=== PATIENT | female | born 1935 | race Caucasian/White ===

== ENCOUNTER 2017-01-27 17:41 | Inpatient (IN) | payer OTHER ==
[~2017-01-27] VITALS: Ht 152.4 cm; Wt 77.1 kg
[~2017-01-27 17:41] MED LIST: ASPI-435 PO; CHOL20009 PO; CLOP1TAB5 PO; DOXY100C76 PO; DULO60CA44 PO; FURO40TA3 PO; IMD/2 PO; INSU1INJ17 SC; ISOS120T5 PO; ISOS60TA25 PO; LEVO50TA6 PO; LISI-729 PO; LORA-741 PO; METO50TA7 PO; MORP1TAB13 PO; NITRSPR6; ONDA4TAB46 PO; OXGN; POLY335025 PO; RNXER500 PO; SENN-65 PO; ZNTT/150 PO
--- NOTE | 2017-01-27 17:53 | EMERGENCY ROOM VISIT NOTE ---
History Report prepared by Miles: Milton Batista Under the Supervision of: Dr. Crissy Bennett M.D. First contact with patient: 17:43 Stated Complaint: AB PAIN, FEVER, NAUSEA, VOMITING, WOUND History of Present Illness The patient is an 81 year old female who presents to the Emergency Room via EMS with complaints of worsening abdominal pain recently. She says that she has chronic pancreatitis, and has had two-thirds of it removed. The patient states that she has abdominal pain most of the time, but recently she has not been "able to handle the pain". She notes that she has been having intermittent episodes of vomiting, as well as intermittent urinary difficulties. Per the nursing staff, the patient was noted to have a fever of 103 prior to arrival. The patient adds that she has an infected wound, and her right leg is noted to be warm. Source of History: patient, nursing staff Onset: Recently Position: abdomen Quality: other (chronic pancreatitis) Timing: worsening Associated Symptoms: + fevers, + vomiting, + urinary symptoms Note: Associated symptoms: Infected wound. Warm right leg. Review of Systems See HPI for pertinent positives & negatives. A total of 10 systems reviewed and were otherwise negative. Past Medical & Surgical Medical Problems: (1) CAD (coronary artery disease) (2) Carotid stenosis (3) Chronic pancreatitis (4) DM2 (diabetes mellitus, type 2) (5) Hypothyroidism (6) Hypoxemia (7) Pacemaker (8) SSS (sick sinus syndrome) (9) Valvular disease Surgical Problems: (1) H/O splenectomy (2) H/O: hysterectomy (3) History of appendectomy (4) History of back surgery (5) History of pancreatic surgery (6) History of partial colectomy (7) Hx of CABG (8) S/P cholecystectomy Family History Patient reports no known family medical history. Social History Smoking Status: Never Smoker Drug Use: none Marital Status: Housing Status: senior care Occupation Status: retired Current/Historical Medications Scheduled Aspirin (Aspirin 81), 162 MG PO QAM Cholecalciferol (Vitamin D), 2,000 UNITS PO DAILY Clopidogrel Bisulfate (Plavix), 75 MG PO DAILY Diltiazem Hcl (Cardizem), 30 MG PO TID Duloxetine Hcl (Cymbalta), 60 MG PO DAILY Fenofibrate (Tricor ), 134 MG PO DAILY Furosemide (Lasix), 40 MG PO DAILY Home O2 Therapy (Oxygen), 2 LITERS NA PRN Insulin Isophane & Reg (Human) (Novolin 70/30 Relion), 64 UNIT(INT) SC QDB Insulin Isophane & Reg (Human) (Novolin 70/30 Relion), 50 UNITS SC QPM Isosorbide Mononitrate Ext Rel (Imdur Ext Rel), 120 MG PO QAM Levothyroxine Sodium (Levothyroxine Sodium), 100 MCG PO QAM Lisinopril (Zestril), 5 MG PO DAILY Metoprolol Succ (Toprol Xl) (Toprol-Xl ), 100 MG PO BID Morphine Sulfate (Morphine Sulfate Er), 60 MG PO BID Morphine Sulfate (Ayesha), 10 MG PO QAM Mupirocin (Bactroban 2% Oint), 1 APPLN EXT DAILY Polyethylene Glycol 3350 (Miralax), 1 DOSE PO DAILY Pregabalin (Lyrica), 25 MG PO BID Ranitidine (Zantac), 150 MG PO BID Ranolazine (Ranexa), 500 MG PO BID Senna/Docusate Sod (Senokot S), 4 TAB PO BID Zinc Oxide (Topical) (Desitin), 1 APPLN TOP DAILY Scheduled PRN Acetaminophen Tab (Tylenol), 650 MG PO Q4 PRN for Pain Loperamide Hcl (Imodium), 2 MG PO BID PRN Lorazepam (Ativan), 0.5 MG PO TID PRN Nitroglycerin (Nitroglycerin Lingual), 1 SPRAY PO Q5M PRN for Pain Ondansetron Hcl (Zofran), 4 MG PO DAILY PRN for Nausea Oxycodone Hcl (Oxycodone Hcl), 10 MG PO Q4H PRN for Pain Allergies Coded Allergies: Amitriptyline (Verified Allergy, Severe, 01/27/17) Codeine (Verified Allergy, Severe, 01/27/17) Cortisone (Verified Allergy, Severe, 01/27/17) Fluconazole (Verified Allergy, Severe, 01/27/17) Iodine (Verified Allergy, Severe, 01/27/17) Pentazocine (Verified Allergy, Severe, SHORTNESS OF BREATH, 01/27/17) Tromethamine (Verified Allergy, Severe, 01/27/17) Gabapentin (Verified Allergy, Mild, 01/27/17) Diflunisal (Verified Allergy, Unknown, unknown, 01/27/17) dayspring Ketorolac (Verified Allergy, Unknown, 01/27/17) Naloxone (Verified Allergy, Unknown, unknown, 01/27/17) dayspring Prochlorperazine (Verified Allergy, Unknown, 01/27/17) Sulfa Antibiotics (Verified Allergy, Unknown, EXTREMELY ITCHY, 01/27/17) Tetracycline (Verified Allergy, Unknown, unk, 01/27/17) gmg Phenothiazines (Verified Adverse Reaction, Intermediate, ANXIOUS, 01/27/17 ) Promethazine (Verified Adverse Reaction, Intermediate, ANXIOUS WITH DOSE ON 01/13/10, 01/27/17) Amlodipine (Verified Adverse Reaction, Unknown, weakness, 01/27/17) gmg Diazepam (Verified Adverse Reaction, Unknown, agitation, 01/27/17) gmg Physical Exam Vital Signs Date Time Temp Pulse Resp B/P (MAP) Pulse Ox O2 Delivery O2 Flow Rate FiO2 01/27/17 20:45 59 16 94 01/27/17 20:31 119/46 01/27/17 20:30 60 17 95 Nasal Cannula 3.0 01/27/17 20:15 60 18 95 01/27/17 20:01 123/46 01/27/17 20:00 60 15 92 Nasal Cannula 3.0 01/27/17 19:45 60 18 90 01/27/17 19:31 108/58 01/27/17 19:30 60 17 92 01/27/17 19:19 38.1 66 18 118/54 92 Nasal Cannula 3.0 01/27/17 18:00 24 87 Room Air 01/27/17 17:59 Room Air 01/27/17 17:54 39.3 70 24 141/58 93 Room Air 01/27/17 17:53 70 Physical Exam Vital signs reviewed. Noted to be febrile General: Elderly, chronically ill-appearing 81 year old female, in no significant distress. HEENT: No scleral icterus, PERRLA, neck supple. Atraumatic. Cardiovascular: Regular rate and rhythm, no extra sounds. Pulmonary: Clear to auscultation bilaterally, normal work of breathing. Abdomen: Obese abdomen. Soft, nontender, nondistended, positive bowel sounds. Musculoskeletal: Sacral decubitus ulcer with surrounding erythema, warm to touch , right lower extremity atrophy with distal erythema over lower extremity. No ulceration or lesion appreciated to lower extremities. Neurologic: Patient awake alert and oriented x 3 Skin: Warm, dry. Medical Decision & Procedures ER Provider Diagnostic Interpretation: X-ray results as stated below per interpretation by me and the radiologist: CHEST ONE VIEW PORTABLE CLINICAL HISTORY: Sepsis dyspnea COMPARISON STUDY: 1027 2] 16 FINDINGS: Mild stable cardiomegaly. Permanent bipolar cardiac pacemaker. Lungs are clear. Diaphragms smooth. IMPRESSION: Mild stable cardiomegaly. No acute process. The above report was generated using voice recognition software. It may contain grammatical, syntax or spelling errors. Electronically signed by: Mart Henson M.D. 01/27/2017 6:44 PM Dictated Date/Time: 01/27/2017 6:43 PM Laboratory Results Test 01/27/17 17:25 01/27/17 18:42 01/27/17 18:52 Prothrombin Time 11.7 SECONDS (9.0-12.0) Prothromb Time International Ratio 1.1 (0.9-1.1) Total Bilirubin 0.5 mg/dl (0.2-1) Aspartate Amino Transf (AST/SGOT) 23 U/L (15-37) Alanine Aminotransferase (ALT/SGPT) 13 U/L (12-78) Alkaline Phosphatase 88 U/L (45-117) Total Protein 7.9 gm/dl (6.4-8.2) Albumin 2.9 gm/dl (3.4-5.0) Globulin 5.0 gm/dl (2.5-4.0) Albumin/Globulin Ratio 0.6 (0.9-2) Lipase 62 U/L (73-393) D-Dimer 740 ug/L FEU (0-500) Bedside Lactic Acid Venous 1.84 mmol/L (0.90-1.70) Laboratory results per my review. Medications Administered Medications (Trade) Dose Ordered Sig/Robert Route Start Time Stop Time Status Last Admin Dose Admin Sodium Chloride 500 ml @ 999 mls/hr Q31M ONCE IV 01/27/17 17:56 01/27/17 18:26 DC 01/27/17 18:00 999 MLS/HR Acetaminophen (Tylenol Tab) 650 mg NOW STAT PO 01/27/17 17:56 01/27/17 17:59 DC 01/27/17 18:13 650 MG Piperacillin Sod/ Tazobactam Sod (Zosyn Iv) 4.5 gm NOW STAT IV 01/27/17 17:58 01/27/17 18:00 DC 01/27/17 19:18 4.5 GM ECG Indication: abdominal pain Rate (beats per minute): 64 Rhythm: other (atrial sensed, ventricularly paced) Findings: no ectopy, other (prolonged AV conduction) ED Course 1746: Past medical records reviewed. The patient was evaluated in room B8. A complete history and physical examination was performed. 1755: Ordered Tylenol Tab 650 mg PO, NSS 500 ml @ 999 mls/hr IV. 1757: Ordered Zosyn IV 4.5 gm. 1999: Ordered Vancomycin HCl 1900 mg/Sodium Chloride 538 ml @ 200 mls/hr IV. 2019: Upon reevaluation, the patient is resting comfortably. I discussed laboratory and radiographic results with her. She verbalized agreement of the treatment plan. The patient will be evaluated for further management and care. 2028: I reviewed the patient's case with Dr. Sayra Orellana intensive care unit registered nurse. He will evaluate the patient for further management. Medical Decision Differential diagnosis: Influenza, other viral illness, pneumonia, urinary tract infection, metabolic abnormality, medication effect, cellulitis, meningitis, intra-abdominal source. This patient was evaluated and appeared to be in no significant distress. Patient is noted to be febrile. She is a large area of erythema to the sacrum and multiple chronic skin changes secondary to surgeries. Patient also has an area of erythema to the right lower extremity that is more subtle without wound. Patient was hydrated with normal saline solution. Laboratory work reveals a marked leukocytosis. She was medicated with IV Zosyn and oral Tylenol. She does have multiple medication allergies. Blood cultures are pending. Patient's case was discussed with the hospitalist service will evaluate the patient for further management. Medication Reconcilliation Current Medication List: was personally reviewed by me Blood Pressure Screening Patient's blood pressure: Normal blood pressure Consults Time Called: 2021 Consulting Physician: Dr. Sayra Orellana intensive care unit registered nurse Returned Call: 2028 I reviewed the patient's case with Dr. Sayra Orellana intensive care unit registered nurse. He will evaluate the patient for further management. Impression Primary Impression: Cellulitis of sacral region Additional Impression: Fever Scribe Attestation The scribe's documentation has been prepared under my direction and personally reviewed by me in its entirety. I confirm that the note above accurately reflects all work, treatment, procedures, and medical decision making performed by me. Departure Information Dispostion Being Evaluated By Hospitalist Referrals Marina Mclaughlin M.D. (PCP) Problem Qualifiers
[2017-01-27 17:54] VITALS: Ht 152.4 cm; Wt 77.1 kg
[2017-01-27] MEDS ORDERED: ACETAMINOPHEN 325 MG TAB PO STA (17:56)
[2017-01-27] MEDS ORDERED: SODIUM CHLORIDE 0.9% 1000ML 500 ML IV ONE (17:56)
[2017-01-27] MEDS ORDERED: PIPERACILLIN/TAZOBACTAM 4.5 GM/100ML D5W IV STA (17:58)
[2017-01-27 18:21] LABS: BASO ABS # 0.01 K/uL (0-0.2); COMPLETE YES; EOS % 1.8 %; HEMATOCRIT 37.8 % (37-47); IG% 0.4 %; LYMPH % 10.8 %; LYMPH ABS # 2.36 K/uL (1.2-3.4); MEAN CELL VOLUME 95.9 fL (80-100); MEAN CORPUSCULAR HEMOGLOBIN 30.7 pg (25-34); MEAN PLATELET VOLUME 9.7 fL (7.4-10.4); PLATELET COUNT 416 K/uL (130-400); RED BLOOD COUNT 3.94 M/uL (4.2-5.4); WHITE BLOOD COUNT 21.83 K/uL (4.8-10.8)
[2017-01-27] MEDS ORDERED: ACET325T96 PO (18:21)
[2017-01-27] MEDS ORDERED: ZINC40OI13 TOP (18:21)
[2017-01-27] MEDS ORDERED: PREG1CAP36 PO (18:21)
[2017-01-27] MEDS ORDERED: OXYC-164 PO (18:21)
[2017-01-27] MEDS ORDERED: FENO134C2 PO (18:21)
[2017-01-27] MEDS ORDERED: BCTROWC EXT (18:21)
[2017-01-27] MEDS ORDERED: METO100T44 PO (18:21)
[2017-01-27] MEDS ORDERED: DILT30TA PO (18:21)
[2017-01-27] MEDS ORDERED: MORP1CAP PO (18:21)
[2017-01-27] MEDS ORDERED: NITR0.1S PO (18:21)
[2017-01-27 18:29] LABS: INR 1.1 (0.9-1.1); PROTHROMBIN TIME (PATIENT) 11.7 SECONDS (9.0-12.0)
[2017-01-27 18:34] LABS: BUN/CREATININE RATIO 19.9 (10-20); CALCIUM 8.6 mg/dl (8.5-10.1); CREATININE 1.1 mg/dl (0.60-1.20)
[2017-01-27 18:37] LABS: ALB/GLOB RATIO 0.6 (0.9-2)
--- NOTE | 2017-01-27 18:45 | DIAGNOSTIC IMAGING REPORT ---
CHEST ONE VIEW PORTABLE CLINICAL HISTORY: Sepsis dyspnea COMPARISON STUDY: 1027 2] 16 FINDINGS: Mild stable cardiomegaly. Permanent bipolar cardiac pacemaker. Lungs are clear. Diaphragms smooth. IMPRESSION: Mild stable cardiomegaly. No acute process. The above report was generated using voice recognition software. It may contain grammatical, syntax or spelling errors. Electronically signed by: Mart Henson M.D. 01/27/2017 6:44 PM Dictated Date/Time: 01/27/2017 6:43 PM
[2017-01-27] MEDS ORDERED: VANCOMYCIN INJ 1,900 MG in SODIUM CHLORIDE 0.9% 500ML 500 ML IV SCH (20:00)
[2017-01-27 21:10] LABS: MAGNESIUM 1.6 mg/dl (1.8-2.4)
[2017-01-27] MEDS ORDERED: METRONIDAZOLE 500MG / 100ML NSS IV STA (21:34)
[2017-01-27] MEDS ORDERED: GLUCOSE 40% GEL 15 GM TUBE PO PRN (21:45)
[2017-01-27] MEDS ORDERED: ACETAMINOPHEN 325 MG TAB PO PRN (21:45)
[2017-01-27] MEDS ORDERED: DEXTROSE 50% 50 ML SYR IV PRN (21:45)
[2017-01-27] MEDS ORDERED: HYDROmorphone INJ 0.5 MG/0.5 ML SYR IV PRN (21:45)
[2017-01-27] MEDS ORDERED: ONDANSETRON INJ 2 MG/ML 2 ML VIAL IV PRN (21:45)
[2017-01-27] MEDS ORDERED: GLUCOSE 10 TABS/TUBE PO PRN (21:45)
[2017-01-27] MEDS ORDERED: NITROGLYCERIN 0.4 MG SL PER TAB CHARGE SL PRN (21:45)
[2017-01-27] MEDS ORDERED: GLUCAGON FOR INJ 1 MG VIAL SQ PRN (21:45)
[2017-01-27] MEDS ORDERED: OXYCODONE HCL IR 5 MG TAB (IMMEDIATE RELEASE) PO PRN (21:45)
[2017-01-27 22:01] LABS: ALLEN TEST POS (POS); ARTERIAL BLOOD GAS BASE EXCESS 1.8 mEq/L (-9-1.8); ARTERIAL BLOOD GAS HCO3 27 mmol/L (19-24); ARTERIAL BLOOD GAS PO2 111 mm/Hg (80-95); ARTERIAL BLOOD GAS pH 7.39 (7.35-7.45); O2 ADMINISTRATION 3 LITERS
[2017-01-27 22:15] LABS: URINE APPEARANCE CLEAR (CLEAR); URINE COLOR DK YELLOW; URINE EPITHELIAL CELL AUTO >30 /lpf (0-5); URINE NITRITE NEG (NEG); URINE SPECIFIC GRAVITY 1.026 (1.000-1.030); UROBILINOGEN NEG (NEG); ZZURINE CULT IF INDIC CATH NO
[2017-01-27 22:21] LABS: MANUAL MICROSCOPIC REQUIRED? NO; REVIEW REQ? NO; URINE BILIRUBIN NEG (NEG)
[2017-01-27] MEDS ORDERED: MAGNESIUM SULFATE 1GM / D5W 1 GM BAG ONE (22:58)
[2017-01-27 23:35] VITALS: BP 97/30; PULSE 59; TEMP 36.6; O2SAT 100
[2017-01-27] MEDS ORDERED: INSULIN ASPART 100 UNITS/ML 3 ML PEN SC STA (23:47)
[2017-01-27] MEDS ORDERED: MAGNESIUM SULFATE 1GM / D5W 1 GM in PREMIXED IN D5W 100 ML IV STA (23:53)
[2017-01-27] MEDS ORDERED: SODIUM CHLORIDE 0.9% 1000ML 1,000 ML IV SCH (23:59)
[2017-01-28] VITALS (9 sets, daily range): BP systolic 109–145; BP diastolic 32–63; PULSE 59–61; TEMP 36.6–37.3; O2SAT 95–100
[2017-01-28] MEDS ORDERED: HEPARIN IV LOW DOSE NO BOLUS STA (00:13)
[2017-01-28] MEDS ORDERED: INSULIN GLARGINE SOLOSTAR 100 UNITS/ML 3 ML PEN SC ONE (00:13)
[2017-01-28] MEDS ORDERED: SODIUM CHLORIDE 0.9% 1000ML 1,000 ML IV ONE (00:15)
[2017-01-28] MEDS: HEPARIN 25,000 UNIT/500ML D5W 500 ML IV PRN ×2 (00:51→08:38)
[2017-01-28] MEDS ORDERED: CEFEPIME IV 2,000 MG in SYRINGE 7.5 ML IV SCH (01:00)
[2017-01-28] MEDS: LEVOTHYROXINE 50 MCG TAB PO SCH (05:46)
--- NOTE | 2017-01-28 06:36 | DIAGNOSTIC IMAGING REPORT ---
ABD/PELVIS NO IV OR ORAL CONT CT DOSE: 721.01 mGy.cm HISTORY: Pain L abd pain TECHNIQUE: Multiaxial CT images of the abdomen and pelvis were performed without contrast. A dose lowering technique was utilized adhering to the principles of ALARA. COMPARISON STUDY: 12/14/2012 FINDINGS: Mild left basilar atelectatic and basilar parenchymal infiltrative change. There is spleen and pancreas appear unremarkable. The kidneys are negative for hydronephrosis. Multiple renal vascular calcifications are present bilaterally. The appendix is surgically absent. There are multiple calcified soft tissue masses involving the posterior gluteal region, anterior to the proximal right and to lesser extent left femur, as well as along the left anterior abdominal wall best seen image 62. Given their course associated calcifications and multiplicity, possibility of a neoplastic process is perhaps less likely. Mild bladder wall thickening. Soft tissue prominence posterior to the rectum and anal verge. Soft tissue prominence medial to the right hip. IMPRESSION: 1. Bibasilar atelectatic and/or infiltrative change. 2. Prior cholecystectomy and appendectomy. 3. Nonobstructive bowel pattern. 4. Scattered soft tissue calcified masses throughout the anterior and posterior abdominal/pelvic region as well as in the region of the proximal right and to lesser extent left femur. 5. Additional soft tissue mass posterior to the anal verge. Given the multiplicity and calcification, the possibly of a entity such as as calcific myositis must be considered. Clinical correlation is suggested. 6. Note is made that the bulk of these calcified soft tissue masses were present on the prior study and do not appear to be progressive. This suggests a nonacute etiology. IMPRESSION: No significant abnormality identified within the abdomen or pelvis. The above report was generated using voice recognition software. It may contain grammatical, syntax or spelling errors. Electronically signed by: Mart Henson M.D. 01/28/2017 6:35 AM Dictated Date/Time: 01/28/2017 6:27 AM
--- NOTE | 2017-01-28 07:04 | DIAGNOSTIC IMAGING REPORT ---
VENOUS DOPPLER LWR EXT BILA HISTORY: Pain. Edema. PE COMPARISON STUDY: 12/26/2015 FINDINGS: There is normal compressibility, flow, and augmentation within the bilateral lower extremity deep venous systems. IMPRESSION: No DVT within the right or left lower extremity. The above report was generated using voice recognition software. It may contain grammatical, syntax or spelling errors. Electronically signed by: Mart Henson M.D. 01/28/2017 7:02 AM Dictated Date/Time: 01/28/2017 7:01 AM
[2017-01-28] MEDS: TRICOR~ORDER AWAITING ACTION SCH ×4 (07:20→23:48)
[2017-01-28 07:27] LABS: BASO % 0.1 %; BASO ABS # 0.03 K/uL (0-0.2); COMPLETE YES; EOS % 3.1 %; HEMATOCRIT 38.4 % (37-47); IG% 0.3 %; LYMPH % 9.9 %; MEAN CELL VOLUME 95.8 fL (80-100); MEAN CORPUSCULAR HEMOGLOBIN 30.4 pg (25-34); MEAN CORPUSCULAR HGB CONC 31.8 g/dl (32-36); MEAN PLATELET VOLUME 9.3 fL (7.4-10.4); MONO % 8.5 %; NEUT % 78.1 %; PLATELET COUNT 384 K/uL (130-400); RED BLOOD COUNT 4.01 M/uL (4.2-5.4); WHITE BLOOD COUNT 20.26 K/uL (4.8-10.8)
[2017-01-28 07:28] LABS: PARTIAL THROMBOPLASTIN RATIO 1.3
[2017-01-28 07:44] LABS: BUN/CREATININE RATIO 21.8 (10-20); CALCIUM 8.6 mg/dl (8.5-10.1); MAGNESIUM 2.1 mg/dl (1.8-2.4); POTASSIUM 3.8 mmol/L (3.5-5.1)
[2017-01-28] MEDS: INSULIN ASPART 100 UNITS/ML 3 ML PEN SC SCH ×4 (07:56→20:32)
[2017-01-28] MEDS ORDERED: HEPARIN IV BOLUS 4,000 UNIT in SYRINGE 0 ML IV ONE (08:00)
[2017-01-28] MEDS: LISINOPRIL 5 MG TAB PO SCH (08:17)
[2017-01-28] MEDS: ISOSORBIDE MONONITRATE 60 MG TABCR PO SCH (08:17)
[2017-01-28] MEDS: RANITIDINE HCL 150 MG TAB PO SCH ×2 (08:17→20:25)
[2017-01-28] MEDS: CLOPIDOGREL BISULFATE 75 MG TAB PO SCH (08:17)
[2017-01-28] MEDS: ASPIRIN 81 MG ECTAB PO SCH (08:18)
[2017-01-28] MEDS: DILTIAZEM HCL 30 MG TAB PO SCH ×3 (08:18→20:25)
[2017-01-28] MEDS: METOPROLOL SUCC 50MG EXT REL TAB PO SCH ×2 (08:19→20:27)
[2017-01-28] MEDS: DULOXETINE HCL 60 MG CAP PO SCH (08:19)
[2017-01-28] MEDS: METRONIDAZOLE / NSS 500 MG in PREMIXED NSS 100 ML IV SCH ×3 (08:20→23:49)
[2017-01-28] MEDS: RANOLAZINE 500 MG ER TAB PO SCH ×2 (08:20→20:26)
[2017-01-28] MEDS: PREGABALIN 25MG CAP PO SCH ×2 (08:28→20:38)
[2017-01-28] MEDS: MoRPHine SULFATE CR 15 MG TAB (MS CONTIN) PO SCH ×2 (08:28→20:24)
[2017-01-28] MEDS: INSULIN GLARGINE SOLOSTAR 100 UNITS/ML 3 ML PEN SC SCH ×2 (08:39→20:32)
[2017-01-28] MEDS ORDERED: OXYCODONE HCL IR 5 MG TAB (IMMEDIATE RELEASE) PO PRN (08:45)
[2017-01-28] MEDS ORDERED: VANCOMYCIN CONSULT ACTIVE PRN (08:45)
[2017-01-28] MEDS ORDERED: CEFEPIME CONSULT ACTIVE PRN ×2 (09:00)
[2017-01-28] MEDS ORDERED: ENOXAPARIN 40 MG/0.4 ML SYR SC SCH (09:00)
[2017-01-28] MEDS ORDERED: VANCOMYCIN INJ 1,750 MG in SODIUM CHLORIDE 0.9% 500ML 500 ML IV SCH (09:30)
--- NOTE | 2017-01-28 11:33 | HISTORY & PHYSICAL EXAMINATION ---
DATE OF ADMISSION: 01/27/2017 PRIMARY CARE DOCTOR: Marina JUARES MD. Patient is a [facility] resident. CHIEF COMPLAINT: Shortness of breath, abdominal pain. HISTORY OF PRESENT ILLNESS: History obtained from patient and records. Medical history significant for CAD status post CABG, sick sinus syndrome pacemaker, HTN, DM 2 insulin requiring; hypertension, PVD, chronic pain on narcotics, chronic pancreatitis as per records. Recent confinement last November 2015 for chest pain. Today patient noted to have worsening abdominal pain on the left, achy, loose stools, non- bloody, some nausea, vomiting. No chest pain, admits of some shortness of breath. No cough symptoms. As per nursing staff temperature was noted to be 103. At the Emergency Room, the patient received Zosyn for sepsis. Reddened sacral decubitus with some drainage. MEDICAL HISTORY: As above. SURGERIES: She has had CABG, cholecystectomy, partial colectomy, pancreatic surgery, back surgery, appendectomy, hysterectomy, splenectomy. HOME MEDICATIONS: Include MiraLax, Lyrica, nitroglycerin, Zofran, oxycodone, Imodium, Ayesha mupirocin, Bactroban, Topral XL, Novolin, Imdur ER, levothyroxine, Ativan, Zestril, Cymbalta, Lasix, Tricor, sleep apnea on home O2 at night as per patient, Novolin, aspirin, Tylenol, vitamin D, Plavix, Cardizem. ALLERGIES: AMITRIPTYLINE, CODEINE, CORTISONE, DIAZEPAM, IODINE, NALOXONE, PENTAZOCINE , PROMETHAZINE, TETRACYCLINE, TROMETHAMINE, TORADOL, AMLODIPINE, FLUCONAZOLE, GABAPENTIN, PHENOTHIAZINE, SULFA. FAMILY HISTORY: Hypertension. PERSONAL AND SOCIAL HISTORY: Nonsmoker, no chronic intake of alcoholic beverages. 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 REVIEW OF SYSTEMS: As per HPI, all 10 systems reviewed. All other ROS negative. PHYSICAL EXAMINATION: VITAL SIGNS: Blood pressure was noted to be 130/86, pulse rate 60, RR 15, temperature 38.1, sats 87 on room air, later 92 on 3 liters. GENERAL: Obese, slightly uncomfortable, no respiratory distress. SKIN: Normal color. Warm. HEENT: [place] palpable conjunctivae. No ptosis. Dry buccal mucosa. NECK: Short neck. No tenderness. LUNGS: Decreased breath sounds. No tenderness. CV: Regular rate and rhythm, palpable LE pulses. ABDOMEN: left-sided abdominal tenderness, some distention. BACK : Ulcerated wound, sacrum with surrounding induration on the with minimal yellow drainage. EXTREMITIES: Minimal LE edema, no tenderness, no gross deformities. NEUROLOGIC: Coherent. No gross focality. LABORATORY DATA: Hemoglobin 12.1, hematocrit 37.8, white blood cell count 21, platelets 416. Sodium noted to be 136, potassium 4, chloride 101, CO2 27, BUN 20, creatinine 1.1, glucose 128. D-dimer was abnormal. trop 0 Hemoglobin A1c October 2016 was 7.4. Chest x-ray cardiomegaly. UA, small wbc est positive. EKG as per my interpretation, paced rhythm. ASSESSMENT: 1. Acute hypoxemic respiratory failure rule out pulmonary embolism. 2. Sepsis possible sources : UTI diarrhea, rule out Clostridium difficile decubitus wound. 3. Abdominal pain Rule out colitis 4. hx chronic pancreatis as per records 5. Sick sinus syndrome status post pacemaker. 6. DM2 insulin requiring, reasonable control as of recent outpatient hemoglobin A1c . 7. Coronary artery disease sp CABG 8. Peripheral vascular disease as per records. 9. Chronic pain on narcotics. Occasional myoclonic jerks noted on exam. PLAN: PCU supplemental O2 baseline ABG. PE workup (VQ scan due to IV CT contrast dye allergy, LE Dopplers) IV heparin until PE ruled out CT abdomen and pelvis RE abdominal pain. Cultures, stool C. difficile Cefepime for possible UTI. Flagyl for presumptive C. dif in light of sepsis criteria. Discontinue Flagyl if stool C. diff negative. Vancomycin, cefepime for infected decubitus wound. May need ID consultation. Wound care nurse consult for wound care. Further management pending workup results. Basal insulin, ISS BG goal 140-180. DVT prophylaxis. Heparin DNR. MTDD
--- NOTE | 2017-01-28 12:45 | DIAGNOSTIC IMAGING REPORT ---
LUNG IMAGING VQ CLINICAL HISTORY: 81 years-old Female presenting with shortness of breath and hypoxemia. TECHNIQUE: Immediately following the inhalation of 33.2 mCi of technetium 99 M DTPA for the ventilation scan and the intravenous administration of 5.6 mCi of technetium 99 M MAA for the perfusion scan, anterior, oblique, lateral, and posterior views of the chest were obtained. Modified PIOPED II criteria were utilized for assessment. COMPARISON: Chest x-ray performed on 01/27/2017. FINDINGS: Photopenic defect on both perfusion and ventilation imaging corresponds with the right subclavian pacer. Cardiomegaly also accounts for the relative increased photopenic defect of the lingula on both ventilation and perfusion. No mismatched defects are identified on this examination. Perfusion and ventilation to both lungs is preserved. Radiotracer accumulation in the region of the hypopharynx/larynx likely from incomplete inspiration or swallowing. Reference: Modified PIOPED II criteria Normal: No perfusion defects. Very low likelihood ratio: Nonsegmental, perfusion defect < chest x-ray lesion, 1-3 small segmental defects, solitary triple matched defect (< or = 1 segment) in mid or upper lung, stripe sign, solitary large pleural effusion, > or = to 2 matched defects with regionally normal chest x-ray. High likelihood ratio: > or = 2 large mismatch segmental defects. Nondiagnostic: All other findings. IMPRESSION: Normal. Electronically signed by: Abimael Ruiz M.D. 01/28/2017 12:43 PM Dictated Date/Time: 01/28/2017 12:38 PM
--- NOTE | 2017-01-28 13:55 | Pharmacy Progress Note ---
Pharmacy Antibiotic Consult Date of Service: Jan 28, 2017. Pharmacy Dosing Scope Pharmacy is consulted to initiate cefepime and vancomycin IV dosing therapy, order appropriate labs and adjust drug dose/frequency. Subjective The patient is a 81 year old female admitted on Jan 27, 2017 at 20:46. History of DM, complicated UTI, infected sacral wound. Objective Height (Feet): 5 Height (Inches): 0 Weight (Kilograms): 75.700 Lab Results (24hrs): Test 01/27/17 17:25 01/27/17 18:42 01/27/17 18:52 01/27/17 21:15 White Blood Count 21.83 K/uL (4.8-10.8) Red Blood Count 3.94 M/uL (4.2-5.4) Hemoglobin 12.1 g/dL (12.0-16.0) Hematocrit 37.8 % (37-47) Mean Corpuscular Volume 95.9 fL (80-100) Mean Corpuscular Hemoglobin 30.7 pg (25-34) Mean Corpuscular Hemoglobin Concent 32.0 g/dl (32-36) Platelet Count 416 K/uL (130-400) Mean Platelet Volume 9.7 fL (7.4-10.4) Neutrophils (%) (Auto) 79.0 % Lymphocytes (%) (Auto) 10.8 % Monocytes (%) (Auto) 8.0 % Eosinophils (%) (Auto) 1.8 % Basophils (%) (Auto) 0.0 % Neutrophils # (Auto) 17.24 K/uL (1.4-6.5) Lymphocytes # (Auto) 2.36 K/uL (1.2-3.4) Monocytes # (Auto) 1.75 K/uL (0.11-0.59) Eosinophils # (Auto) 0.39 K/uL (0-0.5) Basophils # (Auto) 0.01 K/uL (0-0.2) RDW Standard Deviation 55.5 fL (36.4-46.3) RDW Coefficient of Variation 15.9 % (11.5-14.5) Immature Granulocyte % (Auto) 0.4 % Immature Granulocyte # (Auto) 0.08 K/uL (0.00-0.02) Prothrombin Time 11.7 SECONDS (9.0-12.0) Prothromb Time International Ratio 1.1 (0.9-1.1) Activated Partial Thromboplast Time 26.8 SECONDS (21.0-31.0) Partial Thromboplastin Ratio 1.0 Sodium Level 136 mmol/L (136-145) Potassium Level 4.0 mmol/L (3.5-5.1) Chloride Level 101 mmol/L (98-107) Carbon Dioxide Level 27 mmol/L (21-32) Anion Gap 7.0 mmol/L (3-11) Blood Urea Nitrogen 22 mg/dl (7-18) Creatinine 1.10 mg/dl (0.60-1.20) Est Creatinine Clear Calc Drug Dose 35.8 ml/min Estimated GFR () 54.1 Estimated GFR (Non- 46.7 BUN/Creatinine Ratio 19.9 (10-20) Random Glucose 128 mg/dl (70-99) Calcium Level 8.6 mg/dl (8.5-10.1) Magnesium Level 1.6 mg/dl (1.8-2.4) Total Bilirubin 0.5 mg/dl (0.2-1) Aspartate Amino Transf (AST/SGOT) 23 U/L (15-37) Alanine Aminotransferase (ALT/SGPT) 13 U/L (12-78) Alkaline Phosphatase 88 U/L (45-117) Total Protein 7.9 gm/dl (6.4-8.2) Albumin 2.9 gm/dl (3.4-5.0) Globulin 5.0 gm/dl (2.5-4.0) Albumin/Globulin Ratio 0.6 (0.9-2) Lipase 62 U/L (73-393) D-Dimer 740 ug/L FEU (0-500) Bedside Lactic Acid Venous 1.84 mmol/L (0.90-1.70) Urine Color DK YELLOW Urine Appearance CLEAR (CLEAR) Urine pH 5.0 (4.5-7.5) Urine Specific Howell 1.026 (1.000-1.030) Urine Protein NEG (NEG) Urine Glucose (UA) NEG (NEG) Urine Ketones NEG (NEG) Urine Occult Blood NEG (NEG) Urine Nitrite NEG (NEG) Urine Bilirubin NEG (NEG) Urine Urobilinogen NEG (NEG) Urine Leukocyte Esterase SMALL (NEG) Urine WBC (Auto) 1-5 /hpf (0-5) Urine RBC (Auto) 5-10 /hpf (0-4) Urine Hyaline Casts (Auto) 1-5 /lpf (0-5) Urine Epithelial Cells (Auto) >30 /lpf (0-5) Urine Bacteria (Auto) NEG (NEG) Test 01/27/17 21:48 01/28/17 07:10 01/28/17 07:22 01/28/17 10:57 Arterial Blood pH 7.39 (7.35-7.45) Arterial Blood Partial Pressure CO2 46 mmHg (35-46) Arterial Blood Partial Pressure O2 111 mm/Hg (80-95) Arterial Blood HCO3 27 mmol/L (19-24) Arterial Blood Oxygen Saturation 98.0 % (90-95) Arterial Blood Base Excess 1.8 mEq/L (-9-1.8) Arterial Blood Gas Delivery 3 LITERS Ace Test POS (POS) Lactic Acid Level 1.2 mmol/L (0.4-2.0) White Blood Count 20.26 K/uL (4.8-10.8) Red Blood Count 4.01 M/uL (4.2-5.4) Hemoglobin 12.2 g/dL (12.0-16.0) Hematocrit 38.4 % (37-47) Mean Corpuscular Volume 95.8 fL (80-100) Mean Corpuscular Hemoglobin 30.4 pg (25-34) Mean Corpuscular Hemoglobin Concent 31.8 g/dl (32-36) Platelet Count 384 K/uL (130-400) Mean Platelet Volume 9.3 fL (7.4-10.4) Neutrophils (%) (Auto) 78.1 % Lymphocytes (%) (Auto) 9.9 % Monocytes (%) (Auto) 8.5 % Eosinophils (%) (Auto) 3.1 % Basophils (%) (Auto) 0.1 % Neutrophils # (Auto) 15.81 K/uL (1.4-6.5) Lymphocytes # (Auto) 2.00 K/uL (1.2-3.4) Monocytes # (Auto) 1.73 K/uL (0.11-0.59) Eosinophils # (Auto) 0.62 K/uL (0-0.5) Basophils # (Auto) 0.03 K/uL (0-0.2) RDW Standard Deviation 55.9 fL (36.4-46.3) RDW Coefficient of Variation 16.0 % (11.5-14.5) Immature Granulocyte % (Auto) 0.3 % Immature Granulocyte # (Auto) 0.07 K/uL (0.00-0.02) Activated Partial Thromboplast Time 32.8 SECONDS (21.0-31.0) Partial Thromboplastin Ratio 1.3 Sodium Level 139 mmol/L (136-145) Potassium Level 3.8 mmol/L (3.5-5.1) Chloride Level 104 mmol/L (98-107) Carbon Dioxide Level 26 mmol/L (21-32) Anion Gap 9.0 mmol/L (3-11) Blood Urea Nitrogen 22 mg/dl (7-18) Creatinine 1.00 mg/dl (0.60-1.20) Est Creatinine Clear Calc Drug Dose 39.4 ml/min Estimated GFR () 60.8 Estimated GFR (Non- 52.4 BUN/Creatinine Ratio 21.8 (10-20) Random Glucose 110 mg/dl (70-99) Calcium Level 8.6 mg/dl (8.5-10.1) Magnesium Level 2.1 mg/dl (1.8-2.4) Troponin I 0.072 ng/ml (0-0.045) Bedside Glucose 100 mg/dl (70-90) 156 mg/dl (70-90) Micro Results: 01/27 blood x2 pending 01/27 clean catch urine pendiing 01/27 nasal swab (+) MRSA 01/28 drainage surface back- rare GPC, ID and sens. pending Recent Pertinent Medications Item Value Date Time Vancomycin HCl 275 ml @ 125 mls/hr 01/29/17 0600 1250 mg/Sodium Q20H/IV Chloride Cefepime HCl 2000 20 ml @ 5 mls/min 01/29/17 0000 mg/Syringe DAILY@0000/IV Vancomycin HCl 535 ml @ 200 mls/hr 01/28/17 0930 1750 mg/Sodium TODAY@0930/IV 01/28/17 1022 Chloride Metronidazole 500 100 ml @ 100 mls/hr 01/28/17 0800 mg/Prmx Q8H/IV 01/28/17 0820 Cefepime HCl 2000 20 ml @ 5 mls/min 01/28/17 0100 mg/Syringe TODAY@0100/IV 01/28/17 0041 Piperacillin Sod/ 4.5 gm 01/27/17 1758 Tazobactam Sod NOW STAT/IV 01/27/17 191 (Zosyn Iv) Assessment & Plan Loading dose: vancomycin 1750 mg IV X 1 dose then: 1250 mg IV every 20 hours. Goal trough level estimate: between 15-20 mcg/mL. Trough has been ordered for: 01/30/17 before 0200 dose. May not be quite steady- state but prefer to check sooner than later in elderly patient. Loading dose cefepime 2 Gm x1, then target dose 2 Gm q12h for complicated UTI, decrease to 2 Gm q24h for CrCl 30-60 ml/min. Pharmacy will continue to follow and will adjust dose/frequency as necessary. Thank you
[2017-01-28] MEDS: LORAZEPAM 0.5 MG TAB PO PRN (20:24)
--- NOTE | 2017-01-28 20:33 | Progress Note ---
Internal Med Progress Note Date of Service: Jan 28, 2017. Provider Documentation: SUBJECTIVE: feels much better today has minimum cough , no fever or chills OBJECTIVE: Vital Signs-as noted below Exam: General-elderly female , no sign of distress Eyes-sclera non icteric ENT-normal oropharynx, moist oral mucosa Neck-no thyromegaly, trachea midline Lungs-diminished breath sound , no wheeze or rales Heart-regular S1/S2 Abdomen-soft ,non tender , bowel sound active Extremities-trace bilateral edema Neuro-no focal deficit Lab data as noted below. ASSESSMENT & PLAN: ABDOMINAL PAIN /NAUSEA /VOMITING DIARRHEA symptom has resolved, diet advanced CT abdomen /pelvis : No significant abnormality identified within the abdomen or pelvis. has episodes water diarrhea at [place] ordered stool for Cdiff on Flagyl empirically ACUTE HYPOXEMIC RESPIRATORY FAILURE : spo2 was 87 % in RA , tachypnea symptom improved on nasal canula adequate oxygenation lower ext Doppler , negative for DVT V/q scan negative for PE Iv heparin D/kirby No evidence of sepsis or pneumonia follow cultures on empiric Abx on Cefepime , Vanco /Flagyl will adjust abx once culture report is obtained SACRAL DECUBITUS /PRESSURE WOUND : Present on admission appreciate input form Wound care unstagable wound , no active infection noted cont local wound care HX OF SICK SINUS SYNDROME S/P Pacemaker placement TYPE 2 DM Cont insulin SSI DVT PROPHYLAXIS sub q heparin DISPOSITION was at [place] for SNF return to when medically stable Social service consulted for discharge planning Vital Signs: Date Time Temp Pulse Resp B/P (MAP) Pulse Ox O2 Delivery O2 Flow Rate FiO2 01/29/17 16:00 95 Room Air 01/29/17 15:41 36.5 60 22 155/53 (87) 95 Room Air 01/29/17 14:00 61 153/59 (90) 90 Room Air 01/29/17 12:00 Room Air 01/29/17 11:39 36.9 60 20 151/63 (92) 92 Room Air 01/29/17 08:00 Room Air 01/29/17 07:15 37.2 67 20 166/67 (100) 98 Nasal Cannula 3.0 01/29/17 04:00 Nasal Cannula 3.0 01/29/17 03:30 37.2 64 18 153/61 (91) 99 Nasal Cannula 3.0 01/28/17 23:59 Nasal Cannula 3.0 01/28/17 23:35 37.3 59 18 145/48 (80) 95 Room Air 01/28/17 20:00 95 Room Air 01/28/17 18:41 36.8 61 18 120/63 (82) 96 Room Air Lab Results: Results Past 24 Hours Test 01/28/17 20:03 01/29/17 04:22 01/29/17 06:07 01/29/17 06:34 Range/Units Bedside Glucose 234 156 166 70-90 mg/dl White Blood Count 15.25 4.8-10.8 K/uL Red Blood Count 3.74 4.2-5.4 M/uL Hemoglobin 11.6 12.0-16.0 g/dL Hematocrit 36.0 37-47 % Mean Corpuscular Volume 96.3 80-100 fL Mean Corpuscular Hemoglobin 31.0 25-34 pg Mean Corpuscular Hemoglobin Concent 32.2 32-36 g/dl Platelet Count 368 130-400 K/uL Mean Platelet Volume 9.7 7.4-10.4 fL Neutrophils (%) (Auto) 61.3 % Lymphocytes (%) (Auto) 21.0 % Monocytes (%) (Auto) 13.5 % Eosinophils (%) (Auto) 3.5 % Basophils (%) (Auto) 0.3 % Neutrophils # (Auto) 9.36 1.4-6.5 K/uL Lymphocytes # (Auto) 3.20 1.2-3.4 K/uL Monocytes # (Auto) 2.06 0.11-0.59 K/uL Eosinophils # (Auto) 0.53 0-0.5 K/uL Basophils # (Auto) 0.04 0-0.2 K/uL RDW Standard Deviation 58.0 36.4-46.3 fL RDW Coefficient of Variation 16.5 11.5-14.5 % Immature Granulocyte % (Auto) 0.4 % Immature Granulocyte # (Auto) 0.06 0.00-0.02 K/uL Test 01/29/17 11:23 01/29/17 16:20 Range/Units Bedside Glucose 164 276 70-90 mg/dl
[2017-01-29] VITALS (8 sets, daily range): BP systolic 148–166; BP diastolic 53–70; PULSE 60–67; TEMP 36.5–37.2; O2SAT 90–99
[2017-01-29] MEDS ORDERED: CEFEPIME IV 2,000 MG in SYRINGE 7.5 ML IV SCH
[2017-01-29] MEDS ORDERED: INSULIN GLARGINE SOLOSTAR 100 UNITS/ML 3 ML PEN SC ONE (03:57)
[2017-01-29] MEDS ORDERED: NURSING VERBAL MED ORDER ONE (04:15)
[2017-01-29] MEDS ORDERED: VANCOMYCIN INJ 1,250 MG in SODIUM CHLORIDE 0.9% 250ML 250 ML IV SCH (06:00)
[2017-01-29] MEDS: LEVOTHYROXINE 50 MCG TAB PO SCH (06:38)
[2017-01-29 06:50] LABS: BASO % 0.3 %; BASO ABS # 0.04 K/uL (0-0.2); COMPLETE YES; EOS % 3.5 %; IG% 0.4 %; MEAN CELL VOLUME 96.3 fL (80-100); MEAN CORPUSCULAR HGB CONC 32.2 g/dl (32-36); MEAN PLATELET VOLUME 9.7 fL (7.4-10.4); MONO % 13.5 %; NEUT % 61.3 %; PLATELET COUNT 368 K/uL (130-400); RED BLOOD COUNT 3.74 M/uL (4.2-5.4); WHITE BLOOD COUNT 15.25 K/uL (4.8-10.8)
[2017-01-29] MEDS: RANITIDINE HCL 150 MG TAB PO SCH ×2 (07:43→20:29)
[2017-01-29] MEDS: LISINOPRIL 5 MG TAB PO SCH (07:43)
[2017-01-29] MEDS: METOPROLOL SUCC 50MG EXT REL TAB PO SCH ×2 (07:44→20:29)
[2017-01-29] MEDS: RANOLAZINE 500 MG ER TAB PO SCH ×2 (07:44→20:29)
[2017-01-29] MEDS: DULOXETINE HCL 60 MG CAP PO SCH (07:45)
[2017-01-29] MEDS: ASPIRIN 81 MG ECTAB PO SCH (07:45)
[2017-01-29] MEDS: ISOSORBIDE MONONITRATE 60 MG TABCR PO SCH (07:45)
[2017-01-29] MEDS: INSULIN ASPART 100 UNITS/ML 3 ML PEN SC SCH ×4 (07:45→20:33)
[2017-01-29] MEDS: CLOPIDOGREL BISULFATE 75 MG TAB PO SCH (07:45)
[2017-01-29] MEDS: DILTIAZEM HCL 30 MG TAB PO SCH ×3 (07:45→20:29)
[2017-01-29] MEDS: METRONIDAZOLE / NSS 500 MG in PREMIXED NSS 100 ML IV SCH ×2 (07:47→16:20)
[2017-01-29] MEDS: TRICOR~ORDER AWAITING ACTION SCH ×2 (07:47→16:00)
[2017-01-29] MEDS: MoRPHine SULFATE CR 15 MG TAB (MS CONTIN) PO SCH ×2 (07:57→20:29)
[2017-01-29] MEDS: PREGABALIN 25MG CAP PO SCH ×2 (07:57→20:29)
--- NOTE | 2017-01-29 18:17 | Progress Note ---
Internal Med Progress Note Date of Service: Jan 29, 2017. Provider Documentation: SUBJECTIVE: awake and alert , sitting up on chair , no complain of hypoxia on room air finishing her dinner , no complain of abdominal pain , no nausea no further episode of loose bowel movement feels like her self wants to return back to [facility] no cough or SOB OBJECTIVE: Vital Signs-as noted below Exam: General-elderly female , no sign of distress Eyes-sclera non icteric ENT-normal oropharynx, moist oral mucosa Neck-no thyromegaly, trachea midline Lungs-diminished breath sound , no wheeze or rales Heart-regular S1/S2 Abdomen-soft ,non tender , bowel sound active Extremities-trace bilateral edema Neuro-no focal deficit Lab data as noted below. ASSESSMENT & PLAN: ABDOMINAL PAIN /NAUSEA /VOMITING DIARRHEA symptom has resolved, diet advanced -tolerating well CT abdomen /pelvis : No significant abnormality identified within the abdomen or pelvis. no diarrhea or loose bowel movement ordered stool for C diff -no sample obtained as pt did not had any bowel movement D/C Flagyl ACUTE HYPOXEMIC RESPIRATORY FAILURE : spo2 was 87 % in RA , tachypnea symptom improved on nasal canula adequate oxygenation lower ext Doppler , negative for DVT V/q scan negative for PE Iv heparin D/kirby No evidence of sepsis or pneumonia cultures negative D/c ABx Abx on Cefepime , Vanco /Flagyl SACRAL DECUBITUS /PRESSURE WOUND : Present on admission appreciate input form Wound care unstagable wound , no active infection noted cont local wound care HX OF SICK SINUS SYNDROME S/P Pacemaker placement TYPE 2 DM Cont insulin SSI DVT PROPHYLAXIS sub q heparin DISPOSITION was at [place] for SNF return to [facility] tomorrow will need arrangements for transport Social service consulted for discharge planning Vital Signs: Date Time Temp Pulse Resp B/P (MAP) Pulse Ox O2 Delivery O2 Flow Rate FiO2 01/29/17 16:00 95 Room Air 01/29/17 15:41 36.5 60 22 155/53 (87) 95 Room Air 01/29/17 14:00 61 153/59 (90) 90 Room Air 01/29/17 12:00 Room Air 01/29/17 11:39 36.9 60 20 151/63 (92) 92 Room Air 01/29/17 08:00 Room Air 01/29/17 07:15 37.2 67 20 166/67 (100) 98 Nasal Cannula 3.0 01/29/17 04:00 Nasal Cannula 3.0 01/29/17 03:30 37.2 64 18 153/61 (91) 99 Nasal Cannula 3.0 01/28/17 23:59 Nasal Cannula 3.0 01/28/17 23:35 37.3 59 18 145/48 (80) 95 Room Air 01/28/17 20:00 95 Room Air 01/28/17 18:41 36.8 61 18 120/63 (82) 96 Room Air Lab Results: Results Past 24 Hours Test 01/28/17 20:03 01/29/17 04:22 01/29/17 06:07 01/29/17 06:34 Range/Units Bedside Glucose 234 156 166 70-90 mg/dl White Blood Count 15.25 4.8-10.8 K/uL Red Blood Count 3.74 4.2-5.4 M/uL Hemoglobin 11.6 12.0-16.0 g/dL Hematocrit 36.0 37-47 % Mean Corpuscular Volume 96.3 80-100 fL Mean Corpuscular Hemoglobin 31.0 25-34 pg Mean Corpuscular Hemoglobin Concent 32.2 32-36 g/dl Platelet Count 368 130-400 K/uL Mean Platelet Volume 9.7 7.4-10.4 fL Neutrophils (%) (Auto) 61.3 % Lymphocytes (%) (Auto) 21.0 % Monocytes (%) (Auto) 13.5 % Eosinophils (%) (Auto) 3.5 % Basophils (%) (Auto) 0.3 % Neutrophils # (Auto) 9.36 1.4-6.5 K/uL Lymphocytes # (Auto) 3.20 1.2-3.4 K/uL Monocytes # (Auto) 2.06 0.11-0.59 K/uL Eosinophils # (Auto) 0.53 0-0.5 K/uL Basophils # (Auto) 0.04 0-0.2 K/uL RDW Standard Deviation 58.0 36.4-46.3 fL RDW Coefficient of Variation 16.5 11.5-14.5 % Immature Granulocyte % (Auto) 0.4 % Immature Granulocyte # (Auto) 0.06 0.00-0.02 K/uL Test 01/29/17 11:23 01/29/17 16:20 Range/Units Bedside Glucose 164 276 70-90 mg/dl
[2017-01-29] MEDS: LORAZEPAM 0.5 MG TAB PO PRN (18:22)
--- NOTE | 2017-01-29 18:23 | Discharge Instructions ---
Discharge Instructions Date of Service Jan 29, 2017. Admission Reason for Admission: Hypoxemia Discharge Discharge Diagnosis / Problem: ABDOMINAL PAIN /DIARRHEA -RESOLVED, SOB / HYPOXIA -RESOLVED Discharge Goals Goal(s): Improve function, Increase independence, Improve disease control, Diagnostic testing, Therapeutic intervention Activity Recommendations Activity Level: Assistance Required Therapies: Physical Therapy, Occupational Therapy . Additional Information Patient informed of condition: Yes Advance Directives: Yes DNR: Yes Level of Care: Skilled Communicable Disease: No Prognosis: Stable Retana Catheter: No Instructions / Follow-Up Instructions / Follow-Up FOLLOW UP WITH PHYSICIAN AT [facility] Diet Patient's current hospital diet: Diabetes Type 2 Diet, Low Lactose Diet Discharge Diet Recommended Diet: Diabetes Type 2 Diet, Low Lactose Diet Pending Studies Studies pending at discharge: no Medical Emergencies . Who to Call and When: Medical Emergencies: If at any time you feel your situation is an emergency, please call 911 immediately. . Non-Emergent Contact Non-Emergency issues call your: Primary Care Provider . . "Provider Documentation" section prepared by Candi Abreu. . Core Measure Problem Core Measures: None
[2017-01-29] MEDS: INSULIN GLARGINE SOLOSTAR 100 UNITS/ML 3 ML PEN SC SCH (20:34)
[2017-01-30] MEDS ORDERED: VANCOMYCIN TROUGH ONE (01:30)
[2017-01-30] MEDS: LEVOTHYROXINE 50 MCG TAB PO SCH (05:36)
[2017-01-30 05:39] VITALS: O2SAT 96
[2017-01-30 07:18] VITALS: BP 179/80; PULSE 64; TEMP 36.7; O2SAT 96
[2017-01-30 07:46] LABS: BASO % 0.2 %; BASO ABS # 0.03 K/uL (0-0.2); COMPLETE YES; EOS % 2.5 %; IG% 0.4 %; LYMPH % 17.3 %; LYMPH ABS # 2.37 K/uL (1.2-3.4); MEAN CELL VOLUME 94.8 fL (80-100); MEAN CORPUSCULAR HEMOGLOBIN 30.9 pg (25-34); MEAN CORPUSCULAR HGB CONC 32.6 g/dl (32-36); MEAN PLATELET VOLUME 9.9 fL (7.4-10.4); MONO % 12.4 %; NEUT % 67.2 %; PLATELET COUNT 410 K/uL (130-400); RED BLOOD COUNT 4.01 M/uL (4.2-5.4); WHITE BLOOD COUNT 13.67 K/uL (4.8-10.8)
[2017-01-30] MEDS: TRICOR~ORDER AWAITING ACTION SCH ×2 (07:55)
[2017-01-30] MEDS: PREGABALIN 25MG CAP PO SCH (07:59)
[2017-01-30] MEDS: DULOXETINE HCL 60 MG CAP PO SCH (07:59)
[2017-01-30] MEDS: CLOPIDOGREL BISULFATE 75 MG TAB PO SCH (07:59)
[2017-01-30] MEDS: RANOLAZINE 500 MG ER TAB PO SCH (07:59)
[2017-01-30] MEDS: DILTIAZEM HCL 30 MG TAB PO SCH (07:59)
[2017-01-30] MEDS: ASPIRIN 81 MG ECTAB PO SCH (07:59)
[2017-01-30] MEDS: ISOSORBIDE MONONITRATE 60 MG TABCR PO SCH (07:59)
[2017-01-30] MEDS: MoRPHine SULFATE CR 15 MG TAB (MS CONTIN) PO SCH (07:59)
[2017-01-30] MEDS: LORAZEPAM 0.5 MG TAB PO PRN (08:00)
[2017-01-30] MEDS: RANITIDINE HCL 150 MG TAB PO SCH (08:00)
[2017-01-30] MEDS: METOPROLOL SUCC 50MG EXT REL TAB PO SCH (08:00)
[2017-01-30] MEDS: LISINOPRIL 5 MG TAB PO SCH (08:00)
[2017-01-30] MEDS: INSULIN ASPART 100 UNITS/ML 3 ML PEN SC SCH ×2 (08:09→12:10)
[2017-01-30] MEDS: INSULIN GLARGINE SOLOSTAR 100 UNITS/ML 3 ML PEN SC SCH (08:10)
[2017-01-30 08:31] LABS: CREATININE 0.8 mg/dl (0.60-1.20)
[2017-01-30] MEDS ORDERED: MORP1CAP PO (09:44)
[2017-01-30] MEDS ORDERED: MORP1TAB13 PO (09:44)
[2017-01-30] MEDS ORDERED: LORA-741 PO (09:44)
[2017-01-30] MEDS ORDERED: OXYC-164 PO (09:44)
--- NOTE | 2017-01-30 09:48 | Discharge Summary ---
Discharge Summary Date of Service Jan 30, 2017. Discharge Summary Admission Date: Jan 27, 2017 at 20:46 Discharge Date: Jan 30, 2017 Discharge Disposition: [facility] facility ([facility] ) Principal Diagnosis: ABDOMINAL PAIN /DIARRHEA -RESOLVED, SOB /HYPOXIA -RESOLVED Procedures: LOWER EXTREMITY DOPPLER : IMPRESSION: No DVT within the right or left lower extremity. LUNG SCAN V/Q: normal study CT ABDOMEN/PELVIS: IMPRESSION: 1. Bibasilar atelectatic and/or infiltrative change. 2. Prior cholecystectomy and appendectomy. 3. Nonobstructive bowel pattern. 4. Scattered soft tissue calcified masses throughout the anterior and posterior abdominal/pelvic region as well as in the region of the proximal right and to lesser extent left femur. 5. Additional soft tissue mass posterior to the anal verge. Given the multiplicity and calcification, the possibly of a entity such as as calcific myositis must be considered. Clinical correlation is suggested. 6. Note is made that the bulk of these calcified soft tissue masses were present on the prior study and do not appear to be progressive. This suggests a nonacute etiology. IMPRESSION: No significant abnormality identified within the abdomen or pelvis. Medication Reconciliation Continued Medications: Acetaminophen Tab (Tylenol) 325 Mg Tab 650 MG PO Q4 PRN for Pain, TAB Aspirin (Aspirin 81) 81 Mg Tab 162 MG PO QAM Cholecalciferol (Vitamin D) 2,000 Unit Tab 2000 UNITS PO DAILY Clopidogrel Bisulfate (Plavix) 75 Mg Tab 75 MG PO DAILY, TAB Diltiazem Hcl (Cardizem) 30 Mg Tab 30 MG PO TID, TAB Duloxetine Hcl (Cymbalta) 60 Mg Cap 60 MG PO DAILY, CAP Fenofibrate (Tricor ) 134 Mg Cap 134 MG PO DAILY, CAP Furosemide (Lasix) 40 Mg Tab 40 MG PO DAILY Home O2 Therapy (Oxygen) Gas 2 LITERS NA PRN Insulin Isophane & Reg (Human) (Novolin 70/30 Relion) 1 Inj Inj 64 UNIT(INT) SC QDB Insulin Isophane & Reg (Human) (Novolin 70/30 Relion) 1 Inj Inj 50 UNITS SC QPM Isosorbide Mononitrate Ext Rel (Imdur Ext Rel) 120 Mg Ertab 120 MG PO QAM, TAB Levothyroxine Sodium (Levothyroxine Sodium) 50 Mcg Tab 100 MCG PO QAM Lisinopril (Zestril) 5 Mg Tab 5 MG PO DAILY, TAB Loperamide Hcl (Imodium) 2 Mg Cap 2 MG PO BID PRN, CAP Lorazepam (Ativan) 0.5 Mg Tab 0.5 MG PO TID PRN, #10 TAB (This prescription has been renewed) Metoprolol Succ (Toprol Xl) (Toprol-Xl ) 100 Mg Tabcr 100 MG PO BID, TAB Morphine Sulfate (Morphine Sulfate Er) 60 Mg Tab 60 MG PO BID, #10 (This prescription has been renewed) Morphine Sulfate (Ayesha) 10 Mg Cap 10 MG PO QAM, #10 (This prescription has been renewed) TAKES WITH 60MG QAM TO EQUAL 70MG Mupirocin (Bactroban 2% Oint) 66 Appln/22 Gm Oint 1 APPLN EXT DAILY, TUBE Nitroglycerin (Nitroglycerin Lingual) 0.4 Mg/Malone Spr 1 SPRAY PO Q5M PRN for Pain Ondansetron Hcl (Zofran) 4 Mg Tab 4 MG PO DAILY PRN for Nausea, TAB Oxycodone Hcl (Oxycodone Hcl) 10 Mg Tab 10 MG PO Q4H PRN for Pain, #10 (This prescription has been renewed) Polyethylene Glycol 3350 (Miralax) 1 Pow Pow 1 DOSE PO DAILY Pregabalin (Lyrica) 25 Mg Cap 25 MG PO BID, CAP Ranitidine (Zantac) 150 Mg Tab 150 MG PO BID, TAB Ranolazine (Ranexa) 500 Mg Tabcr 500 MG PO BID, #60 2 Refills Senna/Docusate Sod (Senokot S) 1 Tab Tab 4 TAB PO BID, TAB Zinc Oxide (Topical) (Desitin) 40 % Oin 1 APPLN TOP DAILY Admission Information HPI (per Admitting provider): DATE OF ADMISSION: 01/27/2017 PRIMARY CARE DOCTOR: Marina MCLAUGHLIN MD. The patient is a [facility] resident. CHIEF COMPLAINT: Shortness of breath, abdominal pain. HISTORY OF PRESENT ILLNESS: History obtained from patient records. Medical history significant for sick sinus syndrome, status post pacemaker placement, CAD status post CABG, sick sinus syndrome pacemaker, diabetes type 2 insulin requiring; hypertension, PVD, chronic pain on narcotics, chronic pancreatitis as per records. Recent confinement last November 2015 for chest pain, yesterday patient noted to have worsening abdominal pain on the left, achy, loose stools, some nausea, vomiting, no chest pain, admits of some shortness of breath. As per nursing staff temperature was noted to be 103. At the Emergency Room, the patient received Zosyn for sepsis. Note of reddened sacral decubitus with some drainage. MEDICAL HISTORY: As above. SURGERIES: She has had CABG, cholecystectomy, partial colectomy, pancreatic surgery, back surgery, appendectomy, hysterectomy, splenectomy. HOME MEDICATIONS: Include MiraLax, Lyrica, nitroglycerin, Zofran, oxycodone, Imodium, Ayesha mupirocin, Bactroban, Topral XL, Novolin, Imdur ER, levothyroxine, Ativan, Zestril, Cymbalta, Lasix, Tricor, sleep apnea on home O2 at night as per patient, Novolin, aspirin, Tylenol, vitamin D, Plavix, Cardizem. ALLERGIES: AMITRIPTYLINE, CODEINE, CORTISONE, DIAZEPAM, IODINE, NALOXONE, PROMETHAZINE, TETRACYCLINE, TROMETHAMINE, TORADOL, AMLODIPINE, FLUCONAZOLE, GABAPENTIN, PHENOTHIAZINE, SULFA. FAMILY HISTORY: Hypertension. PERSONAL AND SOCIAL HISTORY: Nonsmoker, no chronic intake of alcoholic beverages. 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 REVIEW OF SYSTEMS: As per HPI, all 10 systems reviewed. All other ROS negative. Physical Exam (per Admitting): PHYSICAL EXAMINATION: VITAL SIGNS: Blood pressure was noted to be 130/86, pulse rate 60, RR 15, temperature 38.1, sats 87 on room air, later 92 on 3 liters. GENERAL: Obese, slightly uncomfortable, no respiratory distress. SKIN: Normal color. Warm. HEENT: [place] palpable conjunctivae. No ptosis. Dry buccal mucosa. NECK: Short neck. No tenderness. LUNGS: Decreased breath sounds. No tenderness. HEART: Regular rate and rhythm, palpable LE pulses. ABDOMEN: Some left-sided abdominal tenderness, some distention. EXTREMITIES: Minimal edema, no tenderness, no gross deformities. Back exam, induration on the sacrum with an ulcer with minimal yellow drainage. NEUROLOGIC: Coherent. No gross focality. Hospital Course ABDOMINAL PAIN /NAUSEA /VOMITING DIARRHEA possible viral gastroenteritis symptom has resolved, tolerating diet well CT abdomen /pelvis : No significant abnormality identified within the abdomen or pelvis. no diarrhea or loose bowel movement ordered stool for C diff -no sample obtained as pt did not had any bowel movement D/C Flagyl ACUTE HYPOXEMIC RESPIRATORY FAILURE : resolved spo2 was 87 % in RA , tachypnea on room air, She wears supplemental oxygen at night (3L NC). Chest xray : IMPRESSION: Mild stable cardiomegaly. No acute process. lower ext Doppler , negative for DVT V/q scan negative for PE Iv heparin D/kirby No evidence of sepsis or pneumonia cultures negative D/c ABx Cefepime , Vanco /Flagyl SACRAL DECUBITUS /PRESSURE WOUND : Present on admission appreciate input form Wound care unstagable wound , no active infection noted cont local wound care HX OF SICK SINUS SYNDROME S/P Pacemaker placement TYPE 2 DM Cont insulin SSI DVT PROPHYLAXIS sub q heparin DISPOSITION was at [place] for SNF [facility] today for continued rehab Total time spent on discharge = 35mins This includes examination of the patient, discharge planning, medication reconciliation, and communication with other providers. Discharge Instructions Discharge Instructions Date of Service Jan 29, 2017. Admission Reason for Admission: Hypoxemia Discharge Discharge Diagnosis / Problem: ABDOMINAL PAIN /DIARRHEA -RESOLVED, SOB / HYPOXIA -RESOLVED Discharge Goals Goal(s): Improve function, Increase independence, Improve disease control, Diagnostic testing, Therapeutic intervention Activity Recommendations Activity Level: Assistance Required Therapies: Physical Therapy, Occupational Therapy . Additional Information Patient informed of condition: Yes Advance Directives: Yes DNR: Yes Level of Care: Skilled Communicable Disease: No Prognosis: Stable Retana Catheter: No Instructions / Follow-Up Instructions / Follow-Up FOLLOW UP WITH PHYSICIAN AT [facility] Diet Patient's current hospital diet: Diabetes Type 2 Diet, Low Lactose Diet Discharge Diet Recommended Diet: Diabetes Type 2 Diet, Low Lactose Diet Pending Studies Studies pending at discharge: no Medical Emergencies . Who to Call and When: Medical Emergencies: If at any time you feel your situation is an emergency, please call 911 immediately. . Non-Emergent Contact Non-Emergency issues call your: Primary Care Provider . . "Provider Documentation" section prepared by Candi Abreu. . Core Measure Problem Core Measures: None Additional Copies To Marina Mclaughlin M.D.
[2017-01-30 09:51] VITALS: BP 179/80; PULSE 64; TEMP 36.7; O2SAT 96
[2017-01-31] MEDS ORDERED: SULF800T23 PO (11:32)
== END 2017-01-30 13:03 | DRG 391 ==
LOC: EDBD 17:41 → C.EDB 17:42 → C.2E 20:46 → ENRESERV 21:21 → EDBEDREQ 01-29 17:03 → ENRESERV 01-29 17:23 → C.MS4W 01-29 18:09
PROVIDERS: ADMIT Hospitalist; ATTEND Hospitalist
DX: A08.4 Viral intestinal infection, unspecified (principal); J96.01 Acute respiratory failure with hypoxia; L03.312 Cellulitis of back [any part except buttock and flank]; K86.1 Other chronic pancreatitis; I25.10 Atherosclerotic heart disease of native coronary artery without angina pectoris; E11.9 Type 2 diabetes mellitus without complications; L89.159 Pressure ulcer of sacral region, unspecified stage; E03.9 Hypothyroidism, unspecified; Z95.0 Presence of cardiac pacemaker; Z95.1 Presence of aortocoronary bypass graft; Z79.4 Long term (current) use of insulin; Z88.2 Allergy status to sulfonamides; Z82.49 Family history of ischemic heart disease and other diseases of the circulatory system; I73.9 Peripheral vascular disease, unspecified; Z79.899 Other long term (current) drug therapy; B95.62 Methicillin resistant Staphylococcus aureus infection as the cause of diseases classified elsewhere

== ENCOUNTER 2017-02-18 10:37 | Inpatient (IN) | payer OTHER ==
[~2017-02-18] VITALS: Ht 152.4 cm; Wt 70.3 kg
[~2017-02-18 10:37] MED LIST changes: +ACET325T96 PO; +BCTROWC EXT; +DILT30TA PO; -DOXY100C76 PO; +FENO134C2 PO; -ISOS60TA25 PO; +METO100T44 PO; -METO50TA7 PO; +MORP1CAP PO; +NITR0.1S PO; -NITRSPR6; +OXYC-164 PO; +PREG1CAP36 PO; +ZINC40OI13 TOP
[2017-02-18] MEDS ORDERED: PIPERACILLIN/TAZOBACTAM 4.5 GM/100ML D5W IV STA (11:12)
[2017-02-18] MEDS ORDERED: SODIUM CHLORIDE 0.9% 1000ML 1,000 ML IV STA (11:12)
[2017-02-18 11:25] LABS: BASO % 0.3 %; BASO ABS # 0.04 K/uL (0-0.2); COMPLETE YES; EOS % 2.9 %; HEMATOCRIT 44.2 % (37-47); IG% 0.5 %; LYMPH % 7.3 %; LYMPH ABS # 1.11 K/uL (1.2-3.4); MEAN CELL VOLUME 95.5 fL (80-100); MEAN CORPUSCULAR HEMOGLOBIN 31.3 pg (25-34); MEAN CORPUSCULAR HGB CONC 32.8 g/dl (32-36); MONO % 7.1 %; NEUT % 81.9 %; PLATELET COUNT 546 K/uL (130-400); RED BLOOD COUNT 4.63 M/uL (4.2-5.4); WHITE BLOOD COUNT 15.26 K/uL (4.8-10.8)
[2017-02-18 11:30] LABS: PROTHROMBIN TIME (PATIENT) 10.8 SECONDS (9.0-12.0)
[2017-02-18 11:35] LABS: CREATININE 1.66 mg/dl (0.60-1.20); MAGNESIUM 1.5 mg/dl (1.8-2.4); POTASSIUM 4.8 mmol/L (3.5-5.1)
[2017-02-18] MEDS ORDERED: SODIUM CHLORIDE 0.9% 1000ML 1,000 ML IV ONE (11:39)
[2017-02-18] MEDS ORDERED: INSULIN IV INFUSION PROTOCOL STA (11:39)
[2017-02-18 11:40] LABS: CKMB/CK RATIO 6.2 (0-3.0)
[2017-02-18 11:48] LABS: BETA-HYDROXYBUTYRATE 1.43 mg/dL (0.2-2.81)
[2017-02-18] MEDS ORDERED: GLUCOSE 10 TABS/TUBE PO PRN ×2 (12:15→15:45)
[2017-02-18] MEDS ORDERED: GLUCAGON FOR INJ 1 MG VIAL SQ PRN ×2 (12:15→15:45)
[2017-02-18] MEDS ORDERED: GLUCOSE 40% GEL 15 GM TUBE PO PRN ×2 (12:15→15:45)
[2017-02-18] MEDS ORDERED: DEXTROSE 50% 50 ML SYR IV PRN ×2 (12:15→15:45)
[2017-02-18 12:19] LABS: ISTAT CREATININE 1.3 mg/dl (0.6-1.3); ISTAT IONIZED CALCIUM 1.22 mmol/l (1.12-1.32)
[2017-02-18] MEDS ORDERED: INSULIN REGULAR 250 UNITS in SODIUM CHLORIDE 0.9% 250ML 250 ML IV SCH (12:30)
[2017-02-18] MEDS ORDERED: INSULIN HUMAN REGULAR IV BOLUS 4 UNIT in SYRINGE 0 ML IV SCH (12:30)
[2017-02-18] MEDS ORDERED: MOML PO (12:43)
--- NOTE | 2017-02-18 12:43 | DIAGNOSTIC IMAGING REPORT ---
CHEST ONE VIEW PORTABLE CLINICAL HISTORY: fever COMPARISON STUDY: 01/27/2017 FINDINGS: The cardiac and mediastinal contours remain stable. There are postsurgical changes of a midline sternotomy. There is a right subclavian dual-chamber central venous pacemaker present. There is no lobar consolidation. There is mild chronic interstitial thickening. Bibasilar opacities are likely atelectatic.[ IMPRESSION: Mild cardiomegaly and mild chronic interstitial thickening. Bibasilar opacities, likely atelectatic. Electronically signed by: Jordan Rose M.D. 02/18/2017 12:42 PM Dictated Date/Time: 02/18/2017 12:40 PM
[2017-02-18] MEDS ORDERED: RANO500T PO (12:49)
--- NOTE | 2017-02-18 13:36 | DIAGNOSTIC IMAGING REPORT ---
ABDOMEN AND PELVIS CT WITHOUT CONTRAST CT DOSE: 612.63 mGy.cm HISTORY: Acute generalized abdominal pain abd pain TECHNIQUE: Multiaxial CT images of the abdomen and pelvis were performed without contrast. A dose lowering technique was utilized adhering to the principles of ALARA. COMPARISON STUDY: CT abdomen and pelvis 01/27/2017 FINDINGS: Patchy multifocal consolidative and alveolar opacities of the lung bases, left greater than right. Inferior cardiac chambers are enlarged with pacer leads noted. Coronary arterial disease. No pneumatosis or pneumoperitoneum. Evaluation of the solid abdominal organs is limited without the use of contrast. Prior cholecystectomy. Liver is unremarkable. No intrahepatic biliary ductal dilation. The spleen is absent. Severe diffuse pancreatic atrophy. Mild thickening of the left adrenal gland. The right adrenal gland is unremarkable. Nonspecific bilateral perinephric stranding. Kidneys are otherwise unremarkable. Ureters are unremarkable. Mild wall thickening of the urinary bladder. Prior hysterectomy. No adnexal mass lesions identified. Extensive atherosclerosis of the aorta with diffuse vascular calcifications. Stent of the superior mesenteric artery. No bulky retroperitoneal adenopathy identified. Mildly enlarged right inguinal lymph node, 1.9 x 1.0 cm. No bowel obstruction. Mild rectal wall thickening. Ill-defined soft tissue prominence is noted near the anal sphincter which appears unchanged from prior. Mild colonic diverticulosis without diverticulitis. Prior ventral abdominal wall herniorrhaphy. Heterogeneous partially calcified soft tissue masses are noted within the bilateral proximal thighs and gluteal regions and to lesser extent along the anterior abdominal wall. These appear unchanged from comparison. Prior laminectomy at L4-L5 and L5-S1. Multilevel degenerative changes of the spine. Partially imaged spinal stimulator leads are seen within the soft tissues posterior to the midthoracic spine. IMPRESSION: 1. Patchy multifocal consolidative and groundglass opacities of the lung bases, left greater the right suggests pneumonia. 2. Mild rectal wall thickening with ill-defined soft tissue prominence within the region of the anal sphincter. Correlate with patient history and clinical exam. No bowel obstruction. 3. Mild wall thickening of the urinary bladder may reflect mild cystitis. 4. Prior cholecystectomy and hysterectomy. 5. Unchanged heterogeneous areas of soft tissue and calcification are again seen within the proximal thighs, bilateral gluteal distribution and lower anterior abdominal wall, Some of which are within the subcutaneous fat and other foci likely intramuscular. These findings are likely benign and may reflect injection granulomas. Electronically signed by: Branden Tolentino M.D. 02/18/2017 1:35 PM Dictated Date/Time: 02/18/2017 1:08 PM
[2017-02-18] MEDS ORDERED: ONDANSETRON INJ 2 MG/ML 2 ML VIAL IV PRN (15:00)
[2017-02-18] MEDS ORDERED: ACETAMINOPHEN 325 MG TAB PO PRN (15:00)
[2017-02-18] MEDS ORDERED: CONSULT PHARMACY STA (15:12)
--- NOTE | 2017-02-18 15:12 | EMERGENCY ROOM VISIT NOTE ---
History Report prepared by Scribe: Cata Davila Under the Supervision of: Nasrin DiorO. First contact with patient: 11:00 Chief Complaint: ILLNESS Stated Complaint: ILLNESS History of Present Illness The patient is an 81 year old female who presents to the Emergency Room with complaints of intermittent chest pain that started last night. She was brought to the ED via ALS from [facility], where she resides. She rates her discomfort as a 5/10 in severity. She also complains of shortness of breath. She wears Oxygen at night and as needed. She admits to anxiety because of the upcoming holidays and believes that is causing her chest pain and shortness of breath. She has also been nauseous, vomiting and has had diarrhea for the past 2 weeks. She has not eaten since 1600 yesterday. She complains of abdominal pain that feels similar to her typical pancreatitis pain. She no longer has her gallbladder or appendix. The patient denies any headache, change in vision, fevers, pain with urination, and melena or hematochezia. She is currently taking antibiotics for pneumonia, but is unsure which one. Source of History: patient Onset: last night Position: chest Symptom Intensity: 5/10 Timing: intermittent Associated Symptoms: + SOB, + nausea, + vomiting, + abdominal pain, + diarrhea, No fevers, No headache, No melena, No hematochezia, No urinary symptoms Review of Systems See HPI for pertinent positives & negatives. A total of 10 systems reviewed and were otherwise negative. Past Medical & Surgical Medical Problems: (1) CAD (coronary artery disease) (2) Carotid stenosis (3) Chronic pancreatitis (4) DM2 (diabetes mellitus, type 2) (5) Hypothyroidism (6) Hypoxemia (7) Pacemaker (8) Sepsis (9) SSS (sick sinus syndrome) (10) Valvular disease Surgical Problems: (1) H/O splenectomy (2) H/O: hysterectomy (3) History of appendectomy (4) History of back surgery (5) History of pancreatic surgery (6) History of partial colectomy (7) Hx of CABG (8) S/P cholecystectomy Family History Patient reports no known family medical history. Social History Smoking Status: Unknown if Ever Smoked Drug Use: none Marital Status: Housing Status: residential Occupation Status: retired Current/Historical Medications Scheduled Aspirin (Aspirin 81), 162 MG PO QAM Cholecalciferol (Vitamin D), 2,000 UNITS PO DAILY Clopidogrel Bisulfate (Plavix), 75 MG PO DAILY Diltiazem Hcl (Cardizem), 30 MG PO TID Duloxetine Hcl (Cymbalta), 60 MG PO DAILY Fenofibrate (Tricor ), 134 MG PO DAILYBB Furosemide (Lasix), 40 MG PO DAILY Home O2 Therapy (Oxygen), 2 LITERS NA PRN Insulin Isophane & Reg (Human) (Novolin 70/30 Relion), 64 UNIT(INT) SC QDB Insulin Isophane & Reg (Human) (Novolin 70/30 Relion), 50 UNITS SC QPM Isosorbide Mononitrate Ext Rel (Imdur Ext Rel), 120 MG PO QAM Levothyroxine Sodium (Levothyroxine Sodium), 100 MCG PO QAM Lisinopril (Zestril), 5 MG PO DAILY Metoprolol Succ (Toprol Xl) (Toprol-Xl ), 100 MG PO BID Morphine Sulfate (Morphine Sulfate Er), 60 MG PO BID Morphine Sulfate (Ayesha), 10 MG PO QAM Polyethylene Glycol 3350 (Miralax), 1 DOSE PO DAILY Pregabalin (Lyrica), 25 MG PO BID Ranitidine (Zantac), 150 MG PO BID Ranolazine (Ranexa), 500 MG PO BID Senna/Docusate Sod (Senokot S), 4 TAB PO BID Zinc Oxide (Topical) (Desitin), 1 APPLN TOP DAILY Scheduled PRN Acetaminophen Tab (Tylenol), 650 MG PO Q4 PRN for Pain Lorazepam (Ativan), 0.5 MG PO TID PRN Magnesium Hydroxide (Milk Of Magnesia), 30 ML PO DAILY PRN for Constipation Nitroglycerin (Nitroglycerin Lingual), 1 SPRAY PO Q5M PRN for Pain Ondansetron Hcl (Zofran), 4 MG PO DAILY PRN for Nausea Oxycodone Hcl (Oxycodone Hcl), 10 MG PO Q4H PRN for Pain Allergies Coded Allergies: Amitriptyline (Verified Allergy, Severe, 02/18/17) Codeine (Verified Allergy, Severe, 02/18/17) Cortisone (Verified Allergy, Severe, 02/18/17) Fluconazole (Verified Allergy, Severe, 02/18/17) Iodine (Verified Allergy, Severe, 02/18/17) Pentazocine (Verified Allergy, Severe, SHORTNESS OF BREATH, 02/18/17) Tromethamine (Verified Allergy, Severe, 02/18/17) Gabapentin (Verified Allergy, Mild, 02/18/17) Diflunisal (Verified Allergy, Unknown, unknown, 02/18/17) dayspring Ketorolac (Verified Allergy, Unknown, 02/18/17) Naloxone (Verified Allergy, Unknown, unknown, 02/18/17) dayspring Prochlorperazine (Verified Allergy, Unknown, 02/18/17) Sulfa Antibiotics (Verified Allergy, Unknown, EXTREMELY ITCHY, 02/18/17) Tetracycline (Verified Allergy, Unknown, unk, 02/18/17) gmg Phenothiazines (Verified Adverse Reaction, Intermediate, ANXIOUS, 02/18/17 ) Promethazine (Verified Adverse Reaction, Intermediate, ANXIOUS WITH DOSE ON 01/13/10, 02/18/17) Amlodipine (Verified Adverse Reaction, Unknown, weakness, 02/18/17) gmg Diazepam (Verified Adverse Reaction, Unknown, agitation, 02/18/17) gmg Physical Exam Vital Signs Date Time Temp Pulse Resp B/P (MAP) Pulse Ox O2 Delivery O2 Flow Rate FiO2 02/18/17 14:00 92 119/78 93 Room Air 02/18/17 13:25 90 02/18/17 12:42 99 20 92 02/18/17 12:31 164/122 02/18/17 12:12 96 19 93 02/18/17 12:07 81 20 88 02/18/17 11:43 136/74 02/18/17 11:07 106 19 95 02/18/17 11:02 96 Nasal Cannula 2.0 02/18/17 11:01 96 Nasal Cannula 2.0 02/18/17 10:57 104 02/18/17 10:48 37.9 103 20 139/64 93 Room Air 02/18/17 10:45 149/82 Physical Exam GENERAL: Sitting up in bed, slightly ill appearing, non-toxic, in no acute distress EYE EXAM: normal conjunctiva. PERRL and EOM's grossly intact. OROPHARYNX: no exudate, no erythema, lips, buccal mucosa, and tongue normal and mucous membranes are moist NECK: supple, no nuchal rigidity, no adenopathy, non-tender LUNGS: Rhonchi at the bilateral bases. Normal chest wall mechanics HEART: Tachycardic heart rate, no murmurs, S1 normal and S2 normal BACK: Multiple old midline incisions ABDOMEN: abdomen soft, minimal tenderness in the left lower quadrant, normo- active bowel sounds, no masses, no rebound or guarding. BACK: Back is symmetrical on inspection and there is no deformity, no midline tenderness, no CVA tenderness. SKIN: no rashes and no bruising UPPER EXTREMITIES: upper extremities are grossly normal. LOWER EXTREMITIES: No pitting edema. NEURO EXAM: Normal sensorium, cranial nerves II-XII grossly intact, normal speech, no gross weakness of arms, no gross weakness of legs. Gross sensation intact. Medical Decision & Procedures ER Provider Diagnostic Interpretation: Radiology results as stated below per my review and the radiologist's interpretation: ABDOMEN AND PELVIS CT WITHOUT CONTRAST CT DOSE: 612.63 mGy.cm HISTORY: Acute generalized abdominal pain abd pain TECHNIQUE: Multiaxial CT images of the abdomen and pelvis were performed without contrast. A dose lowering technique was utilized adhering to the principles of ALARA. COMPARISON STUDY: CT abdomen and pelvis 01/27/2017 FINDINGS: Patchy multifocal consolidative and alveolar opacities of the lung bases, left greater than right. Inferior cardiac chambers are enlarged with pacer leads noted. Coronary arterial disease. No pneumatosis or pneumoperitoneum. Evaluation of the solid abdominal organs is limited without the use of contrast. Prior cholecystectomy. Liver is unremarkable. No intrahepatic biliary ductal dilation. The spleen is absent. Severe diffuse pancreatic atrophy. Mild thickening of the left adrenal gland. The right adrenal gland is unremarkable. Nonspecific bilateral perinephric stranding. Kidneys are otherwise unremarkable. Ureters are unremarkable. Mild wall thickening of the urinary bladder. Prior hysterectomy. No adnexal mass lesions identified. Extensive atherosclerosis of the aorta with diffuse vascular calcifications. Stent of the superior mesenteric artery. No bulky retroperitoneal adenopathy identified. Mildly enlarged right inguinal lymph node, 1.9 x 1.0 cm. No bowel obstruction. Mild rectal wall thickening. Ill-defined soft tissue prominence is noted near the anal sphincter which appears unchanged from prior. Mild colonic diverticulosis without diverticulitis. Prior ventral abdominal wall herniorrhaphy. Heterogeneous partially calcified soft tissue masses are noted within the bilateral proximal thighs and gluteal regions and to lesser extent along the anterior abdominal wall. These appear unchanged from comparison. Prior laminectomy at L4-L5 and L5-S1. Multilevel degenerative changes of the spine. Partially imaged spinal stimulator leads are seen within the soft tissues posterior to the midthoracic spine. IMPRESSION: 1. Patchy multifocal consolidative and groundglass opacities of the lung bases, left greater the right suggests pneumonia. 2. Mild rectal wall thickening with ill-defined soft tissue prominence within the region of the anal sphincter. Correlate with patient history and clinical exam. No bowel obstruction. 3. Mild wall thickening of the urinary bladder may reflect mild cystitis. 4. Prior cholecystectomy and hysterectomy. 5. Unchanged heterogeneous areas of soft tissue and calcification are again seen within the proximal thighs, bilateral gluteal distribution and lower anterior abdominal wall, Some of which are within the subcutaneous fat and other foci likely intramuscular. These findings are likely benign and may reflect injection granulomas. Electronically signed by: Branden Tolentino M.D. 02/18/2017 1:35 PM CHEST ONE VIEW PORTABLE CLINICAL HISTORY: fever COMPARISON STUDY: 01/27/2017 FINDINGS: The cardiac and mediastinal contours remain stable. There are postsurgical changes of a midline sternotomy. There is a right subclavian dual-chamber central venous pacemaker present. There is no lobar consolidation. There is mild chronic interstitial thickening. Bibasilar opacities are likely atelectatic. IMPRESSION: Mild cardiomegaly and mild chronic interstitial thickening. Bibasilar opacities, likely atelectatic. Electronically signed by: Jordan Rose M.D. 02/18/2017 12:42 PM Laboratory Results 02/18/17 10:50 Red Blood Count 4.63, Mean Corpuscular Volume 95.5, Mean Corpuscular Hemoglobin 31.3, Mean Corpuscular Hemoglobin Concent 32.8, Mean Platelet Volume 10.0, Neutrophils (%) (Auto) 81.9, Lymphocytes (%) (Auto) 7.3, Monocytes (%) (Auto) 7.1, Eosinophils (%) (Auto) 2.9, Basophils (%) (Auto) 0.3, Neutrophils # (Auto) 12.51, Lymphocytes # (Auto) 1.11, Monocytes # (Auto) 1.09, Eosinophils # (Auto) 0.44, Basophils # (Auto) 0.04 02/18/17 10:50 Test 02/18/17 10:50 02/18/17 11:11 02/18/17 12:02 02/18/17 12:06 White Blood Count 15.26 K/uL (4.8-10.8) Red Blood Count 4.63 M/uL (4.2-5.4) Hemoglobin 14.5 g/dL (12.0-16.0) Hematocrit 44.2 % (37-47) Mean Corpuscular Volume 95.5 fL (80-100) Mean Corpuscular Hemoglobin 31.3 pg (25-34) Mean Corpuscular Hemoglobin Concent 32.8 g/dl (32-36) Platelet Count 546 K/uL (130-400) Mean Platelet Volume 10.0 fL (7.4-10.4) Neutrophils (%) (Auto) 81.9 % Lymphocytes (%) (Auto) 7.3 % Monocytes (%) (Auto) 7.1 % Eosinophils (%) (Auto) 2.9 % Basophils (%) (Auto) 0.3 % Neutrophils # (Auto) 12.51 K/uL (1.4-6.5) Lymphocytes # (Auto) 1.11 K/uL (1.2-3.4) Monocytes # (Auto) 1.09 K/uL (0.11-0.59) Eosinophils # (Auto) 0.44 K/uL (0-0.5) Basophils # (Auto) 0.04 K/uL (0-0.2) RDW Standard Deviation 54.7 fL (36.4-46.3) RDW Coefficient of Variation 15.8 % (11.5-14.5) Immature Granulocyte % (Auto) 0.5 % Immature Granulocyte # (Auto) 0.07 K/uL (0.00-0.02) Prothrombin Time 10.8 SECONDS (9.0-12.0) Prothromb Time International Ratio 1.0 (0.9-1.1) Est Creatinine Clear Calc Drug Dose 20.4 ml/min Estimated GFR () 32.9 Estimated GFR (Non- 28.4 BUN/Creatinine Ratio 28.0 (10-20) Calcium Level 9.0 mg/dl (8.5-10.1) Magnesium Level 1.5 mg/dl (1.8-2.4) Total Bilirubin 0.4 mg/dl (0.2-1) Direct Bilirubin 0.2 mg/dl (0-0.2) Aspartate Amino Transf (AST/SGOT) 16 U/L (15-37) Alanine Aminotransferase (ALT/SGPT) 12 U/L (12-78) Alkaline Phosphatase 86 U/L (45-117) Total Creatine Kinase 61 U/L (26-192) Creatine Kinase MB 3.8 ng/ml (0.5-3.6) Creatine Kinase MB Ratio 6.2 (0-3.0) Troponin I 0.285 ng/ml (0-0.045) Total Protein 8.2 gm/dl (6.4-8.2) Albumin 2.7 gm/dl (3.4-5.0) Beta-Hydroxybutyric Acid 1.43 mg/dL (0.2-2.81) Bedside Lactic Acid Venous 2.09 mmol/L (0.90-1.70) Bedside Hemoglobin 15.0 g/dl (12.0-16.0) Bedside Hematocrit 44 % (37-47) Bedside Sodium 137 mEq/L (135-144) Bedside Potassium 4.5 mEq/L (3.3-5.0) Bedside Chloride 103 mEq/L (101-112) Bedside Total CO2 22 mEq/l (24-31) Anion Gap 18.0 mmol/L (16-25) Bedside Blood Urea Nitrogen 42 mg/dl (7-18) Bedside Creatinine 1.3 mg/dl (0.6-1.3) Bedside Glucose (other) 355 mg/dl (70-99) Bedside Ionized Calcium (Juli) 1.22 mmol/l (1.12-1.32) Test 02/18/17 14:00 02/18/17 14:35 Bedside Glucose 279 mg/dl (70-90) Laboratory results per my review. Medications Administered Medications (Trade) Dose Ordered Sig/Robert Route Start Time Stop Time Status Last Admin Dose Admin Sodium Chloride 1,000 ml @ 999 mls/hr Q1H1M STAT IV 02/18/17 11:12 02/18/17 12:12 DC 02/18/17 11:12 999 MLS/HR Piperacillin Sod/ Tazobactam Sod (Zosyn Iv) 4.5 gm NOW STAT IV 02/18/17 11:12 02/18/17 11:13 DC 02/18/17 11:12 4.5 GM Sodium Chloride 1,000 ml @ 0 mls/hr Q0M ONCE IV 02/18/17 11:39 02/18/17 11:41 DC 02/18/17 11:39 200 MLS/HR ECG Indication: chest pain Rhythm: other (ventricular paced) Findings: left axis deviation ED Course ED COURSE: Vital signs were reviewed and showed the patient is febrile, hypertensive and tachycardic. The patients medical record was reviewed The above diagnostic studies were performed and reviewed. ED treatments and interventions as stated above. 1105: The patient was evaluated in room C9. A complete history and physical examination was performed. 1112: Zosyn 4.5 gm IV, NSS 1000 ml @ 999 mls/hr IV. 1139: NSS 1000 ml @ 0 mls/hr IV. 1215: Dextrose 50% of 50 ml Syringe IV, Glucose 4-8 tablets PO, Glucose 15-30 g PO. 1230: Insulin Human Regular 250 units/NSS 252.2 ml @ 0 mls/hr IV, Insulin Human Regular 4 ml @ 1 mls/min IV. 1354: I discussed the patients case with Lauren Myers PA-C, [facility] Hospitalist. The patient will be further evaluated. 1400: Upon reevaluation, the patient is resting comfortably. I discussed my findings with the patient and she understands and agrees with the treatment plan. Based on the patients age, coexisting illnesses, exam and lab findings the decision to treat as an inpatient was made. The patient remained stable while under my care. The patient will be evaluated for further management. Medical Decision Differential diagnosis includes etiologies such as sepsis, UTI, pneumonia, metabolic, electrolyte abnormalities, cardiac sources, intracerebral event, toxicologic, neurologic, as well as others were entertained. Patient is an 81-year-old female who presents to ER for this pain associated with shortness of breath along with nausea vomiting diarrhea. She notes that this feels like her pancreatitis. On exam she is febrile and tachycardic. Chest x-ray supports a pneumonia which confirmed by CT abdomen and pelvis. Labs show a leukocytosis of 15,000. PA she was elevated at 453. Trended down to 280. Sodium slightly low at 130. Troponin was elevated at 0.285. EKG was paced. Patient was given broad-spectrum antibiotics. She is monitored closely with her elevated troponin, tachycardia and fever. Patient was admitted to internal medicine with sepsis secondary to pneumonia. Medication Reconcilliation Current Medication List: was personally reviewed by me Blood Pressure Screening Patient's blood pressure: Elevated blood pressure Blood pressure disposition: Referred to PCP Consults Time Called: 1350 Consulting Physician: Lauren Myers PA-C, [facility] Hospitalist Returned Call: [phone] I discussed the patients case with Lauren Myers PA-C, [facility]. The patient will be further evaluated. Impression Primary Impression: Sepsis Additional Impression: Pneumonia Scribe Attestation The scribe's documentation has been prepared under my direction and personally reviewed by me in its entirety. I confirm that the note above accurately reflects all work, treatment, procedures, and medical decision making performed by me. Departure Information Dispostion Being Evaluated By Hospitalist Marina Pascal M.D. (PCP) Patient Instructions My [facility] Problem Qualifiers Primary Impression: Sepsis Sepsis type: sepsis due to unspecified organism Qualified Codes: A41.9 - Sepsis, unspecified organism Additional Impression: Pneumonia Pneumonia type: due to unspecified organism Laterality: unspecified laterality Lung location: unspecified part of lung Qualified Codes: J18.9 - Pneumonia, unspecified organism
[2017-02-18] MEDS ORDERED: VANCOMYCIN CONSULT ACTIVE PRN (15:30)
[2017-02-18] MEDS ORDERED: GLGKIT (15:30)
[2017-02-18] MEDS ORDERED: DEXT40GE20 (15:30)
[2017-02-18] MEDS ORDERED: PIPERACILL/TAZOBAC CONSULT ACTIVE PRN (15:30)
[2017-02-18] MEDS ORDERED: LACTCHW3 PO (15:30)
[2017-02-18] MEDS ORDERED: LEVO100T7 PO (15:30)
[2017-02-18] MEDS ORDERED: IMD/2 PO (15:30)
[2017-02-18 15:57] LABS: INFLUENZA A PCR Neg for Influ A (NEG); INFLUENZA B PCR Neg for Influ B (NEG)
[2017-02-18] MEDS ORDERED: OXYCODONE HCL IR 5 MG TAB (IMMEDIATE RELEASE) PO PRN (16:00)
[2017-02-18] MEDS ORDERED: PHARMACY GLYCEMIC MGMT CONSULT PRN (16:12)
[2017-02-18] MEDS ORDERED: VANCOMYCIN INJ 1,500 MG in SODIUM CHLORIDE 0.9% 500ML 500 ML IV ONE (16:30)
--- NOTE | 2017-02-18 16:42 | Pharmacy Progress Note ---
Pharmacy Abx Dose Short Note Date of Service Feb 18, 2017. Assessment & Plan Assessment 81 year old female - [facility] - recent hospital admission - recent antibiotics for MRSA cellulitis Ordered empiric vanc + zosyn IV for treatment of sepsis, pneumonia. Cefepime will be utilized in place of zosyn. Plan Vancomycin * Loading dose: 1500 mg (27 mg/kg) * Maintenance dose: 1000 mg IV q24h * Dosing based on the assumption that renal function will continue to improve over the next 24 hours (1.66 -> 1.3, baseline ~1.0 mg/dl). Clinical Pharmacist will adjust dose if this is not the case. * Goal trough level for sepsis/pnx : 15 to 20 mcg/mL * Trough level ordered for: 02/21/17 Cefepime * 2g IV every 24 hours for crcl 11-29 ml/min Pharmacy will continue to follow and will adjust dose/frequency as necessary. Thank you.
[2017-02-18] MEDS ORDERED: INSULIN GLARGINE SOLOSTAR 100 UNITS/ML 3 ML PEN SC ONE (16:45)
--- NOTE | 2017-02-18 16:50 | Pharmacy Progress Note ---
Glycemic Control Intl Consult Date of Service Feb 18, 2017. Scope Glycemic Pharmacist consulted by ALEXANDER Valdez on 02/18/17 for glycemic control and to write orders per [facility] inpatient glycemic control protocol Objective Weight (Kilograms): 55.300 Accuchecks BSG (last 24hrs): Test 02/18/17 10:50 02/18/17 12:37 02/18/17 13:16 02/18/17 14:00 Random Glucose 453 mg/dl (70-99) Bedside Glucose 287 mg/dl (70-90) 286 mg/dl (70-90) 279 mg/dl (70-90) Laboratory Data (last 24hrs) Test 02/18/17 10:50 02/18/17 12:06 Anion Gap 8.0 mmol/L 18.0 mmol/L BUN/Creatinine Ratio 28.0 Blood Urea Nitrogen 46 mg/dl Creatinine 1.66 mg/dl Potassium Level 4.8 mmol/L Sodium Level 130 mmol/L White Blood Count 15.26 K/uL Red Blood Count 4.63 M/uL Hemoglobin 14.5 g/dL Hematocrit 44.2 % Mean Corpuscular Volume 95.5 fL Mean Corpuscular Hemoglobin 31.3 pg Mean Corpuscular Hemoglobin Concent 32.8 g/dl Platelet Count 546 K/uL Mean Platelet Volume 10.0 fL Neutrophils (%) (Auto) 81.9 % Lymphocytes (%) (Auto) 7.3 % Monocytes (%) (Auto) 7.1 % Eosinophils (%) (Auto) 2.9 % Basophils (%) (Auto) 0.3 % Neutrophils # (Auto) 12.51 K/uL Lymphocytes # (Auto) 1.11 K/uL Monocytes # (Auto) 1.09 K/uL Eosinophils # (Auto) 0.44 K/uL Basophils # (Auto) 0.04 K/uL Recent Pertinent Medications Outpatient Anti-diabetic Regimen: * Novolin 70/30 60 u QAM + 46 u QPM - per med red - not verified with patient * A1c = 8.3 % 11/2015 Assessment & Plan ASSESSMENT: * 81 yo diabetic female known to glycemic service from prior admission, presenting today with BSGs ~500 mg/dL * Plan per ER pharmacist was to start drip but BSGs responded to fluid therapy only, came down to upper 200's and drip was never started * Now patient admitted to the floor and will initiated SQ basal bolus regimen * Note - pt's wt has changed significantly since past admission and pt has JOSÉ MIGUEL PLAN FOR INPATIENT GLYCEMIC CONTROL: * Hold outpatient regimen * Mixed insulins not used inpatient due to hypo risk * Basal insulin with LANTUS 30 units SQ X 1 * Place order for 20 units daily starting tomorrow AM - subject to change based on BSG trend * Correctional Insulin with NOVOLOG per scale ACHS or Q6hrs while NPO * Goal Range: Low 110 mg/dL - High 150 mg/dL * Correction Factor: 30 mg/dL/unit * Nutritional / Prandial insulin per carb ratio of 1 unit per 10 grams CHO consumed * New A1c ordered * Please note that the plan above was derived based on current level of insulin resistance and hospital stress. These recommendations are appropriate for inpatient admission only. Plan of care upon discharge will need to be reassessed to avoid potential outpatient hypo/hyperglycemia. Thank you.
[2017-02-18] MEDS ORDERED: CEFEPIME CONSULT ACTIVE PRN ×2 (17:00)
[2017-02-18] MEDS: SODIUM CHLORIDE 0.9% 1000ML 1,000 ML IV SCH (17:13)
[2017-02-18] MEDS: INSULIN ASPART 100 UNITS/ML 3 ML PEN SC SCH ×2 (17:17→21:08)
[2017-02-18] MEDS: CEFEPIME IV 2,000 MG in SYRINGE 7.5 ML IV SCH (17:33)
[2017-02-18 18:00] VITALS: BP 145/77; PULSE 89; TEMP 36.9; O2SAT 92; Ht 152.4 cm; Wt 70.3 kg
[2017-02-18] MEDS ORDERED: CEFEPIME IV 2,000 MG in SYRINGE 7.5 ML IV SCH (18:00)
[2017-02-18 19:36] VITALS: BP 162/82; PULSE 79; TEMP 37.3; O2SAT 99
[2017-02-18] MEDS ORDERED: ATORVASTATIN 40 MG TAB PO SCH (19:45)
--- NOTE | 2017-02-18 19:45 | History and Physical ---
History & Physical Date & Time of Service: Feb 18, 2017 ~ 14:30 Chief Complaint: Fever, Altered Mental Status Primary Care Physician: Marina Mclaughlin M.D. History of Present Illness 81 year old female who was sent to the ED from [facility] for evaluation of fever and altered mental status. Patient was recently admitted to [facility] 01/27 - 01/30 for nausea, vomiting, and diarrhea that was felt to be due to viral gastroenteritis. Patient also had a sacral wound that was cultured and grew MRSA. Patient was treated with Bactrim for 7 days. This morning at the intermediate, patient had increasing confusion and had a fever of 103 with chills and rigors. Patient was then transferred to the ED for further evaluation. At the time of my exam, patient is lethargic at times and I would consider her a poor historian, she is unable to give details about her illness today. She reports that she woke up feeling "rotten". She reports a cough without sputum production. She reports intermittent episodes of left sided chest pain that she describes as pressure. She reports it came and resolved quickly. She is unable to give any further details regarding associated symptoms. She has had diarrhea for 2 days. She describes it as watery. She denies abdominal pain, nausea, or vomiting. No urinary symptoms. In the ED, patient had a low grade fever and mild tachycardia. WBC is 15K. Glucose os 453 which improved with IVF administration. CT abd/pelvis was obtained which was negative for acute abdominal findings however did show patchy multifocal consolidative and groundglass opacities of the lung bases, left greater the right suggests pneumonia. Initial troponin was 0.285 and EKG demonstrated a paced rhythm. Patient was given IVF and IV Zosyn. Past Medical/Surgical History Medical Problems: (1) CAD (coronary artery disease) Permanent Comment: 05/2006 - inferior wall PA; cath at that time - demonstrated multivessel CAD with a 100% circumflex stenosis, 90% RCA stenosis, 50% left main stenosis, and a 50% LAD stenosis. Status post CABG, receiving a DARLING to the LAD and SVG to the diagonal. Status: Chronic (2) Carotid stenosis Permanent Comment: 04/2016 US - Right carotid artery duplex examination indicates evidence of <50% stenosis of the internal carotid artery. Left carotid artery duplex examination indicates evidence of 50-69% stenosis of the internal carotid artery Status: Chronic (3) Chronic pancreatitis Status: Chronic (4) DM2 (diabetes mellitus, type 2) Status: Chronic (5) Hypothyroidism Status: Chronic (6) Pacemaker Status: Chronic (7) SMA stenosis Permanent Comment: SMA stent on 07/24/12 Status: Chronic (8) SSS (sick sinus syndrome) Status: Chronic (9) Systolic and diastolic CHF, chronic Permanent Comment: echo 11/2015 - EF 45-50%, grade II diastolic dysfunction Status: Chronic (10) TIA (transient ischemic attack) Status: Chronic (11) Valvular disease Permanent Comment: right SFA, popliteal, and AT balloon angioplasty on 03/10/16 Status: Chronic Surgical Problems: (1) H/O splenectomy Status: Chronic (2) H/O: hysterectomy Status: Chronic (3) History of appendectomy Status: Chronic (4) History of back surgery Status: Chronic (5) History of pancreatic surgery Status: Chronic (6) History of partial colectomy Status: Chronic (7) Hx of CABG Status: Chronic (8) S/P cholecystectomy Status: Chronic Family History non contributory due to patient's age Social History Smoking Status: Never Smoker Alcohol Use: none Housing status: intermediate Immunizations History of Influenza Vaccine: Yes Influenza Vaccine Date: Sep 29, 2016 Multi-Drug Resistant Organisms History of MDRO: Yes Type of MDRO: MRSA Allergies Coded Allergies: Amitriptyline (Verified Allergy, Severe, 02/18/17) Codeine (Verified Allergy, Severe, 02/18/17) Cortisone (Verified Allergy, Severe, 02/18/17) Fluconazole (Verified Allergy, Severe, 02/18/17) Iodine (Verified Allergy, Severe, 02/18/17) Pentazocine (Verified Allergy, Severe, SHORTNESS OF BREATH, 02/18/17) Tromethamine (Verified Allergy, Severe, 02/18/17) Gabapentin (Verified Allergy, Mild, 02/18/17) Diflunisal (Verified Allergy, Unknown, unknown, 02/18/17) dayspring Ketorolac (Verified Allergy, Unknown, 02/18/17) Naloxone (Verified Allergy, Unknown, unknown, 02/18/17) dayspring Prochlorperazine (Verified Allergy, Unknown, 02/18/17) Sulfa Antibiotics (Verified Allergy, Unknown, EXTREMELY ITCHY, 02/18/17) Tetracycline (Verified Allergy, Unknown, unk, 02/18/17) gmg Phenothiazines (Verified Adverse Reaction, Intermediate, ANXIOUS, 02/18/17 ) Promethazine (Verified Adverse Reaction, Intermediate, ANXIOUS WITH DOSE ON 01/13/10, 02/18/17) Amlodipine (Verified Adverse Reaction, Unknown, weakness, 02/18/17) gmg Diazepam (Verified Adverse Reaction, Unknown, agitation, 02/18/17) gmg Home Medications Scheduled Aspirin (Aspirin 81), 162 MG PO QAM Cholecalciferol (Vitamin D), 2,000 UNITS PO DAILY Clopidogrel Bisulfate (Plavix), 75 MG PO DAILY Diltiazem Hcl (Cardizem), 30 MG PO TID Duloxetine Hcl (Cymbalta), 60 MG PO DAILY Fenofibrate (Tricor ), 134 MG PO DAILYBB Furosemide (Lasix), 40 MG PO DAILY Home O2 Therapy (Oxygen), 2 LITERS NA PRN Insulin Isophane & Reg (Human) (Novolin 70/30 Relion), 60 UNIT(INT) SC QDB Insulin Isophane & Reg (Human) (Novolin 70/30 Relion), 46 UNITS SC QPM Isosorbide Mononitrate Ext Rel (Imdur Ext Rel), 120 MG PO QAM Lactobacillus (Lactinex), 1 TAB PO BID Levothyroxine Sodium (Levothyroxine Sodium), 1 TAB PO DAILY Lisinopril (Zestril), 5 MG PO DAILY Metoprolol Succ (Toprol Xl) (Toprol-Xl ), 100 MG PO BID Morphine Sulfate (Morphine Sulfate Er), 60 MG PO BID Morphine Sulfate (Ayesha), 10 MG PO QAM Polyethylene Glycol 3350 (Miralax), 1 DOSE PO DAILY Pregabalin (Lyrica), 25 MG PO BID Ranitidine (Zantac), 150 MG PO BID Ranolazine (Ranexa), 500 MG PO BID Senna/Docusate Sod (Senokot S), 4 TAB PO BID Zinc Oxide (Topical) (Desitin), 1 APPLN TOP DAILY Scheduled PRN Acetaminophen Tab (Tylenol), 650 MG PO Q4 PRN for Pain Loperamide Hcl (Imodium), 2 MG PO BID PRN for Diarrhea Lorazepam (Ativan), 0.5 MG PO TID PRN Nitroglycerin (Nitroglycerin Lingual), 1 SPRAY PO Q5M PRN for Pain Ondansetron Hcl (Zofran), 4 MG PO DAILY PRN for Nausea Oxycodone Hcl (Oxycodone Hcl), 10 MG PO Q4H PRN for Pain Miscellaneous Medications Dextrose (Diabetic Use) (Glucose) Glucagon (Glucagon Emergency Kit) Review of Systems 10 point ROS completed with patient however I would consider her a poor historian Physical Exam Vital Signs Date Time Temp Pulse Resp B/P (MAP) Pulse Ox O2 Delivery O2 Flow Rate FiO2 02/18/17 15:54 88 122/60 95 02/18/17 14:00 92 119/78 93 Room Air 02/18/17 13:25 90 02/18/17 12:42 99 20 92 02/18/17 12:31 164/122 02/18/17 12:12 96 19 93 02/18/17 12:07 81 20 88 02/18/17 11:43 136/74 02/18/17 11:07 106 19 95 02/18/17 11:02 96 Nasal Cannula 2.0 02/18/17 11:01 96 Nasal Cannula 2.0 02/18/17 10:57 104 02/18/17 10:48 37.9 103 20 139/64 93 Room Air 02/18/17 10:45 149/82 General Appearance: WD/WN, no apparent distress Head: normocephalic, atraumatic Eyes: normal inspection, EOMI, sclerae normal ENT: hearing grossly normal, + pertinent finding (mucous membranes dry) Neck: supple, no JVD, trachea midline Respiratory/Chest: no respiratory distress, + decreased breath sounds Cardiovascular: no edema, normal peripheral pulses, + tachycardia (HR in the 90s, regular rhythm) Abdomen/GI: normal bowel sounds, non tender, soft, no organomegaly Extremities/Musculoskelatal: normal inspection, no calf tenderness, normal capillary refill Neurologic/Psych: oriented x 3, + pertinent finding (patient arouses to verbal stimuli easily however falls asleep quickly during exam, answers questions appropriately at times) Skin: + pertinent finding (sacral decubitus ulcer noted with surrounding redness that is blanchable, no significant drainage; small ulcer noted to the plantar surface of the right foot that is healing well without drainage or surrounding redness) Diagnostics Laboratory Results Results Past 24 Hours Test 12/21/17 10:50 02/18/17 11:11 02/18/17 12:02 02/18/17 12:06 Range/Units White Blood Count 15.26 4.8-10.8 K/uL Red Blood Count 4.63 4.2-5.4 M/uL Hemoglobin 14.5 12.0-16.0 g/dL Hematocrit 44.2 37-47 % Mean Corpuscular Volume 95.5 80-100 fL Mean Corpuscular Hemoglobin 31.3 25-34 pg Mean Corpuscular Hemoglobin Concent 32.8 32-36 g/dl Platelet Count 546 130-400 K/uL Mean Platelet Volume 10.0 7.4-10.4 fL Neutrophils (%) (Auto) 81.9 % Lymphocytes (%) (Auto) 7.3 % Monocytes (%) (Auto) 7.1 % Eosinophils (%) (Auto) 2.9 % Basophils (%) (Auto) 0.3 % Neutrophils # (Auto) 12.51 1.4-6.5 K/uL Lymphocytes # (Auto) 1.11 1.2-3.4 K/uL Monocytes # (Auto) 1.09 0.11-0.59 K/uL Eosinophils # (Auto) 0.44 0-0.5 K/uL Basophils # (Auto) 0.04 0-0.2 K/uL RDW Standard Deviation 54.7 36.4-46.3 fL RDW Coefficient of Variation 15.8 11.5-14.5 % Immature Granulocyte % (Auto) 0.5 % Immature Granulocyte # (Auto) 0.07 0.00-0.02 K/uL Prothrombin Time 10.8 9.0-12.0 SECONDS Prothromb Time International Ratio 1.0 0.9-1.1 Sodium Level 130 136-145 mmol/L Potassium Level 4.8 3.5-5.1 mmol/L Chloride Level 97 98-107 mmol/L Carbon Dioxide Level 25 21-32 mmol/L Anion Gap 8.0 18.0 16-25 mmol/L Blood Urea Nitrogen 46 7-18 mg/dl Creatinine 1.66 0.60-1.20 mg/dl Est Creatinine Clear Calc Drug Dose 20.4 ml/min Estimated GFR () 32.9 Estimated GFR (Non- 28.4 BUN/Creatinine Ratio 28.0 10-20 Random Glucose 453 70-99 mg/dl Calcium Level 9.0 8.5-10.1 mg/dl Magnesium Level 1.5 1.8-2.4 mg/dl Total Bilirubin 0.4 0.2-1 mg/dl Direct Bilirubin 0.2 0-0.2 mg/dl Aspartate Amino Transf (AST/SGOT) 16 15-37 U/L Alanine Aminotransferase (ALT/SGPT) 12 12-78 U/L Alkaline Phosphatase 86 45-117 U/L Total Creatine Kinase 61 26-192 U/L Creatine Kinase MB 3.8 0.5-3.6 ng/ml Creatine Kinase MB Ratio 6.2 0-3.0 Troponin I 0.285 0-0.045 ng/ml Total Protein 8.2 6.4-8.2 gm/dl Albumin 2.7 3.4-5.0 gm/dl Beta-Hydroxybutyric Acid 1.43 0.2-2.81 mg/dL Bedside Lactic Acid Venous 2.09 0.90-1.70 mmol/L Bedside Hemoglobin 15.0 12.0-16.0 g/dl Bedside Hematocrit 44 37-47 % Bedside Sodium 137 135-144 mEq/L Bedside Potassium 4.5 3.3-5.0 mEq/L Bedside Chloride 103 101-112 mEq/L Bedside Total CO2 22 24-31 mEq/l Bedside Blood Urea Nitrogen 42 7-18 mg/dl Bedside Creatinine 1.3 0.6-1.3 mg/dl Bedside Glucose (other) 355 70-99 mg/dl Bedside Ionized Calcium (Juli) 1.22 1.12-1.32 mmol/l Test 02/18/17 12:37 02/18/17 13:16 02/18/17 14:00 02/18/17 14:35 Range/Units Bedside Glucose 287 286 279 70-90 mg/dl Influenza Type A (RT-PCR) Neg for Influ A NEG Influenza Type B (RT-PCR) Neg for Influ B NEG Test 02/18/17 15:56 02/18/17 16:46 02/18/17 17:31 Range/Units Lactic Acid Level 1.4 0.4-2.0 mmol/L Creatine Kinase MB 10.4 0.5-3.6 ng/ml Creatine Kinase MB Ratio 0-3.0 Troponin I 6.050 0-0.045 ng/ml Bedside Glucose 255 70-90 mg/dl Microbiology Results 02/18/17 Blood Culture, Received Pending 02/18/17 Blood Culture, Received Pending 02/18/17 MRSA DNA Surveillance Screen, Ordered Pending 02/18/17 C.difficile Toxin B Gene (PCR), Ordered Pending 02/18/17 Shiga Toxin Test, Ordered Pending 02/18/17 Stool Culture, Ordered Pending 02/18/17 Gram Stain, Ordered Pending 02/18/17 Sputum Culture, Ordered Pending Diagnostic Radiology CXR IMPRESSION: Mild cardiomegaly and mild chronic interstitial thickening. Bibasilar opacities, likely atelectatic. CT ABD/PELVIS IMPRESSION: 1. Patchy multifocal consolidative and groundglass opacities of the lung bases, left greater the right suggests pneumonia. 2. Mild rectal wall thickening with ill-defined soft tissue prominence within the region of the anal sphincter. Correlate with patient history and clinical exam. No bowel obstruction. 3. Mild wall thickening of the urinary bladder may reflect mild cystitis. 4. Prior cholecystectomy and hysterectomy. 5. Unchanged heterogeneous areas of soft tissue and calcification are again seen within the proximal thighs, bilateral gluteal distribution and lower anterior abdominal wall, Some of which are within the subcutaneous fat and other foci likely intramuscular. These findings are likely benign and may reflect injection granulomas. Impression Assessment and Plan SEPSIS, LIKELY DUE TO HCAP - admit to tele - patient presenting from [facility] with reports of fever and altered mental status - on arrival: low grade temp, WBC 15K, tachycardia (HR in the 90s), and mildly elevated POC lactic acid (2.04) - CT abd/pelvis obtained that was negative for acute abdominal findings however did show patchy multifocal consolidative and groundglass opacities of the lung bases, left greater the right suggests pneumonia - s/p Vanco and Zosyn in the ED; will continue with Vanco and Cefepime for now - patient is also immunocompromised given her history of splenectomy - blood and sputum cultures - flu PCR negative - repeat serum lactic acid 1.4 - continue IVF - patient also reporting diarrhea - stool studies ordered - has a sacral decubitus ulcer however does not appear infected; recent culture grew MRSA and patient completed Bactrim course - also has right plantar foot ulcer that does not appear infected - check U/A and culture (noted obtained after antibiotics) NSTEMI HX CAD; SSS S/P PACEMAKER - initial troponin 0.285; repeat elevated at 6.05 - patient did report chest pain this morning however details are difficult to obtained (patient with long standing history of angina induced by anxiety) - given significant elevation in second troponin, will start IV heparin - patient on medical therapy including: ASA, Plavix, fenofibrate, metoprolol, isosorbide, diltiazem, and Ranexa; holding Lisinopril due to JOSÉ MIGUEL - currently not on statin therapy, intolerant in the past per outpatient notes however is considering to re-trial - will start atorvastatin 40mg JOSÉ MIGUEL - prerenal due to sepsis - baseline creat ~ 0.8, up to 1.6 today - IVF, continue to monitor renal functions CHRONIC SYSTOLIC AND DIASTOLIC CHF - holding ACEi and furosemide due to JOSÉ MIGUEL - continue beta wallace - echo 11/2015 - EF 45-50%, grade II diastolic dysfunction DM - hgb7.4 10/2016 - managed on 30 as an outpatient - will utilize Lantus + SSI while hospitalized PVD, SMA STENOSIS S/P STENTING - continue ASA and Plavix HX TIA - continue ASA and Plavix SACRAL DECUBITUS ULCER; RIGHT PLANTAR FOOT ULCER - present on admission - no signs if infection - wound care consult HYPOTHYROIDISM - continue levothyroxine DVT PROPHYLAXIS - on IV heparin CODE STATUS - Patient is a DNR as per my discussion with her. DISPO - In my clinical judgment this beneficiary meets acute admission criteria, established by [facility], that includes being hospitalized through two midnights. - PT/OT, case management consults; expect d/c back to [facility] once medically stable Attending addendum: The patient was seen and examined Admitted with weakness ,fever and confusion Non specific complaints of Chest pain ,no palpitation or SOB Noted to have Bibasilar opacity,high WCC and increase Troponin Admitted to Telemetry on ongoing care O/E Minimal distress at rest Drowsy ,has weakness but denies any other symptoms Blood pressure on Lower side otherwise hemodynamically stable Chest-decreased breath sound at the bases with occasional crackles Heart-regular Abdomen-benign Extremities-tarce edema bilaterally Labs and Imaging studies were reviewed Has Pneumonia,Sepsis,NSTEMI and other medical condition as mentioned abobe Agree with the assessment and plan. Dr Orly Clay VTE Prophylaxis VTE Risk Assessment Done? Y/N: Yes Risk Level: Moderate
[2017-02-18] MEDS: HEPARIN 25,000 UNIT/500ML D5W 500 ML IV PRN (19:46)
[2017-02-18 20:00] VITALS: O2SAT 99
[2017-02-18] MEDS: PREGABALIN 25MG CAP PO SCH (20:59)
[2017-02-18] MEDS: MoRPHine SULFATE CR 60 MG TAB (MS CONTIN) PO SCH (20:59)
[2017-02-18] MEDS: RANOLAZINE 500 MG ER TAB PO SCH (21:00)
[2017-02-18] MEDS: METOPROLOL SUCC 50MG EXT REL TAB PO SCH (21:00)
[2017-02-18] MEDS: RANITIDINE HCL 150 MG TAB PO SCH (21:00)
[2017-02-18] MEDS: DILTIAZEM HCL 30 MG TAB PO SCH (21:01)
[2017-02-18] MEDS: LACTOBACILLUS ACIDOPHILUS (FLORANEX) TAB PO SCH (21:01)
[2017-02-18] MEDS: ATORVASTATIN 40 MG TAB PO SCH (21:20)
[2017-02-18] MEDS ORDERED: HEPARIN SOD 5000 UNIT/0.5 ML CARP SQ SCH (22:00)
[2017-02-18 23:41] VITALS: BP 123/75; PULSE 68; TEMP 36.9; O2SAT 97
[2017-02-19] MEDS: INSULIN ASPART 100 UNITS/ML 3 ML PEN SC SCH ×6 (01:02→20:43)
[2017-02-19 02:16] LABS: PARTIAL THROMBOPLASTIN RATIO 1.4
[2017-02-19 03:45] VITALS: BP 140/60; PULSE 60; TEMP 37; O2SAT 92
[2017-02-19] MEDS ORDERED: HEPARIN IV BOLUS 4,000 UNIT in SYRINGE 0 ML IV ONE (04:15)
[2017-02-19] MEDS: LEVOTHYROXINE 100 MCG TAB PO SCH (05:58)
[2017-02-19] MEDS: SODIUM CHLORIDE 0.9% 1000ML 1,000 ML IV SCH ×2 (05:59→16:35)
[2017-02-19 07:18] LABS: HEMATOCRIT 37.7 % (37-47); MEAN CORPUSCULAR HEMOGLOBIN 30.7 pg (25-34); MEAN CORPUSCULAR HGB CONC 32.4 g/dl (32-36); MEAN PLATELET VOLUME 9.6 fL (7.4-10.4); PLATELET COUNT 440 K/uL (130-400); RED BLOOD COUNT 3.97 M/uL (4.2-5.4)
[2017-02-19 07:33] LABS: BLOOD UREA NITROGEN 31 mg/dl (7-18); CALCIUM 8.5 mg/dl (8.5-10.1); CARBON DIOXIDE 26 mmol/L (21-32); CHLORIDE 107 mmol/L (98-107); CREATININE 0.98 mg/dl (0.60-1.20); GLUCOSE 133 mg/dl (70-99); POTASSIUM 3.8 mmol/L (3.5-5.1); SODIUM 138 mmol/L (136-145)
[2017-02-19 08:05] VITALS: BP 155/74; PULSE 75; TEMP 36.5; O2SAT 100
[2017-02-19 08:25] LABS: ESTIMATED AVERAGE GLUCOSE 177 mg/dl; HA1C FLAG Normal (Normal)
[2017-02-19] MEDS: DILTIAZEM HCL 30 MG TAB PO SCH ×3 (08:35→20:33)
[2017-02-19] MEDS: DULOXETINE HCL 60 MG CAP PO SCH (08:35)
[2017-02-19] MEDS: ASPIRIN 81 MG ECTAB PO SCH (08:35)
[2017-02-19] MEDS: ATORVASTATIN 40 MG TAB PO SCH (08:36)
[2017-02-19] MEDS: ISOSORBIDE MONONITRATE 60 MG TABCR PO SCH (08:36)
[2017-02-19] MEDS: LACTOBACILLUS ACIDOPHILUS (FLORANEX) TAB PO SCH ×2 (08:36→20:33)
[2017-02-19] MEDS: METOPROLOL SUCC 50MG EXT REL TAB PO SCH ×2 (08:37→20:33)
[2017-02-19] MEDS: RANOLAZINE 500 MG ER TAB PO SCH ×2 (08:37→20:34)
[2017-02-19] MEDS: CLOPIDOGREL BISULFATE 75 MG TAB PO SCH (08:37)
[2017-02-19] MEDS: RANITIDINE HCL 150 MG TAB PO SCH ×2 (08:37→20:34)
[2017-02-19] MEDS: CHOLECALCIFEROL 1000 INTER.UNIT TAB PO SCH (08:37)
[2017-02-19] MEDS: MoRPHine SULFATE CR 60 MG TAB (MS CONTIN) PO SCH ×2 (08:43→20:38)
[2017-02-19] MEDS: PREGABALIN 25MG CAP PO SCH ×2 (08:43→20:38)
[2017-02-19] MEDS ORDERED: INSULIN GLARGINE SOLOSTAR 100 UNITS/ML 3 ML PEN SC SCH (09:00)
[2017-02-19] MEDS ORDERED: MORPHINE SULFATE 10 MG PO SCH (09:00)
--- NOTE | 2017-02-19 10:16 | CARDIOLOGY CONSULTATION ---
DATE OF CONSULTATION: 02/19/2017 REFERRING PHYSICIAN: Reyna vazquez. REASON FOR CONSULTATION: Non-STEMI. HISTORY OF PRESENT ILLNESS: This is an 81-year-old female who has a very complex medical history. She is a resident at [facility]. At the end of December, she was admitted to the hospital with a history of nausea, vomiting and diarrhea and thought to be a viral gastroenteritis. She was also noted to have a sacral wound, which cultured MRSA. She was treated with antibiotics and then returned to the long term. On the day of admission, she had mental status changes and fever of 103. She was transferred from [facility] to the Emergency Department, where she has been admitted with pneumonia. Obviously, she was confused with some mental status changes and according to records, she did not mention anything regarding chest pain; however, this morning, she states that the reason she was transferred from [facility] was because she was having chest and left arm discomfort. Her EKG on admission has a paced rhythm. Her initial cardiac troponins were 0.285 and it peaked at 7.6. She is currently pain free and has no cardiac complaints. ALLERGIES: NUMEROUS AND I REFER YOU TO THE MEDICAL RECORD. PAST MEDICAL HISTORY: The patient has a longstanding history of arteriosclerotic vascular disease. In 2006, she presented with an acute inferior wall myocardial infarction and underwent a cardiac catheterization that revealed multivessel coronary artery disease. She went on to have coronary artery bypass surgery DARLING to the LAD and a saphenous vein graft to the diagonal. She received a permanent pacemaker during that hospital admission due to postoperative heart block. She has a longstanding history of peripheral vascular disease including carotid artery disease and previous angioplasty of the SMA. She has also had significant peripheral vascular disease, including nonhealing ulcers and has been followed by vascular surgery, who had done additional procedures on her lower extremities. She has also had a history of TIAs. She is a type 2 diabetic with hypertension and dyslipidemia. She has also had a history of peptic ulcer disease as well as chronic pancreatitis. She has had a history of chronic kidney disease, hypothyroidism and hepatitis. She has had multiple complex back surgeries. She currently has a spinal cord stimulator. SOCIAL HISTORY: She is a nonsmoker. She is a resident of [facility]. FAMILY MEDICAL HISTORY: Significant for coronary artery disease on her father's side. REVIEW OF SYSTEMS: A 10-point review of systems is negative except for the history of chief complaint. PHYSICAL EXAMINATION: GENERAL: She is alert and oriented. She is in no acute distress. VITAL SIGNS: Blood pressure is 150/70 and pulse is regular at 70 beats per minute. She is afebrile. HEENT: She is normocephalic. Pupils are equal and reactive to light. Extraocular muscles are intact bilaterally. NECK: The neck veins are flat. Carotids have good upstrokes bilaterally without bruits. Thyroid is nonpalpable. RESPIRATORY: Breath sounds are equal bilaterally and clear to auscultation. CARDIOVASCULAR: Heart has a regular rhythm. There is a normal S1 and S2. No S3 or S4. No cardiac rubs or murmurs. GASTROINTESTINAL: Abdomen is soft and nontender without organomegaly. EXTREMITIES: Free of edema, digit clubbing, or cyanosis. NEUROLOGIC: Grossly intact. SKIN: Warm to touch. LYMPH NODES: Negative to palpation. LABORATORY DATA: WBC count is 23.3 and hemoglobin is 12.2. Potassium is 3.8 and creatinine 0.98. Pacemaker was interrogated this morning by [facility] and is functioning appropriately. IMPRESSION: 1. Multiple complex medical problems due to a history of arteriosclerotic vascular disease, diabetes, chronic pancreatitis and multiple orthopedic surgeries on her lumbar spine. 2. Acute pneumonia. 3. Fever with mental status changes. 4. Probable ST-elevation myocardial infarction. 5. Chronic kidney disease. 6. History of hepatitis. RECOMMENDATIONS: I believe the best approach for this patient is conservative management. I cannot say that her elevation in troponins is related to demand ischemia due to her febrile illness. She is currently pain free. We will follow along with you and provide additional recommendations. She told me this morning that the reason she was transferred from [facility] was due to chest and left arm discomfort. [facility] SHOREHeather
--- NOTE | 2017-02-19 10:18 | Clinical Documentation Query ---
Dr. CAPPS [facility] : CLINICAL DOCUMENTATION QUERY Patient is an 81 year old female admitted for sepsis secondary to pneumonia. Documentation includes: "SACRAL DECUBITUS ULCER; RIGHT PLANTAR FOOT ULCER" As appropriate, please document the etiology of the right plantar foot ulcer and provide staging of ulcer(s) as appropriate. In your clinical opinion is this patient being managed for: ( ) Pressure ulcer of sacral region, stage , and right plantar foot (pressure, arterial,traumatic wound,venous insufficiency) ulcer, (stage ). ( ) Not Agree ( ) Other explanation of clinical findings (Please Explain) ( ) Unable to determine (Please Define) ( ) Need to Discuss The medical record reflects the following clinical findings, treatment, and risk factors. Clinical Indicators: As above Treatment: WOCN consultation Risk Factors: Age, malnutrition, limited mobility Please clarify and document your clinical opinion in the progress notes and discharge summary. Terms such as "probable", "suspected", "likely", "questionable", "possible", or "still to be ruled out" are acceptable. IF IN AGREEMENT, YOU MUST DOCUMENT ABOVE DIAGNOSTIC STATEMENT IN DAILY PROGRESS NOTES AND DISCHARGE SUMMARY. This document is not part of the patient's record. Thank You, Shon Reyes, RN [phone]
[2017-02-19 10:32] LABS: PARTIAL THROMBOPLASTIN RATIO 2.1
--- NOTE | 2017-02-19 10:56 | ECHOCARDIOGRAM REPORT ---
*NOTICE TO RECEIVING DEMOCRAT AGENCY This information is strictly Confidential and protected under [place] law. [place] law prohibits you from making any further disclosure of this information unless further disclosure is expressly permitted by the written consent of the person to whom it pertains or is authorized by law. A general authorization for the release of medical or other information is not sufficient for this purpose. Hospital accepts no responsibility if the information is made available to any other person, INCLUDING THE PATIENT. Interpretation Summary * Name: LARA ASHLEY Study Date: 02/19/2017 07:06 AM BP: 140/60 mmHg * Patient Location: C.2T\S\E218\S\1 HR: 60 * : 1935 (M/d/yyyy) Gender: Female Height: 60 in * Age: 81 yrs Ethnicity: [place] Weight: 121 lb * Ordering Physician: Winsome Naik * Referring Physician: Self, Referred * Performed By: Renee Chaves RCS * * Reason For Study: Chest Pain * BSA: 1.5 m2 * -- Conclusions -- * Normal LV chamber size with mild concentric LVH. * Moderately reduced LV systolic function, EF 35-40%. * Akinesis of the inferiorlateral wall along moderate hypokinesis of the inferior/inferoseptal jimenez, otherwise, normal wall motion. * The right ventricular cavity size is normal (basal dimension <4.2 cm in right ventricular apical 4-chamber view). Mildly reduced RV systolic function. * Aortic valve sclerosis moderate, without significant aortic valvular stenosis. Moderate mitral regurgitation. * Moderate mitral regurgitation. * Mild tricuspid regurgitation. * Mild left atrial enlargement. Procedure Details * A complete two-dimensional transthoracic echocardiogram was performed (2D, M-mode, Doppler and color flow Doppler). Left Ventricle * The left ventricle is normal in size. * There is mild concentric left ventricular hypertrophy. * Left ventricular systolic function is normal. * Left ventricular systolic function is moderately reduced. * Ejection Fraction = 35-40%. * Septal motion is consistent with post-operative state. * Akinesis of the inferiorlateral wall along moderate hypokinesis of the inferior/inferoseptal jimenez, otherwise, normal wall motion. Right Ventricle * The right ventricular cavity size is normal (basal dimension <4.2 cm in right ventricular apical 4-chamber view). * The right ventricular systolic function is mildly reduced. Atria * The left atrium is mildly dilated. * Right atrial size is normal. * No ASD detected; PFO is not assessed. Mitral Valve * There is mild mitral annular calcification. * There is no mitral valve stenosis. * There is moderate mitral regurgitation. Tricuspid Valve * The tricuspid valve anatomy is normal. * There is no tricuspid stenosis. * There is mild tricuspid regurgitation. Aortic Valve * Aortic valve sclerosis moderate, without significant aortic valvular stenosis. * No hemodynamically significant valvular aortic stenosis. * Moderate aortic regurgitation. Pulmonic Valve * The pulmonary valve is not well seen, but the Doppler examination is normal without significant regurgitation or stenosis. Great Vessels * The aortic root and proximal ascending aorta are normal sized. Pericardium/Pleural * There is no pericardial effusion. Left Ventricular Diastolic Function * Diastolic dysfunction, Grade II (pseudonormalization pattern). MMode 2D Measurements and Calculations IVSd 1.1 cm IVSs 1.3 cm LVIDd 4.9 cm LVIDs 4.3 cm LVPWd 1.1 cm LVPWs 1.3 cm IVS/LVPW 1.0 FS 11.7 % EDV(Teich) 111.9 ml ESV(Teich) 83.6 ml EF(Teich) 25.3 % EDV(cubed) 116.4 ml ESV(cubed) 80.1 ml EF(cubed) 31.2 % % IVS thick 15.8 % % LVPW thick 16.2 % LV mass(C)d 206.4 grams LV mass(C)dI 136.9 grams/m\S\2 LV mass(C)s 210.5 grams LV mass(C)sI 139.6 grams/m\S\2 SV(Teich) 28.3 ml SI(Teich) 18.8 ml/m\S\2 SV(cubed) 36.3 ml SI(cubed) 24.1 ml/m\S\2 Ao root diam 3.2 cm Ao root area 8.3 cm\S\2 ACS 1.5 cm LA dimension 4.7 cm asc Aorta Diam 3.4 cm LA/Ao 1.4 EDV(MOD-sp4) 122.0 ml ESV(MOD-sp4) 83.0 ml EF(MOD-sp4) 32.0 % EDV(MOD-sp2) 157.0 ml ESV(MOD-sp2) 87.0 ml EF(MOD-sp2) 44.6 % SV(MOD-sp4) 39.0 ml SI(MOD-sp4) 25.9 ml/m\S\2 SV(MOD-sp2) 70.0 ml SI(MOD-sp2) 46.4 ml/m\S\2 Doppler Measurements and Calculations MV E max olga 154.0 cm/sec MV A max olga 101.5 cm/sec MV E/A 1.5 MV P1/2t max olga 156.4 cm/sec MV P1/2t 64.4 msec MVA(P1/2t) 3.4 cm\S\2 MV dec slope 711.2 cm/sec\S\2 MV dec time 0.19 sec Ao V2 max 135.9 cm/sec Ao max PG 7.4 mmHg Ao max PG (full) 2.3 mmHg AI max olga 276.1 cm/sec AI max PG 30.5 mmHg AI dec slope 93.6 cm/sec\S\2 AI P1/2t 863.8 msec LV V1 max PG 5.1 mmHg LV V1 max 112.4 cm/sec PA V2 max 76.6 cm/sec PA max PG 2.4 mmHg PI max olga 141.3 cm/sec PI max PG 8.0 mmHg PI dec slope 80.7 cm/sec\S\2 PI P1/2t 512.6 msec TR max olga 293.8 cm/sec
[2017-02-19 11:10] VITALS: BP 155/71; PULSE 68; TEMP 36.8; O2SAT 99
--- NOTE | 2017-02-19 11:45 | Pharmacy Progress Note ---
Pharmacy Glycemic Short Note 2 Date of Service Feb 19, 2017. OUTPATIENT ANTIDIABETIC REGIMEN: * Novolin 70/30 60 units SQ qAM, 46 units SQ qPM * HbA1c: 7.8% (02/19/17) ASSESSMENT: * Ms Griffiths is an 81yo diabetic female, who has been managed by pharmacy glycemic service in the past. * Pt was hyperglycemic on admission yesterday, but BSGs have largely resolved today. * Fasting BSG was reasonable, but pre-lunch BSG elevated, suggesting inadequate prandial coverage (will adjust). * Patient is receiving IV Vancomycin and Cefepime for pulm infx/sepsis. Also NS @100mL/hr and heparin gtt. * Patient is ordered a Type 2 DM/AHA/Low Na diet, which she appears to be tolerating. PLAN FOR INPATIENT GLYCEMIC CONTROL: * Basal insulin * Lantus 25 units SQ BID * Bolus insulin * NovoLog per scale ACHS or Q6hrs while NPO * Goal Range: Low 110 mg/dL - High 150 mg/dL * Correction Factor: 25 mg/dL/unit * Nutritional / Prandial insulin per carb ratio of 1 unit per 8 grams CHO consumed PLAN FOR DISCHARGE: * Current A1c indicates reasonably well-controlled diabetes as an outpt, for an 81yo w/ multiple co-morbidities. * Expect that it will likely be reasonable to resume home regimen on discharge.
[2017-02-19 15:00] VITALS: BP 128/61; PULSE 62; TEMP 36.6; O2SAT 97
[2017-02-19] MEDS: CEFEPIME IV 2,000 MG in SYRINGE 7.5 ML IV SCH (17:15)
[2017-02-19] MEDS: VANCOMYCIN INJ 1,000 MG in SODIUM CHLORIDE 0.9% 250ML 250 ML IV SCH (17:15)
--- NOTE | 2017-02-19 18:12 | Progress Note ---
Internal Med Progress Note Date of Service: Feb 19, 2017. Provider Documentation: SUBJECTIVE: RESTING COMFORTABLY SAYS FEELING MUCH BETTER TODAY CHEST PRESSURE RESOLVED AFEBRILE DENIES SOB HAS COUGH WITH SPUTUM OBJECTIVE: Vital Signs-as noted below Exam: General-alert and oriented. not in distress ENT-Normal hearing Neck-no neck masses Lungs-Cta b/l no wheezing or crackles Heart-S1 and S2 heard regular No murmurs Abdomen-Soft Bowel sounds present Non tender No distension Extremities- No erythema Neuro- alert and awake moves extremities Lab data as noted below. 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 trending down had chest pressure on presentation but resolved now started on iv heparin On medical therapy including: ASA, Plavix, fenofibrate, metoprolol, isosorbide, diltiazem, and Ranexa; holding Lisinopril due to JOSÉ MIGUEL Was not on statin therapy, intolerant in the past per outpatient notes however is considering to re-trial - to try atorvastatin 40mg conservative management as per cardiology JOSÉ MIGUEL from above baseline creat ~ 0.8, up to 1.6 on presentation resolved CHRONIC SYSTOLIC AND DIASTOLIC CHF holding ACEi and furosemide due to JOSÉ MIGUEL on beta wallace echo 11/2015 - EF 45-50%, grade II diastolic dysfunction will restart acei and diuretics in am as JOSÉ MIGUEL resolved DM hgb7.4 10/2016 on 70/30 as an outpatient on Lantus + SSI while hospitalized will monitor PVD, SMA STENOSIS S/P STENTING on ASA and Plavix HX TIA -on ASA and Plavix SACRAL DECUBITUS ULCER; RIGHT PLANTAR FOOT ULCER present on admission will recheck wound care consult HYPOTHYROIDISM on levothyroxine DVT PROPHYLAXIS on IV heparin CODE STATUS Patient is a DNR as per h and p DISPOSITION monitor in tele to be determined Vital Signs: Date Time Temp Pulse Resp B/P (MAP) Pulse Ox O2 Delivery O2 Flow Rate FiO2 02/19/17 16:00 Nasal Cannula 2.0 02/19/17 15:00 36.6 62 16 128/61 (83) 97 Nasal Cannula 2.0 02/19/17 12:00 Nasal Cannula 2.0 02/19/17 11:10 36.8 68 16 155/71 (99) 99 2.0 02/19/17 08:05 36.5 75 16 155/74 (101) 100 2.0 02/19/17 08:00 Nasal Cannula 2.0 02/19/17 04:10 Room Air 02/19/17 03:45 37.0 60 18 140/60 (86) 92 Room Air 02/19/17 00:20 Room Air 02/18/17 23:41 36.9 68 18 123/75 (91) 97 Room Air 02/18/17 20:00 99 Room Air 02/18/17 19:36 37.3 79 16 162/82 (108) 99 Room Air Lab Results: Results Past 24 Hours Test 02/18/17 19:00 02/18/17 20:41 02/18/17 21:58 02/19/17 00:24 Range/Units Activated Partial Thromboplast Time 26.0 21.0-31.0 SECONDS Partial Thromboplastin Ratio 1.0 Bedside Glucose 227 167 70-90 mg/dl Creatine Kinase MB 9.4 0.5-3.6 ng/ml Creatine Kinase MB Ratio 0-3.0 Troponin I 7.680 0-0.045 ng/ml Test 02/19/17 01:45 02/19/17 03:39 02/19/17 04:44 02/19/17 06:32 Range/Units Activated Partial Thromboplast Time 37.4 21.0-31.0 SECONDS Partial Thromboplastin Ratio 1.4 Bedside Glucose 133 70-90 mg/dl Creatine Kinase MB Ratio 0-3.0 White Blood Count 23.30 4.8-10.8 K/uL Red Blood Count 3.97 4.2-5.4 M/uL Hemoglobin 12.2 12.0-16.0 g/dL Hematocrit 37.7 37-47 % Mean Corpuscular Volume 95.0 80-100 fL Mean Corpuscular Hemoglobin 30.7 25-34 pg Mean Corpuscular Hemoglobin Concent 32.4 32-36 g/dl RDW Standard Deviation 55.5 36.4-46.3 fL RDW Coefficient of Variation 16.0 11.5-14.5 % Platelet Count 440 130-400 K/uL Mean Platelet Volume 9.6 7.4-10.4 fL Sodium Level 138 136-145 mmol/L Potassium Level 3.8 3.5-5.1 mmol/L Chloride Level 107 98-107 mmol/L Carbon Dioxide Level 26 21-32 mmol/L Anion Gap 5.0 3-11 mmol/L Blood Urea Nitrogen 31 7-18 mg/dl Creatinine 0.98 0.60-1.20 mg/dl Est Creatinine Clear Calc Drug Dose 38.9 ml/min Estimated GFR () 62.3 Estimated GFR (Non- 53.7 BUN/Creatinine Ratio 32.0 10-20 Random Glucose 133 70-99 mg/dl Estimated Average Glucose 177 mg/dl Hemoglobin A1c 7.8 4.5-5.6 % Calcium Level 8.5 8.5-10.1 mg/dl Creatine Kinase MB 7.1 0.5-3.6 ng/ml Troponin I 5.430 0-0.045 ng/ml Test 02/19/17 06:59 02/19/17 10:04 02/19/17 10:39 02/19/17 16:20 Range/Units Bedside Glucose 124 203 97 70-90 mg/dl Activated Partial Thromboplast Time 53.8 21.0-31.0 SECONDS Partial Thromboplastin Ratio 2.1 Microbiology Results 02/18/17 MRSA DNA Surveillance Screen - Final, Complete Specimen Negative for MRSA by DNA Probe 02/19/17 Gram Stain, Received Pending 02/19/17 Sputum Culture, Received Pending
[2017-02-19 19:00] VITALS: BP 132/64; PULSE 60; TEMP 36.4; O2SAT 94
[2017-02-19 23:16] VITALS: BP 149/54; PULSE 61; TEMP 36.9; O2SAT 99
[2017-02-20] VITALS (7 sets, daily range): BP systolic 106–155; BP diastolic 64–75; PULSE 58–99; TEMP 36.5–37; O2SAT 95–99
[2017-02-20] LABS: URINE APPEARANCE CLEAR (CLEAR); URINE BILIRUBIN NEG (NEG); URINE COLOR YELLOW; URINE NITRITE NEG (NEG); URINE SPECIFIC GRAVITY 1.019 (1.000-1.030); UROBILINOGEN NEG (NEG); ZZURINE CULT IF INDIC CATH NO
[2017-02-20 00:01] LABS: MANUAL MICROSCOPIC REQUIRED? NO; REVIEW REQ? NO
[2017-02-20] MEDS: SODIUM CHLORIDE 0.9% 1000ML 1,000 ML IV SCH ×2 (03:40→14:03)
[2017-02-20] MEDS: LEVOTHYROXINE 100 MCG TAB PO SCH (06:19)
[2017-02-20 07:09] LABS: HEMATOCRIT 31.9 % (37-47); MEAN CELL VOLUME 95.5 fL (80-100); MEAN CORPUSCULAR HEMOGLOBIN 30.8 pg (25-34); MEAN CORPUSCULAR HGB CONC 32.3 g/dl (32-36); MEAN PLATELET VOLUME 9.6 fL (7.4-10.4); PLATELET COUNT 362 K/uL (130-400); RED BLOOD COUNT 3.34 M/uL (4.2-5.4); WHITE BLOOD COUNT 17.38 K/uL (4.8-10.8)
[2017-02-20 07:28] LABS: PARTIAL THROMBOPLASTIN RATIO 1.9
[2017-02-20 07:41] LABS: CREATININE 0.83 mg/dl (0.60-1.20)
[2017-02-20] MEDS: INSULIN ASPART 100 UNITS/ML 3 ML PEN SC SCH ×4 (08:23→21:00)
[2017-02-20] MEDS: INSULIN GLARGINE SOLOSTAR 100 UNITS/ML 3 ML PEN SC SCH (08:24)
[2017-02-20] MEDS: MoRPHine SULFATE CR 60 MG TAB (MS CONTIN) PO SCH ×2 (08:28→21:17)
[2017-02-20] MEDS: PREGABALIN 25MG CAP PO SCH ×2 (08:28→21:17)
[2017-02-20] MEDS: DILTIAZEM HCL 30 MG TAB PO SCH ×3 (08:29→21:11)
[2017-02-20] MEDS: ASPIRIN 81 MG ECTAB PO SCH (08:29)
[2017-02-20] MEDS: DULOXETINE HCL 60 MG CAP PO SCH (08:29)
[2017-02-20] MEDS: ISOSORBIDE MONONITRATE 60 MG TABCR PO SCH (08:30)
[2017-02-20] MEDS: ATORVASTATIN 40 MG TAB PO SCH (08:30)
[2017-02-20] MEDS: CLOPIDOGREL BISULFATE 75 MG TAB PO SCH (08:30)
[2017-02-20] MEDS: LACTOBACILLUS ACIDOPHILUS (FLORANEX) TAB PO SCH ×2 (08:30→21:17)
[2017-02-20] MEDS: METOPROLOL SUCC 50MG EXT REL TAB PO SCH ×2 (08:31→21:10)
[2017-02-20] MEDS: RANITIDINE HCL 150 MG TAB PO SCH ×2 (08:31→21:11)
[2017-02-20] MEDS: RANOLAZINE 500 MG ER TAB PO SCH ×2 (08:31→21:11)
[2017-02-20] MEDS: CHOLECALCIFEROL 1000 INTER.UNIT TAB PO SCH (08:31)
--- NOTE | 2017-02-20 09:14 | Pharmacy Progress Note ---
Glycemic Control Progress Note Date of Service Feb 20, 2017. Scope Glycemic Pharmacist consulted for glycemic control to write orders per [facility] inpatient glycemic control protocol. Objective Accuchecks BSG (last 24hrs): Test 02/19/17 10:39 02/19/17 16:20 02/19/17 19:56 02/20/17 06:42 Bedside Glucose 203 mg/dl (70-90) 97 mg/dl (70-90) 136 mg/dl (70-90) 153 mg/dl (70-90) HbA1c: Test 02/19/17 06:32 Hemoglobin A1c 7.8 % (4.5-5.6) H Recent Pertinent Medications The patient is currently receiving: * Basal insulin: Lantus 20 units SQ x 1 given in the AM yesterday; ordered 25 units Q AM starting this AM * Correctional Insulin: Novolog Correction per scale ACHS Goal Range: Low 110 mg/dL - High 150 mg/dL Correction Factor: 25 mg/dL/unit * Prandial insulin: Per carb ratio of 1 unit per 8 grams CHO consumed * Oral Agents: None currently Outpatient Anti-Diabetic Meds * Novolin 70/30 60 units SQ qAM, 46 units SQ qPM * HbA1c: 7.8% (02/19/17) Assessment & Plan ASSESSMENT: 02/20/17 * BSGs have ranged 97-203 over the last 24 hours; only 1 BSG was elevated above goal range yesterday * Patient has received 37 units SQ insulin over the last 24 hrs (0.5units/kg/day ) while tolerating a diet * Fasting BSG mildly elevated this AM, FBS 153, however Lantus dose this AM will be larger than yesterday's - would be reasonable to continue w/ current order. Of note she did tolerate a higher basal insulin dose on prior admission * Post-prandial BSGs well controlled after CR adjustment made yesterday - will continue the same today and follow BSG pattern PLAN FOR INPATIENT GLYCEMIC CONTROL: * Continuing Lantus 25 units SQ Q AM * Continuing correction factor 25 mg/dl/unit * Continuing carb ratio 1 unit per 8 grams CHO consumed * Continuing goal range Low 110 mg/dL - High 150 mg/dL RECOMMENDATIONS FOR DISCHARGE: * * Please note that the plan above was derived based on current level of insulin resistance and hospital stress. These recommendations are appropriate for inpatient admission only. Plan of care upon discharge will need to be reassessed to avoid potential outpatient hypo/hyperglycemia. Thank you.
--- NOTE | 2017-02-20 10:41 | PROGRESS NOTE ---
DATE: 02/20/2017 FOLLOWUP VISIT SUBJECTIVE: This is an 81-year-old diabetic female with a history of severe vascular disease. She was admitted with pneumonia. She also had a non-STEMI infarct. Over the past 24-48 hours, she has been stable. She has had no cardiac complaints and this morning feels well. Her troponins peaked at 7.6. She denies chest pain or shortness of breath. OBJECTIVE: GENERAL: She is alert and oriented. VITAL SIGNS: Blood pressure is 130/60, pulse is regular at 60. She is afebrile. HEENT: She is normocephalic. Pupils are equal and reactive to light. Extraocular muscles are intact bilaterally. NECK: The neck veins are flat. Carotids have good upstrokes bilaterally without bruits. Thyroid is nonpalpable. RESPIRATORY: Breath sounds equal bilaterally and clear to auscultation. CARDIOVASCULAR: Heart has a regular rhythm. Normal S1, S2. No S3, S4. No cardiac rubs or murmurs. GASTROINTESTINAL: Abdomen is soft, nontender without organomegaly. EXTREMITIES: Free of edema, digit clubbing, or cyanosis. NEUROLOGIC: Grossly intact. SKIN: Warm to touch. LYMPH NODES: Negative to palpation. LABORATORY DATA: Hemoglobin is 10.3, WBC count is 17.38, and creatinine is 0.83. IMPRESSION: 1. Non-ST elevation myocardial infarction. 2. Severe diffuse arteriosclerotic vascular disease. 3. Diabetes mellitus. 4. Pneumonia. RECOMMENDATIONS: At this point, I believe the patient is clinically stable and I think the best approach is conservative management. I would continue her current medications including the heparin for another 24 hours. If she remains pain free, by tomorrow, then this medication can be discontinued. If she remains pain free and stable from a cardiac standpoint, if she can be switched over to oral antibiotics, then we could consider sending her back to [facility].
[2017-02-20] MEDS: CEFEPIME IV 2,000 MG in SYRINGE 7.5 ML IV SCH (12:42)
--- NOTE | 2017-02-20 18:07 | Progress Note ---
Internal Med Progress Note Date of Service: Feb 20, 2017. Provider Documentation: SUBJECTIVE: resting comfortably on the chair cough improving no sob or chest pain eating fine afebrile OBJECTIVE: Vital Signs-as noted below Exam: General-alert and oriented. not in distress ENT-Normal hearing Neck-no neck masses Lungs-Cta b/l no wheezing or crackles Heart-S1 and S2 heard regular No murmurs Abdomen-Soft Bowel sounds present Non tender No distension Extremities- No erythema Skin stage 1/2 sacral decubitus ulcer Neuro- alert and awake moves extremities Lab data as noted below. 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 trending down had chest pressure on presentation but resolved now started on iv heparin On medical therapy including: ASA, Plavix, fenofibrate, metoprolol, isosorbide, diltiazem, and Ranexa; holding Lisinopril due to JOSÉ MIGUEL Was not on statin therapy, intolerant in the past per outpatient notes however is considering to re-trial - to try atorvastatin 40mg conservative management as per cardiology. to continue iv heparin for 24 hrs JOSÉ MIGUEL from above baseline creat ~ 0.8, up to 1.6 on presentation resolved CHRONIC SYSTOLIC AND DIASTOLIC CHF holding ACEi and furosemide due to JOSÉ MIGUEL on beta wallace echo 11/2015 - EF 45-50%, grade II diastolic dysfunction will restart acei and diuretics in am as JOSÉ MIGUEL resolved DM hgb7.4 10/2016 on 70/30 as an outpatient on Lantus + SSI while hospitalized will monitor PVD, SMA STENOSIS S/P STENTING on ASA and Plavix HX TIA -on ASA and Plavix SACRAL DECUBITUS ULCER stage 1/2; RIGHT PLANTAR FOOT ULCER- resolved present on admission wound care consult HYPOTHYROIDISM on levothyroxine DVT PROPHYLAXIS on IV heparin CODE STATUS Patient is a DNR as per h and p DISPOSITION monitor in tele pt/ot plan for roxanna milner when stable Vital Signs: Date Time Temp Pulse Resp B/P (MAP) Pulse Ox O2 Delivery O2 Flow Rate FiO2 02/20/17 16:00 Room Air 02/20/17 15:10 37.0 58 16 154/66 (95) 96 Room Air 02/20/17 12:00 Room Air 02/20/17 10:36 36.8 60 20 154/75 (101) 95 Room Air 02/20/17 08:00 Nasal Cannula 2.0 02/20/17 07:28 36.6 60 20 144/72 (96) 99 Nasal Cannula 2.0 02/20/17 04:00 Nasal Cannula 2.0 02/20/17 03:59 36.8 60 17 131/64 (86) 98 Nasal Cannula 2.0 02/20/17 03:47 99 106/75 (85) 02/19/17 23:59 Nasal Cannula 2.0 02/19/17 23:16 36.9 61 18 149/54 (85) 99 Nasal Cannula 2.0 02/19/17 20:00 Nasal Cannula 2.0 02/19/17 19:00 36.4 60 18 132/64 (86) 94 Room Air Lab Results: Results Past 24 Hours Test 02/19/17 18:05 02/19/17 19:56 02/19/17 23:30 02/20/17 06:32 Range/Units Bedside Glucose 136 70-90 mg/dl Urine Color YELLOW Urine Appearance CLEAR CLEAR Urine pH 5.0 4.5-7.5 Urine Specific [place] 1.019 1.000-1.030 Urine Protein NEG NEG Urine Glucose (UA) NEG NEG Urine Ketones NEG NEG Urine Occult Blood NEG NEG Urine Nitrite NEG NEG Urine Bilirubin NEG NEG Urine Urobilinogen NEG NEG Urine Leukocyte Esterase NEG NEG Urine WBC (Auto) 1-5 0-5 /hpf Urine RBC (Auto) 0-4 0-4 /hpf Urine Hyaline Casts (Auto) 0 0-5 /lpf Urine Epithelial Cells (Auto) 10-20 0-5 /lpf Urine Bacteria (Auto) NEG NEG White Blood Count 17.38 4.8-10.8 K/uL Red Blood Count 3.34 4.2-5.4 M/uL Hemoglobin 10.3 12.0-16.0 g/dL Hematocrit 31.9 37-47 % Mean Corpuscular Volume 95.5 80-100 fL Mean Corpuscular Hemoglobin 30.8 25-34 pg Mean Corpuscular Hemoglobin Concent 32.3 32-36 g/dl RDW Standard Deviation 56.3 36.4-46.3 fL RDW Coefficient of Variation 16.1 11.5-14.5 % Platelet Count 362 130-400 K/uL Mean Platelet Volume 9.6 7.4-10.4 fL Activated Partial Thromboplast Time 48.3 21.0-31.0 SECONDS Partial Thromboplastin Ratio 1.9 Creatinine 0.83 0.60-1.20 mg/dl Est Creatinine Clear Calc Drug Dose 46.0 ml/min Estimated GFR () 76.1 Estimated GFR (Non- 65.7 Test 02/20/17 06:42 02/20/17 11:04 02/20/17 16:22 Range/Units Bedside Glucose 153 189 222 70-90 mg/dl
[2017-02-20] MEDS: VANCOMYCIN INJ 1,000 MG in SODIUM CHLORIDE 0.9% 250ML 250 ML IV SCH (18:36)
[2017-02-21] MEDS: SODIUM CHLORIDE 0.9% 1000ML 1,000 ML IV SCH ×2 (01:36→11:01)
[2017-02-21] MEDS: CEFEPIME IV 2,000 MG in SYRINGE 7.5 ML IV SCH ×3 (01:42→23:40)
[2017-02-21 03:53] VITALS: BP 156/69; PULSE 60; TEMP 36.8; O2SAT 98
[2017-02-21] MEDS: LEVOTHYROXINE 100 MCG TAB PO SCH (06:08)
[2017-02-21 06:50] LABS: BASO % 0.7 %; BASO ABS # 0.12 K/uL (0-0.2); COMPLETE YES; EOS % 21.2 %; HEMATOCRIT 34.2 % (37-47); IG% 0.2 %; LYMPH % 22.8 %; LYMPH ABS # 3.73 K/uL (1.2-3.4); MEAN CELL VOLUME 95.3 fL (80-100); MEAN CORPUSCULAR HEMOGLOBIN 31.2 pg (25-34); MEAN CORPUSCULAR HGB CONC 32.7 g/dl (32-36); MEAN PLATELET VOLUME 9.5 fL (7.4-10.4); MONO % 8.5 %; NEUT % 46.6 %; PLATELET COUNT 354 K/uL (130-400); RED BLOOD COUNT 3.59 M/uL (4.2-5.4); WHITE BLOOD COUNT 16.39 K/uL (4.8-10.8)
[2017-02-21 06:56] LABS: PARTIAL THROMBOPLASTIN RATIO 1.7
[2017-02-21 07:20] LABS: BUN/CREATININE RATIO 19.9 (10-20); CALCIUM 8.2 mg/dl (8.5-10.1); CREATININE 0.75 mg/dl (0.60-1.20); MAGNESIUM 1.7 mg/dl (1.8-2.4)
[2017-02-21 07:31] VITALS: BP 153/76; PULSE 60; TEMP 36.4; O2SAT 100
[2017-02-21] MEDS ORDERED: HEPARIN IV BOLUS 2,000 UNIT in SYRINGE 0 ML IV ONE (07:45)
[2017-02-21] MEDS: INSULIN ASPART 100 UNITS/ML 3 ML PEN SC SCH ×4 (08:14→21:01)
[2017-02-21] MEDS: INSULIN GLARGINE SOLOSTAR 100 UNITS/ML 3 ML PEN SC SCH (08:16)
[2017-02-21] MEDS: HEPARIN 25,000 UNIT/500ML D5W 500 ML IV PRN (08:16)
[2017-02-21] MEDS: ASPIRIN 81 MG ECTAB PO SCH (08:19)
[2017-02-21] MEDS: DULOXETINE HCL 60 MG CAP PO SCH (08:19)
[2017-02-21] MEDS: DILTIAZEM HCL 30 MG TAB PO SCH ×3 (08:19→21:03)
[2017-02-21] MEDS: ISOSORBIDE MONONITRATE 60 MG TABCR PO SCH (08:20)
[2017-02-21] MEDS: LACTOBACILLUS ACIDOPHILUS (FLORANEX) TAB PO SCH ×2 (08:20→21:02)
[2017-02-21] MEDS: FUROSEMIDE 40 MG TAB PO SCH (08:20)
[2017-02-21] MEDS: CHOLECALCIFEROL 1000 INTER.UNIT TAB PO SCH (08:21)
[2017-02-21] MEDS: RANOLAZINE 500 MG ER TAB PO SCH ×2 (08:21→21:03)
[2017-02-21] MEDS: CLOPIDOGREL BISULFATE 75 MG TAB PO SCH (08:21)
[2017-02-21] MEDS: ATORVASTATIN 40 MG TAB PO SCH (08:21)
[2017-02-21] MEDS: RANITIDINE HCL 150 MG TAB PO SCH ×2 (08:22→21:02)
[2017-02-21] MEDS: METOPROLOL SUCC 50MG EXT REL TAB PO SCH ×2 (08:22→21:02)
[2017-02-21] MEDS: LISINOPRIL 5 MG TAB PO SCH (08:22)
[2017-02-21] MEDS: MoRPHine SULFATE CR 60 MG TAB (MS CONTIN) PO SCH ×2 (08:25→21:07)
[2017-02-21] MEDS: PREGABALIN 25MG CAP PO SCH ×2 (08:25→21:07)
--- NOTE | 2017-02-21 10:08 | Pharmacy Progress Note ---
Glycemic Control Progress Note Date of Service Feb 21, 2017. Scope Glycemic Pharmacist consulted for glycemic control to write orders per [facility] inpatient glycemic control protocol. Objective Accuchecks BSG (last 24hrs): Test 02/20/17 11:04 02/20/17 16:22 02/20/17 20:14 02/21/17 06:14 Bedside Glucose 189 mg/dl (70-90) 222 mg/dl (70-90) 146 mg/dl (70-90) Random Glucose 140 mg/dl (70-99) Test 02/21/17 06:36 Bedside Glucose 136 mg/dl (70-90) HbA1c: Test 02/19/17 06:32 Hemoglobin A1c 7.8 % (4.5-5.6) H Recent Pertinent Medications The patient is currently receiving: * Basal insulin: Lantus 25 Q AM since 02/20 * Correctional Insulin: Novolog Correction per scale ACHS Goal Range: Low 110 mg/dL - High 150 mg/dL Correction Factor: 25 mg/dL/unit * Prandial insulin: Per carb ratio of 1 unit per 8 grams CHO consumed * Oral Agents: None currently Outpatient Anti-Diabetic Meds * Novolin 70/30 60 units SQ qAM, 46 units SQ qPM * HbA1c: 7.8% (02/19/17) Assessment & Plan ASSESSMENT: 02/20/17 * BSGs have ranged 97-203 over the last 24 hours; only 1 BSG was elevated above goal range yesterday * Patient has received 37 units SQ insulin over the last 24 hrs (0.5units/kg/day ) while tolerating a diet * Fasting BSG mildly elevated this AM, FBS 153, however Lantus dose this AM will be larger than yesterday's - would be reasonable to continue w/ current order. Of note she did tolerate a higher basal insulin dose on prior admission * Post-prandial BSGs well controlled after CR adjustment made yesterday - will continue the same today and follow BSG pattern 02/21/17 * Fasting BSG at goal this AM w/ 25 units Lantus on board. FBS may improve w/ repeat dosing as we approach steady-state * Post-prandial BSGs elevated x 2 yesterday; will increase prandial insulin dose and lower goal range slightly to allow for better control PLAN FOR INPATIENT GLYCEMIC CONTROL: * Continuing Lantus 25 units SQ Q AM * Continuing correction factor 25 mg/dl/unit * Changing carb ratio to 1 unit per 7 grams CHO consumed * Changing goal range to Low 110 mg/dL - High 140 mg/dL * Please note that the plan above was derived based on current level of insulin resistance and hospital stress. These recommendations are appropriate for inpatient admission only. Plan of care upon discharge will need to be reassessed to avoid potential outpatient hypo/hyperglycemia. Thank you.
[2017-02-21 10:59] VITALS: BP 147/64; PULSE 60; TEMP 36.5; O2SAT 97
--- NOTE | 2017-02-21 11:04 | PROGRESS NOTE ---
DATE: 02/21/2017 FOLLOWUP VISIT SUBJECTIVE: The patient is an 81-year-old diabetic female with a history of severe vascular disease. She was admitted with pneumonia and after presentation by cardiac markers, also had a non-STEMI infarct. We decided on conservative management due to her significant history of diffuse vascular disease. The patient has been pain free since hospital admission. At this point, I believe we can discontinue her heparin. Physical therapy has been working with her and she has been ambulated in her room. OBJECTIVE: GENERAL: She is alert and oriented. VITAL SIGNS: Blood pressure is 150/70, pulse is regular at 60. She is afebrile. HEENT: She is normocephalic. Pupils are equal and reactive to light. Extraocular muscles are intact bilaterally. NECK: The neck veins are flat. Carotids have good upstrokes bilaterally without bruits. Thyroid is nonpalpable. RESPIRATORY: Breath sounds equal bilaterally and clear to auscultation. CARDIOVASCULAR: Heart has a regular rhythm. Normal S1, S2. No S3, S4. No cardiac rubs or murmurs. GASTROINTESTINAL: Abdomen is soft, nontender without organomegaly. EXTREMITIES: Free of edema, digit clubbing, or cyanosis. NEUROLOGIC: Grossly intact. SKIN: Warm to touch. LYMPH NODES: Negative to palpation. IMPRESSION: 1. Non-ST elevation myocardial infarction. 2. Severe diffuse arteriosclerotic vascular disease. 3. Diabetes mellitus. 4. Pneumonia. RECOMMENDATIONS: As outlined above, I think we can discontinue the heparin today. I would continue ambulation and activity. She could possibly be discharged home as soon as tomorrow if all goes well.
--- NOTE | 2017-02-21 13:26 | Progress Note ---
Internal Med Progress Note Date of Service: Feb 21, 2017. Provider Documentation: SUBJECTIVE: resting comfortably ambulating in room ok cough and sob much improved eating little no other complaints OBJECTIVE: Vital Signs-as noted below Exam: General-alert and oriented. not in distress ENT-Normal hearing Neck-no neck masses Lungs-Cta b/l no wheezing or crackles Heart-S1 and S2 heard regular No murmurs Abdomen-Soft Bowel sounds present Non tender No distension Extremities- No erythema Skin stage 1/2 sacral decubitus ulcer Neuro- alert and awake moves extremities Lab data as noted below. ASSESSMENT & PLAN: SEPSIS, LIKELY DUE TO HCAP Roxanna Milner patient presents with fever and altered mental status patient is immunocompromised given her history of splenectomy multifocal pneumonia on imaging studies flu PCR negative await cx on iv vanco and cefepime f/u stool studies as had diarrhea- no bowel movement since admission recently treated with Bactrim for MRSA in sacral decubitus ulcer continue current abx for now will change to po abx in am NSTEMI HX CAD; SSS S/P PACEMAKER initial troponin 0.285; repeat elevated at 6.05. trending down had chest pressure on presentation but resolved now started on iv heparin On medical therapy including: ASA, Plavix, fenofibrate, metoprolol, isosorbide, diltiazem, and Ranexa; holding Lisinopril due to JOSÉ MIGUEL Was not on statin therapy, intolerant in the past per outpatient notes however is considering to re-trial - to try atorvastatin 40mg conservative management as per cardiology. to stop iv heparin today. stable JOSÉ MIGUEL from above baseline creat ~ 0.8, up to 1.6 on presentation resolved CHRONIC SYSTOLIC AND DIASTOLIC CHF holding ACEi and furosemide due to JOSÉ MIGUEL on beta wallace echo 11/2015 - EF 45-50%, grade II diastolic dysfunction restart acei and diuretics today as JOSÉ MIGUEL resolved DM hgb7.4 10/2016 on 70/30 as an outpatient on Lantus + SSI while hospitalized will monitor PVD, SMA STENOSIS S/P STENTING on ASA and Plavix HX TIA -on ASA and Plavix SACRAL DECUBITUS ULCER stage 1/2; RIGHT PLANTAR FOOT ULCER- resolved present on admission wound care consult HYPOTHYROIDISM on levothyroxine DVT PROPHYLAXIS hep sub q CODE STATUS Patient is a DNR as per h and p DISPOSITION monitor in tele pt/ot plan for roxanna milner in 1-2 days Vital Signs: Date Time Temp Pulse Resp B/P (MAP) Pulse Ox O2 Delivery O2 Flow Rate FiO2 02/21/17 12:00 Room Air 02/21/17 10:59 36.5 60 20 147/64 (91) 97 Room Air 02/21/17 08:00 Room Air 02/21/17 07:31 36.4 60 20 153/76 (101) 100 Nasal Cannula 2.0 02/21/17 04:00 Nasal Cannula 2.0 02/21/17 03:53 36.8 60 19 156/69 (98) 98 Nasal Cannula 2.0 02/21/17 00:00 Nasal Cannula 2.0 02/20/17 23:38 36.9 61 18 154/68 (96) 97 Nasal Cannula 2.0 02/20/17 20:00 Nasal Cannula 2.0 02/20/17 19:00 36.5 60 20 155/68 (97) 96 Room Air 02/20/17 16:00 Room Air 02/20/17 15:10 37.0 58 16 154/66 (95) 96 Room Air Lab Results: Results Past 24 Hours Test 02/20/17 16:22 02/20/17 20:14 02/21/17 06:14 02/21/17 06:36 Range/Units Bedside Glucose 222 146 136 70-90 mg/dl White Blood Count 16.39 4.8-10.8 K/uL Red Blood Count 3.59 4.2-5.4 M/uL Hemoglobin 11.2 12.0-16.0 g/dL Hematocrit 34.2 37-47 % Mean Corpuscular Volume 95.3 80-100 fL Mean Corpuscular Hemoglobin 31.2 25-34 pg Mean Corpuscular Hemoglobin Concent 32.7 32-36 g/dl Platelet Count 354 130-400 K/uL Mean Platelet Volume 9.5 7.4-10.4 fL Neutrophils (%) (Auto) 46.6 % Lymphocytes (%) (Auto) 22.8 % Monocytes (%) (Auto) 8.5 % Eosinophils (%) (Auto) 21.2 % Basophils (%) (Auto) 0.7 % Neutrophils # (Auto) 7.62 1.4-6.5 K/uL Lymphocytes # (Auto) 3.73 1.2-3.4 K/uL Monocytes # (Auto) 1.40 0.11-0.59 K/uL Eosinophils # (Auto) 3.48 0-0.5 K/uL Basophils # (Auto) 0.12 0-0.2 K/uL RDW Standard Deviation 54.4 36.4-46.3 fL RDW Coefficient of Variation 15.7 11.5-14.5 % Immature Granulocyte % (Auto) 0.2 % Immature Granulocyte # (Auto) 0.04 0.00-0.02 K/uL Activated Partial Thromboplast Time 44.3 21.0-31.0 SECONDS Partial Thromboplastin Ratio 1.7 Sodium Level 138 136-145 mmol/L Potassium Level 4.0 3.5-5.1 mmol/L Chloride Level 108 98-107 mmol/L Carbon Dioxide Level 25 21-32 mmol/L Anion Gap 5.0 3-11 mmol/L Blood Urea Nitrogen 15 7-18 mg/dl Creatinine 0.75 0.60-1.20 mg/dl Est Creatinine Clear Calc Drug Dose 50.9 ml/min Estimated GFR () 86.0 Estimated GFR (Non- 74.2 BUN/Creatinine Ratio 19.9 10-20 Random Glucose 140 70-99 mg/dl Calcium Level 8.2 8.5-10.1 mg/dl Magnesium Level 1.7 1.8-2.4 mg/dl Test 02/21/17 09:14 02/21/17 11:28 Range/Units Bedside Glucose 137 70-90 mg/dl
[2017-02-21 15:05] VITALS: BP 158/69; PULSE 60; TEMP 36.6; O2SAT 95
[2017-02-21] MEDS ORDERED: VANCOMYCIN TROUGH ONE (17:30)
[2017-02-21 19:45] VITALS: BP 164/69; PULSE 61; TEMP 36.7; O2SAT 96
[2017-02-21] MEDS: HEPARIN SOD 5000 UNIT/0.5 ML CARP SQ SCH (21:01)
[2017-02-22 00:01] VITALS: BP 170/71; PULSE 71; TEMP 36.8; O2SAT 99
[2017-02-22 03:56] VITALS: BP 159/64; PULSE 60; TEMP 36.6; O2SAT 98
[2017-02-22] MEDS: LEVOTHYROXINE 100 MCG TAB PO SCH (06:12)
[2017-02-22 07:33] LABS: BASO % 0.9 %; BASO ABS # 0.13 K/uL (0-0.2); COMPLETE YES; EOS % 30.5 %; HEMATOCRIT 34.4 % (37-47); IG% 0.4 %; LYMPH % 16.4 %; LYMPH ABS # 2.24 K/uL (1.2-3.4); MEAN CELL VOLUME 95.3 fL (80-100); MEAN CORPUSCULAR HGB CONC 32.6 g/dl (32-36); MEAN PLATELET VOLUME 9.4 fL (7.4-10.4); MONO % 9.3 %; NEUT % 42.5 %; PLATELET COUNT 363 K/uL (130-400); RED BLOOD COUNT 3.61 M/uL (4.2-5.4)
[2017-02-22 07:36] VITALS: BP 166/78; PULSE 60; TEMP 36.6; O2SAT 98
[2017-02-22 07:58] LABS: BUN/CREATININE RATIO 20.6 (10-20); CALCIUM 8.5 mg/dl (8.5-10.1); CREATININE 0.71 mg/dl (0.60-1.20); MAGNESIUM 1.7 mg/dl (1.8-2.4); POTASSIUM 3.9 mmol/L (3.5-5.1)
[2017-02-22] MEDS: FUROSEMIDE 40 MG TAB PO SCH ×2 (09:00→09:38)
[2017-02-22] MEDS: CLOPIDOGREL BISULFATE 75 MG TAB PO SCH (09:37)
[2017-02-22] MEDS: ATORVASTATIN 40 MG TAB PO SCH (09:37)
[2017-02-22] MEDS: LACTOBACILLUS ACIDOPHILUS (FLORANEX) TAB PO SCH ×2 (09:37→22:21)
[2017-02-22] MEDS: RANITIDINE HCL 150 MG TAB PO SCH ×2 (09:37→22:21)
[2017-02-22] MEDS: DULOXETINE HCL 60 MG CAP PO SCH (09:37)
[2017-02-22] MEDS: ASPIRIN 81 MG ECTAB PO SCH (09:38)
[2017-02-22] MEDS: LISINOPRIL 5 MG TAB PO SCH (09:38)
[2017-02-22] MEDS: DILTIAZEM HCL 30 MG TAB PO SCH ×3 (09:38→22:21)
[2017-02-22] MEDS: RANOLAZINE 500 MG ER TAB PO SCH ×2 (09:38→22:21)
[2017-02-22] MEDS: CHOLECALCIFEROL 1000 INTER.UNIT TAB PO SCH (09:39)
[2017-02-22] MEDS: ISOSORBIDE MONONITRATE 60 MG TABCR PO SCH (09:39)
[2017-02-22] MEDS: METOPROLOL SUCC 50MG EXT REL TAB PO SCH ×2 (09:39→22:21)
[2017-02-22] MEDS: PREGABALIN 25MG CAP PO SCH ×2 (09:44→22:20)
[2017-02-22] MEDS: MoRPHine SULFATE CR 60 MG TAB (MS CONTIN) PO SCH ×2 (09:45→22:21)
[2017-02-22] MEDS: INSULIN GLARGINE SOLOSTAR 100 UNITS/ML 3 ML PEN SC SCH (09:48)
[2017-02-22] MEDS: INSULIN ASPART 100 UNITS/ML 3 ML PEN SC SCH ×4 (09:48→21:00)
[2017-02-22] MEDS: HEPARIN SOD 5000 UNIT/0.5 ML CARP SQ SCH ×2 (09:49→22:24)
[2017-02-22] MEDS ORDERED: LEVOFLOXACIN CONSULT ACTIVE PRN (10:45)
[2017-02-22] MEDS ORDERED: LACTULOSE SYRUP 30 GM/45 ML UDP PO ONE (10:45)
--- NOTE | 2017-02-22 11:46 | PROGRESS NOTE ---
DATE: 02/22/2017 FOLLOWUP VISIT SUBJECTIVE: The patient is an 81-year-old diabetic with a history of severe diffuse vascular disease. She was admitted with pneumonia and had a non-STEMI infarct. We have been managing her conservatively due to her significant vascular history. She has been doing well and actually was ready to be transferred back to [facility] today, but because of the holiday, they cannot provide transportation until tomorrow. She has no new cardiac complaints. OBJECTIVE: GENERAL: She is alert and oriented. VITAL SIGNS: Blood pressure is 145/70, pulse is regular at 60. She is afebrile. HEENT: She is normocephalic. Pupils are equal and reactive to light. Extraocular muscles are intact bilaterally. NECK: The neck veins are flat. Carotids have good upstrokes bilaterally without bruits. Thyroid is nonpalpable. RESPIRATORY: Breath sounds equal bilaterally and clear to auscultation. CARDIOVASCULAR: Heart has a regular rhythm. Normal S1, S2. No S3, S4. No cardiac rubs or murmurs. GASTROINTESTINAL: Abdomen is soft, nontender without organomegaly. EXTREMITIES: Free of edema, digit clubbing, or cyanosis. NEUROLOGIC: Grossly intact. SKIN: Warm to touch. LYMPH NODES: Negative to palpation. IMPRESSION: 1. Non-ST elevation myocardial infarct. 2. Severe diffuse arteriosclerotic vascular disease. 3. Diabetes mellitus. 4. Pneumonia. RECOMMENDATIONS: The patient is doing well. I believe that she can be discharged per the hospitalist service.
[2017-02-22] MEDS: LEVOFLOXACIN 750 MG TAB PO SCH (11:51)
--- NOTE | 2017-02-22 14:06 | Pharmacy Progress Note ---
Pharmacy Glycemic Short Note 2 Date of Service Feb 22, 2017. OUTPATIENT ANTIDIABETIC REGIMEN: * Novolin 70/30 pre-mixed insulin 60 units in AM + 46units in PM * Total daily outpatient dose = 106 units/day ASSESSMENT: * Patient has been receiving ~ 40 units of insulin per day with near adequate control * 25 units of basal insulin with Lantus * 15-18 units of prandial/correctional insulin with NovoLog * BSGs 02/21: 136, 137, 96, 148 * BSGs 02/22: 187, 172 * AM fasting BSG elevated indicating more basal insulin is needed. Patient takes much high doses as an outpatient than what she is receiving in house. It is possible that Lantus is not lasting a full 24hrs for this patient since it is being dosed in the morning and highest BSG of the day is right before dose is administered. * Will add a small HS dose of Lantus for better AM fasting control * Post-prandial BSGs are in goal range, no changes needed to CF/CR PLAN FOR INPATIENT GLYCEMIC CONTROL: * Hold outpatient premixed insulin regimen --> may resume at d.c * Basal insulin * Lantus 25 units SQ daily in AM + 6 units at HS * Bolus insulin * NovoLog per scale ACHS or Q6hrs while NPO * Goal Range: Low 110 mg/dL - High 140 mg/dL * Correction Factor: 25 mg/dL/unit * Nutritional / Prandial insulin per carb ratio of 1 unit per 7 grams CHO consumed
[2017-02-22 15:30] VITALS: BP_SYST 176; BP_SYST 204; BP_DIAS 124; BP_DIAS 72; PULSE 60; TEMP 37; O2SAT 98
[2017-02-22] MEDS: AMOXICILLIN/CLAVULANATE TAB 875 MG TAB PO SCH (17:36)
[2017-02-22 18:36] VITALS: BP 154/72
--- NOTE | 2017-02-22 18:56 | Progress Note ---
Internal Med Progress Note Date of Service: Feb 22, 2017. Provider Documentation: SUBJECTIVE: resting comfortably sob and cough much improved afebrile eating ok' ok for discharge in am OBJECTIVE: Vital Signs-as noted below Exam: General-alert and oriented. not in distress ENT-Normal hearing Neck-no neck masses Lungs-Cta b/l no wheezing or crackles Heart-S1 and S2 heard regular No murmurs Abdomen-Soft Bowel sounds present Non tender No distension Extremities- No erythema Skin stage 1/2 sacral decubitus ulcer Neuro- alert and awake moves extremities Lab data as noted below. ASSESSMENT & PLAN: SEPSIS, LIKELY DUE TO HCAP Roxanna Milner patient presents with fever and altered mental status patient is immunocompromised given her history of splenectomy multifocal pneumonia on imaging studies flu PCR negative await cx on iv vanco and cefepime f/u stool studies as had diarrhea- no bowel movement since admission recently treated with Bactrim for MRSA in sacral decubitus ulcer continue current abx for now d/c iv abx started on po Levaquin and augmentin NSTEMI HX CAD; SSS S/P PACEMAKER initial troponin 0.285; repeat elevated at 6.05. trending down had chest pressure on presentation but resolved now started on iv heparin On medical therapy including: ASA, Plavix, fenofibrate, metoprolol, isosorbide, diltiazem, and Ranexa; holding Lisinopril due to JOSÉ MIGUEL Was not on statin therapy, intolerant in the past per outpatient notes however is considering to re-trial - to try atorvastatin 40mg conservative management as per cardiology. to stopped iv heparin . stable JOSÉ MIGUEL from above baseline creat ~ 0.8, up to 1.6 on presentation resolved CHRONIC SYSTOLIC AND DIASTOLIC CHF holding ACEi and furosemide due to JOSÉ MIGUEL on beta wallace echo 11/2015 - EF 45-50%, grade II diastolic dysfunction restart acei and diuretics today as JOSÉ MIGUEL resolved DM hgb7.4 10/2016 on 70/30 as an outpatient on Lantus + SSI while hospitalized will monitor PVD, SMA STENOSIS S/P STENTING on ASA and Plavix HX TIA -on ASA and Plavix SACRAL DECUBITUS ULCER stage 1/2; RIGHT PLANTAR FOOT ULCER- resolved present on admission wound care consult HYPOTHYROIDISM on levothyroxine DVT PROPHYLAXIS hep sub q CODE STATUS Patient is a DNR as per h and p DISPOSITION monitor in tele pt/ot plan for roxanna milner in am Vital Signs: Date Time Temp Pulse Resp B/P (MAP) Pulse Ox O2 Delivery O2 Flow Rate FiO2 02/22/17 18:36 154/72 (99) 02/22/17 16:00 Room Air 02/22/17 15:30 37.0 60 19 204/124 (150) 98 Room Air 176/72 (106) 02/22/17 12:00 Room Air 02/22/17 08:00 Room Air 02/22/17 07:36 36.6 60 15 166/78 (107) 98 Room Air 02/22/17 04:00 Nasal Cannula 2.0 02/22/17 03:56 36.6 60 18 159/64 (95) 98 Nasal Cannula 2.0 02/22/17 00:01 36.8 71 18 170/71 (104) 99 Room Air 02/22/17 00:00 Nasal Cannula 2.0 02/21/17 20:00 Room Air 02/21/17 19:45 36.7 61 20 164/69 (100) 96 Room Air Lab Results: Results Past 24 Hours Test 02/21/17 20:34 02/22/17 06:41 02/22/17 07:21 02/22/17 11:03 Range/Units Bedside Glucose 148 187 172 70-90 mg/dl White Blood Count 13.70 4.8-10.8 K/uL Red Blood Count 3.61 4.2-5.4 M/uL Hemoglobin 11.2 12.0-16.0 g/dL Hematocrit 34.4 37-47 % Mean Corpuscular Volume 95.3 80-100 fL Mean Corpuscular Hemoglobin 31.0 25-34 pg Mean Corpuscular Hemoglobin Concent 32.6 32-36 g/dl Platelet Count 363 130-400 K/uL Mean Platelet Volume 9.4 7.4-10.4 fL Neutrophils (%) (Auto) 42.5 % Lymphocytes (%) (Auto) 16.4 % Monocytes (%) (Auto) 9.3 % Eosinophils (%) (Auto) 30.5 % Basophils (%) (Auto) 0.9 % Neutrophils # (Auto) 5.81 1.4-6.5 K/uL Lymphocytes # (Auto) 2.24 1.2-3.4 K/uL Monocytes # (Auto) 1.28 0.11-0.59 K/uL Eosinophils # (Auto) 4.18 0-0.5 K/uL Basophils # (Auto) 0.13 0-0.2 K/uL RDW Standard Deviation 54.7 36.4-46.3 fL RDW Coefficient of Variation 15.6 11.5-14.5 % Immature Granulocyte % (Auto) 0.4 % Immature Granulocyte # (Auto) 0.06 0.00-0.02 K/uL Activated Partial Thromboplast Time 25.7 21.0-31.0 SECONDS Partial Thromboplastin Ratio 1.0 Sodium Level 137 136-145 mmol/L Potassium Level 3.9 3.5-5.1 mmol/L Chloride Level 101 98-107 mmol/L Carbon Dioxide Level 28 21-32 mmol/L Anion Gap 7.0 3-11 mmol/L Blood Urea Nitrogen 15 7-18 mg/dl Creatinine 0.71 0.60-1.20 mg/dl Est Creatinine Clear Calc Drug Dose 52.2 ml/min Estimated GFR () 91.9 Estimated GFR (Non- 79.3 BUN/Creatinine Ratio 20.6 10-20 Random Glucose 169 70-99 mg/dl Calcium Level 8.5 8.5-10.1 mg/dl Magnesium Level 1.7 1.8-2.4 mg/dl Test 02/22/17 15:29 02/22/17 16:01 Range/Units Bedside Glucose 66 101 70-90 mg/dl
[2017-02-22 19:28] VITALS: BP 166/67; PULSE 60; TEMP 37; O2SAT 96
[2017-02-22] MEDS ORDERED: INSULIN GLARGINE SOLOSTAR 100 UNITS/ML 3 ML PEN SC SCH (21:00)
[2017-02-23 00:08] VITALS: BP 169/72; PULSE 76; TEMP 37; O2SAT 100
[2017-02-23 03:40] VITALS: BP 129/53; PULSE 60; TEMP 36.9; O2SAT 97
[2017-02-23] MEDS: LEVOTHYROXINE 100 MCG TAB PO SCH (06:05)
[2017-02-23 06:38] LABS: BASO % 1.4 %; BASO ABS # 0.19 K/uL (0-0.2); COMPLETE YES; EOS % 24.5 %; HEMATOCRIT 36.5 % (37-47); IG% 0.5 %; LYMPH % 22.1 %; LYMPH ABS # 2.97 K/uL (1.2-3.4); MEAN CELL VOLUME 95.1 fL (80-100); MEAN CORPUSCULAR HGB CONC 32.6 g/dl (32-36); MEAN PLATELET VOLUME 9.6 fL (7.4-10.4); MONO % 12.6 %; NEUT % 38.9 %; PLATELET COUNT 378 K/uL (130-400); RED BLOOD COUNT 3.84 M/uL (4.2-5.4); WHITE BLOOD COUNT 13.45 K/uL (4.8-10.8)
[2017-02-23 07:07] LABS: BUN/CREATININE RATIO 17.4 (10-20); CALCIUM 9.1 mg/dl (8.5-10.1); CREATININE 0.76 mg/dl (0.60-1.20); MAGNESIUM 1.9 mg/dl (1.8-2.4); POTASSIUM 4.2 mmol/L (3.5-5.1)
[2017-02-23 08:02] VITALS: BP 178/72; PULSE 60; TEMP 36.4; O2SAT 98
[2017-02-23] MEDS: AMOXICILLIN/CLAVULANATE TAB 875 MG TAB PO SCH (08:49)
[2017-02-23] MEDS: DULOXETINE HCL 60 MG CAP PO SCH (08:51)
[2017-02-23] MEDS: DILTIAZEM HCL 30 MG TAB PO SCH (08:51)
[2017-02-23] MEDS: ASPIRIN 81 MG ECTAB PO SCH (08:51)
[2017-02-23] MEDS: ISOSORBIDE MONONITRATE 60 MG TABCR PO SCH (08:52)
[2017-02-23] MEDS: FUROSEMIDE 40 MG TAB PO SCH (08:52)
[2017-02-23] MEDS: LACTOBACILLUS ACIDOPHILUS (FLORANEX) TAB PO SCH (08:52)
[2017-02-23] MEDS: ATORVASTATIN 40 MG TAB PO SCH (08:53)
[2017-02-23] MEDS: RANOLAZINE 500 MG ER TAB PO SCH (08:53)
[2017-02-23] MEDS: CLOPIDOGREL BISULFATE 75 MG TAB PO SCH (08:53)
[2017-02-23] MEDS: METOPROLOL SUCC 50MG EXT REL TAB PO SCH (08:54)
[2017-02-23] MEDS: LISINOPRIL 5 MG TAB PO SCH (08:54)
[2017-02-23] MEDS: CHOLECALCIFEROL 1000 INTER.UNIT TAB PO SCH (08:54)
[2017-02-23] MEDS: RANITIDINE HCL 150 MG TAB PO SCH (08:54)
[2017-02-23] MEDS: HEPARIN SOD 5000 UNIT/0.5 ML CARP SQ SCH (08:57)
[2017-02-23] MEDS: INSULIN ASPART 100 UNITS/ML 3 ML PEN SC SCH ×2 (08:58→12:06)
[2017-02-23] MEDS: INSULIN GLARGINE SOLOSTAR 100 UNITS/ML 3 ML PEN SC SCH (08:59)
[2017-02-23] MEDS: PREGABALIN 25MG CAP PO SCH (09:03)
[2017-02-23] MEDS: MoRPHine SULFATE CR 60 MG TAB (MS CONTIN) PO SCH (09:03)
[2017-02-23 10:17] VITALS: PULSE 64; O2SAT 97
[2017-02-23] MEDS ORDERED: LPT40 PO (11:22)
[2017-02-23] MEDS ORDERED: LVQ750 PO (11:22)
[2017-02-23] MEDS ORDERED: AMOX1TAB43 PO (11:22)
--- NOTE | 2017-02-23 11:25 | Discharge Instructions ---
Discharge Instructions Date of Service Feb 23, 2017. Admission Reason for Admission: Sepsis Discharge Discharge Diagnosis / Problem: sepsis, Pneumonia, NSTEMI Discharge Goals Goal(s): Decrease discomfort, Improve function Activity Recommendations Activity Level: Up Ad Reena Therapies: Physical Therapy, Occupational Therapy . Additional Information Patient informed of condition: Yes Advance Directives: Yes DNR: Yes Level of Care: Skilled Communicable Disease: No Prognosis: Stable Retana Catheter: No Instructions / Follow-Up Instructions / Follow-Up FOLLOWUP WITH FAMILY DOCTOR ON Mar AT 12:45PM. FOLLOWUP WITH WOUND CARE FOR SACRAL DECUBITUS ULCER. Current Hospital Diet Patient's current hospital diet: AHA Diet (Heart Healthy), Low Sodium Diet (2gm Na), Diabetes Type 2 Diet Discharge Diet Recommended Diet: AHA Diet (Heart Healthy), Diabetes Type 2 Diet Pending Studies Studies pending at discharge: no Physician Orders On Transfer Special Precautions: FALL AND ASPIRATION PRECAUTIONS Vital Signs: EVERY 8HRS Laboratory Results Hemoglobin A1c Test 02/19/17 06:32 Range/Units Estimated Average Glucose 177 mg/dl Hemoglobin A1c 7.8 H 4.5-5.6 % Medical Emergencies . Who to Call and When: Medical Emergencies: If at any time you feel your situation is an emergency, please call 911 immediately. . Non-Emergent Contact Non-Emergency issues call your: Primary Care Provider . . "Provider Documentation" section prepared by Westley Guido. . Core Measure Problem Core Measures: None
[2017-02-23] MEDS ORDERED: CLIN300C10 PO (11:26)
[2017-02-23] MEDS ORDERED: MORP1TAB13 PO (11:28)
[2017-02-23] MEDS ORDERED: MORP1CAP PO (11:28)
[2017-02-23] MEDS ORDERED: LORA-741 PO (11:28)
[2017-02-23] MEDS ORDERED: OXYC-164 PO (11:28)
[2017-02-23 11:30] VITALS: BP 158/70; PULSE 62; TEMP 36.8; O2SAT 98
--- NOTE | 2017-02-23 11:34 | Progress Note ---
Internal Med Progress Note Date of Service: Feb 23, 2017. Provider Documentation: SUBJECTIVE: resting comfortably DENIES SOB COUGH MUCH IMPROVED MOVED BOWELS EATING OK OK FOR DISCHARGE OBJECTIVE: Vital Signs-as noted below Exam: General-alert and oriented. not in distress ENT-Normal hearing Neck-no neck masses Lungs-Cta b/l no wheezing or crackles Heart-S1 and S2 heard regular No murmurs Abdomen-Soft Bowel sounds present Non tender No distension Extremities- No erythema Skin stage 1/2 sacral decubitus ulcer Neuro- alert and awake moves extremities Lab data as noted below. ASSESSMENT & PLAN: SEPSIS, LIKELY DUE TO HCAP [facility] patient presents with fever and altered mental status patient is 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 trending down had chest pressure on presentation but resolved now started on iv heparin On medical therapy including: ASA, Plavix, fenofibrate, metoprolol, isosorbide, diltiazem, and Ranexa; holding Lisinopril due to JOSÉ MIGUEL Was not on statin therapy, intolerant in the past per outpatient notes however is considering to re-trial - to try atorvastatin 40mg conservative management as per cardiology.stopped iv heparin . stable added atorvastatin at discharge. f/u with pcp for tolerance JOSÉ MIGUEL from above baseline creat ~ 0.8, up to 1.6 on presentation resolved CHRONIC SYSTOLIC AND DIASTOLIC CHF holding ACEi and furosemide due to JOSÉ MIGUEL on beta wallace echo 11/2015 - EF 45-50%, grade II diastolic dysfunction restarted acei and diuretics DM hgb7.4 10/2016 on 70/30 as an outpatient on Lantus + SSI while hospitalized hba1c 7.8 f/u with pcp. PVD, SMA STENOSIS S/P STENTING on ASA and Plavix HX TIA -on ASA and Plavix SACRAL DECUBITUS ULCER stage 1/2; RIGHT PLANTAR FOOT ULCER- resolved present on admission wound care consult f/u with wound care HYPOTHYROIDISM on levothyroxine DVT PROPHYLAXIS hep sub q CODE STATUS Patient is a DNR as per h and p DISPOSITION discharged to [facility]. Vital Signs: Date Time Temp Pulse Resp B/P (MAP) Pulse Ox O2 Delivery O2 Flow Rate FiO2 02/23/17 08:02 36.4 60 20 178/72 (107) 98 Room Air 02/23/17 08:00 Room Air 02/23/17 04:00 Nasal Cannula 2.0 02/23/17 03:40 36.9 60 18 129/53 (78) 97 Nasal Cannula 2.0 02/23/17 00:08 37.0 76 18 169/72 (104) 100 Nasal Cannula 2.0 02/23/17 00:00 Nasal Cannula 2.0 02/22/17 20:00 Nasal Cannula 2.0 02/22/17 19:28 37.0 60 18 166/67 (100) 96 Room Air 02/22/17 18:36 154/72 (99) 02/22/17 16:00 Room Air 02/22/17 15:30 37.0 60 19 204/124 (150) 98 Room Air 176/72 (106) 02/22/17 12:00 Room Air Lab Results: Results Past 24 Hours Test 02/22/17 15:29 02/22/17 16:01 02/22/17 20:33 02/23/17 06:16 Range/Units Bedside Glucose 66 101 117 70-90 mg/dl White Blood Count 13.45 4.8-10.8 K/uL Red Blood Count 3.84 4.2-5.4 M/uL Hemoglobin 11.9 12.0-16.0 g/dL Hematocrit 36.5 37-47 % Mean Corpuscular Volume 95.1 80-100 fL Mean Corpuscular Hemoglobin 31.0 25-34 pg Mean Corpuscular Hemoglobin Concent 32.6 32-36 g/dl Platelet Count 378 130-400 K/uL Mean Platelet Volume 9.6 7.4-10.4 fL Neutrophils (%) (Auto) 38.9 % Lymphocytes (%) (Auto) 22.1 % Monocytes (%) (Auto) 12.6 % Eosinophils (%) (Auto) 24.5 % Basophils (%) (Auto) 1.4 % Neutrophils # (Auto) 5.23 1.4-6.5 K/uL Lymphocytes # (Auto) 2.97 1.2-3.4 K/uL Monocytes # (Auto) 1.69 0.11-0.59 K/uL Eosinophils # (Auto) 3.30 0-0.5 K/uL Basophils # (Auto) 0.19 0-0.2 K/uL RDW Standard Deviation 52.4 36.4-46.3 fL RDW Coefficient of Variation 15.3 11.5-14.5 % Immature Granulocyte % (Auto) 0.5 % Immature Granulocyte # (Auto) 0.07 0.00-0.02 K/uL Activated Partial Thromboplast Time 27.1 21.0-31.0 SECONDS Partial Thromboplastin Ratio 1.0 Sodium Level 134 136-145 mmol/L Potassium Level 4.2 3.5-5.1 mmol/L Chloride Level 99 98-107 mmol/L Carbon Dioxide Level 30 21-32 mmol/L Anion Gap 6.0 3-11 mmol/L Blood Urea Nitrogen 13 7-18 mg/dl Creatinine 0.76 0.60-1.20 mg/dl Est Creatinine Clear Calc Drug Dose 49.9 ml/min Estimated GFR () 84.7 Estimated GFR (Non- 73.1 BUN/Creatinine Ratio 17.4 10-20 Random Glucose 184 70-99 mg/dl Calcium Level 9.1 8.5-10.1 mg/dl Magnesium Level 1.9 1.8-2.4 mg/dl Test 02/23/17 06:44 Range/Units Bedside Glucose 169 70-90 mg/dl
--- NOTE | 2017-02-23 11:36 | Discharge Summary ---
Discharge Summary Date of Service Feb 23, 2017. Discharge Summary Admission Date: Feb 18, 2017 at 14:59 Discharge Date: Feb 23, 2017 Discharge Disposition: [facility] facility Principal Diagnosis: SEPSIS PNEUMONIA NSTEMI ARF Secondary Diagnoses/Problems: 1) CAD (coronary artery disease) Permanent Comment: 05/2006 - inferior wall MD; cath at that time - demonstrated multivessel CAD with a 100% circumflex stenosis, 90% RCA stenosis, 50% left main stenosis, and a 50% LAD stenosis. Status post CABG, receiving a DARLING to the LAD and SVG to the diagonal. Status: Chronic (2) Carotid stenosis Permanent Comment: 04/2016 US - Right carotid artery duplex examination indicates evidence of <50% stenosis of the internal carotid artery. Left carotid artery duplex examination indicates evidence of 50-69% stenosis of the internal carotid artery Status: Chronic (3) Chronic pancreatitis Status: Chronic (4) DM2 (diabetes mellitus, type 2) Status: Chronic (5) Hypothyroidism Status: Chronic (6) Pacemaker Status: Chronic (7) SMA stenosis Permanent Comment: SMA stent on 07/24/12 Status: Chronic (8) SSS (sick sinus syndrome) Status: Chronic (9) Systolic and diastolic CHF, chronic Permanent Comment: echo 11/2015 - EF 45-50%, grade II diastolic dysfunction Status: Chronic (10) TIA (transient ischemic attack) Status: Chronic (11) Valvular disease Permanent Comment: right SFA, popliteal, and AT balloon angioplasty on 03/10/16 Status: Chronic Procedures: CXR: Mild cardiomegaly and mild chronic interstitial thickening. Bibasilar opacities, likely atelectatic. CT ABD/PELVIS: 1. Patchy multifocal consolidative and groundglass opacities of the lung bases, left greater the right suggests pneumonia. 2. Mild rectal wall thickening with ill-defined soft tissue prominence within the region of the anal sphincter. Correlate with patient history and clinical exam. No bowel obstruction. 3. Mild wall thickening of the urinary bladder may reflect mild cystitis. 4. Prior cholecystectomy and hysterectomy. 5. Unchanged heterogeneous areas of soft tissue and calcification are again seen within the proximal thighs, bilateral gluteal distribution and lower anterior abdominal wall, Some of which are within the subcutaneous fat and other foci likely intramuscular. These findings are likely benign and may reflect injection granulomas. Consultations: CARDIOLOGY Medication Reconciliation New Medications: Clindamycin Hcl (Clindamycin Hcl) 300 Mg Cap 600 MG PO TID for 5 Days Atorvastatin (Atorvastatin Calcium) 40 Mg Tab 40 MG PO QAM, #30 TAB 2 Refills Levofloxacin (Levofloxacin) 750 Mg Tab 750 MG PO DAILY@11 for 5 Days, TAB Continued Medications: Acetaminophen Tab (Tylenol) 325 Mg Tab 650 MG PO Q4 PRN for Pain Aspirin (Aspirin 81) 81 Mg Tab 162 MG PO QAM Cholecalciferol (Vitamin D) 2,000 Unit Tab 2000 UNITS PO DAILY Clopidogrel Bisulfate (Plavix) 75 Mg Tab 75 MG PO DAILY Dextrose (Diabetic Use) (Glucose) 40 % Gel Diltiazem Hcl (Cardizem) 30 Mg Tab 30 MG PO TID Duloxetine Hcl (Cymbalta) 60 Mg Cap 60 MG PO DAILY Fenofibrate (Tricor ) 134 Mg Cap 134 MG PO DAILYBB Furosemide (Lasix) 40 Mg Tab 40 MG PO DAILY Glucagon (Glucagon Emergency Kit) 1 Mg Kit Home O2 Therapy (Oxygen) Gas 2 LITERS NA PRN Insulin Isophane & Reg (Human) (Novolin 70/30 Relion) 1 Inj Inj 60 UNIT(INT) SC QDB Insulin Isophane & Reg (Human) (Novolin 70/30 Relion) 1 Inj Inj 46 UNITS SC QPM Isosorbide Mononitrate Ext Rel (Imdur Ext Rel) 120 Mg Ertab 120 MG PO QAM Lactobacillus (Lactinex) Chw 1 TAB PO BID, CHW Levothyroxine Sodium (Levothyroxine Sodium) 100 Mcg Tab 1 TAB PO DAILY for 30 Days, #30 TAB 5 Refills Lisinopril (Zestril) 5 Mg Tab 5 MG PO DAILY Loperamide Hcl (Imodium) 2 Mg Cap 2 MG PO BID PRN for Diarrhea, CAP Lorazepam (Ativan) 0.5 Mg Tab 0.5 MG PO TID PRN, #10 TAB (This prescription has been renewed) Metoprolol Succ (Toprol Xl) (Toprol-Xl ) 100 Mg Tabcr 100 MG PO BID Morphine Sulfate (Morphine Sulfate Er) 60 Mg Tab 60 MG PO BID, #10 (This prescription has been renewed) Morphine Sulfate (Ayesha) 10 Mg Cap 10 MG PO QAM, #10 (This prescription has been renewed) TAKES WITH 60MG QAM TO EQUAL 70MG Nitroglycerin (Nitroglycerin Lingual) 0.4 Mg/[place] Spr 1 SPRAY PO Q5M PRN for Pain Ondansetron Hcl (Zofran) 4 Mg Tab 4 MG PO DAILY PRN for Nausea Oxycodone Hcl (Oxycodone Hcl) 10 Mg Tab 10 MG PO Q4H PRN for Pain, #10 (This prescription has been renewed) Polyethylene Glycol 3350 (Miralax) 1 Pow Pow 1 DOSE PO DAILY Pregabalin (Lyrica) 25 Mg Cap 25 MG PO BID Ranitidine (Zantac) 150 Mg Tab 150 MG PO BID Ranolazine (Ranexa) 500 Mg Tab 500 MG PO BID Senna/Docusate Sod (Senokot S) 1 Tab Tab 4 TAB PO BID Zinc Oxide (Topical) (Desitin) 40 % Oin 1 APPLN TOP DAILY Admission Information HPI (per Admitting provider): 81 year old female who was sent to the ED from [facility] for evaluation of fever and altered mental status. Patient was recently admitted to [facility] 01/27 - 01/30 for nausea, vomiting, and diarrhea that was felt to be due to viral gastroenteritis. Patient also had a sacral wound that was cultured and grew MRSA. Patient was treated with Bactrim for 7 days. This morning at the detention, patient had increasing confusion and had a fever of 103 with chills and rigors. Patient was then transferred to the ED for further evaluation. At the time of my exam, patient is lethargic at times and I would consider her a poor historian, she is unable to give details about her illness today. She reports that she woke up feeling "rotten". She reports a cough without sputum production. She reports intermittent episodes of left sided chest pain that she describes as pressure. She reports it came and resolved quickly. She is unable to give any further details regarding associated symptoms. She has had diarrhea for 2 days. She describes it as watery. She denies abdominal pain, nausea, or vomiting. No urinary symptoms. In the ED, patient had a low grade fever and mild tachycardia. WBC is 15K. Glucose os 453 which improved with IVF administration. CT abd/pelvis was obtained which was negative for acute abdominal findings however did show patchy multifocal consolidative and groundglass opacities of the lung bases, left greater the right suggests pneumonia. Initial troponin was 0.285 and EKG demonstrated a paced rhythm. Patient was given IVF and IV Zosyn. Physical Exam (per Admitting): General Appearance: WD/WN, no apparent distress Head: normocephalic, atraumatic Eyes: normal inspection, EOMI, sclerae normal ENT: hearing grossly normal, + pertinent finding (mucous membranes dry) Neck: supple, no JVD, trachea midline Respiratory/Chest: no respiratory distress, + decreased breath sounds Cardiovascular: no edema, normal peripheral pulses, + tachycardia (HR in the 90s, regular rhythm) Abdomen/GI: normal bowel sounds, non tender, soft, no organomegaly Extremities/Musculoskelatal: normal inspection, no calf tenderness, normal capillary refill Neurologic/Psych: oriented x 3, + pertinent finding (patient arouses to verbal stimuli easily however falls asleep quickly during exam, answers questions appropriately at times) Skin: + pertinent finding (sacral decubitus ulcer noted with surrounding redness that is blanchable, no significant drainage; small ulcer noted to the plantar surface of the right foot that is healing well without drainage or surrounding redness) Hospital Course SEPSIS, LIKELY DUE TO HCAP [facility] patient presents with fever and altered mental status patient is 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 trending down had chest pressure on presentation but resolved now started on iv heparin On medical therapy including: ASA, Plavix, fenofibrate, metoprolol, isosorbide, diltiazem, and Ranexa; holding Lisinopril due to JOSÉ MIGUEL Was not on statin therapy, intolerant in the past per outpatient notes however is considering to re-trial - to try atorvastatin 40mg conservative management as per cardiology.stopped iv heparin . stable added atorvastatin at discharge. f/u with pcp for tolerance JOSÉ MIGUEL from above baseline creat ~ 0.8, up to 1.6 on presentation resolved CHRONIC SYSTOLIC AND DIASTOLIC CHF holding ACEi and furosemide due to JOSÉ MIGUEL on beta wallace echo 11/2015 - EF 45-50%, grade II diastolic dysfunction restarted acei and diuretics DM hgb7.4 10/2016 on 70/30 as an outpatient on Lantus + SSI while hospitalized hba1c 7.8 f/u with pcp. PVD, SMA STENOSIS S/P STENTING on ASA and Plavix HX TIA -on ASA and Plavix SACRAL DECUBITUS ULCER stage 1/2; RIGHT PLANTAR FOOT ULCER- resolved present on admission wound care consult f/u with wound care HYPOTHYROIDISM on levothyroxine DVT PROPHYLAXIS hep sub q CODE STATUS Patient is a DNR as per h and p DISPOSITION discharged to [facility]. Total time spent on discharge = 40MINUTES This includes examination of the patient, discharge planning, medication reconciliation, and communication with other providers. Discharge Instructions Please take this sheet to every appointment for the next month Discharge Instructions Date of Service Feb 23, 2017. Admission Reason for Admission: Sepsis Discharge Discharge Diagnosis / Problem: sepsis, Pneumonia, NSTEMI Discharge Goals Goal(s): Decrease discomfort, Improve function Activity Recommendations Activity Level: Up Ad Reena Therapies: Physical Therapy, Occupational Therapy . Additional Information Patient informed of condition: Yes Advance Directives: Yes DNR: Yes Level of Care: Skilled Communicable Disease: No Prognosis: Stable Retana Catheter: No Instructions / Follow-Up Instructions / Follow-Up FOLLOWUP WITH FAMILY DOCTOR ON Mar AT 12:45PM. FOLLOWUP WITH WOUND CARE FOR SACRAL DECUBITUS ULCER. Current Hospital Diet Patient's current hospital diet: AHA Diet (Heart Healthy), Low Sodium Diet (2gm Na), Diabetes Type 2 Diet Discharge Diet Recommended Diet: AHA Diet (Heart Healthy), Diabetes Type 2 Diet Pending Studies Studies pending at discharge: no Physician Orders On Transfer Special Precautions: FALL AND ASPIRATION PRECAUTIONS Vital Signs: EVERY 8HRS Laboratory Results Hemoglobin A1c Test 02/19/17 06:32 Range/Units Estimated Average Glucose 177 mg/dl Hemoglobin A1c 7.8 H 4.5-5.6 % Medical Emergencies . Who to Call and When: Medical Emergencies: If at any time you feel your situation is an emergency, please call 911 immediately. . Non-Emergent Contact Non-Emergency issues call your: Primary Care Provider . .
[2017-02-23] MEDS: LEVOFLOXACIN 750 MG TAB PO SCH (12:02)
[2017-02-23] MEDS ORDERED: INSULIN GLARGINE SOLOSTAR 100 UNITS/ML 3 ML PEN SC ONE (12:15)
[2017-02-23 13:00] VITALS: BP 158/70; PULSE 62; TEMP 36.8; O2SAT 98
[2017-02-24] MEDS ORDERED: INSULIN GLARGINE SOLOSTAR 100 UNITS/ML 3 ML PEN SC SCH (21:00)
== END 2017-02-23 15:17 | DRG 871 ==
LOC: EDBD 10:37 → C.EDC 10:39 → C.2T 14:59 → ENRESERV 15:23
PROVIDERS: ADMIT Internal Medicine; ATTEND Internal Medicine
DX: A41.9 Sepsis, unspecified organism (principal); J18.9 Pneumonia, unspecified organism; I21.4 Non-ST elevation (NSTEMI) myocardial infarction; K86.1 Other chronic pancreatitis; N17.9 Acute kidney failure, unspecified; I50.42 Chronic combined systolic (congestive) and diastolic (congestive) heart failure; L89.152 Pressure ulcer of sacral region, stage 2; I25.10 Atherosclerotic heart disease of native coronary artery without angina pectoris; L89.892 Pressure ulcer of other site, stage 2; E11.9 Type 2 diabetes mellitus without complications; E03.9 Hypothyroidism, unspecified; Z95.0 Presence of cardiac pacemaker; Z90.710 Acquired absence of both cervix and uterus; Z90.49 Acquired absence of other specified parts of digestive tract; Z79.4 Long term (current) use of insulin; Z79.82 Long term (current) use of aspirin; Z86.73 Personal history of transient ischemic attack (TIA), and cerebral infarction without residual deficits